=== PATIENT | female | born 1940 | race Caucasian/White ===

== ENCOUNTER 2024-10-07 16:29 | Outpatient (NON) | payer MEDICARE, SELFPAY ==
[2024-10-07 17:10] LABS: Add Urine Microscopic? YES; Appearance Urine Sl Cloudy (Clear); Bilirubin Urine Negative (Negative); Blood Urine Trace-intact (Negative); Color Urine Light Yellow (Yellow); Glucose Urine UA 3+ (Negative); Ketones Urine Negative (Negative); Leukocyte Esterase Ur 2+ (Negative); Nitrate Urine Positive (Negative); Protein Urine Negative (Negative); Urobilinogen Urine 0.2 mg/dL (0.2-1.0)
[2024-10-07 17:18] LABS: Creatinine Urine 31.01 mg/dL (40-278); MALB Creatinine Ratio 97.3 mg/g (0-30); Microalbumin Urine Random 30.2 mg/L
[2024-10-07 17:19] LABS: Bacteria Urine 2+ /hpf; RBC Urine 0-2 /hpf (0-2); Renal Epithelial Cells Urine Few /hpf; Squamous Epithelial Cell Urine Few /hpf (Few); WBC Urine >75 /hpf (0-3)
== END 2024-10-07 16:30 | disposition home or self-care (01) ==
LOC: CHSLAB 16:37
PROVIDERS: Visit Provider Family Medicine
DX: E11.22 Type 2 diabetes mellitus with diabetic chronic kidney disease (principal); N18.30 Chronic kidney disease, stage 3 unspecified
CPT/HCPCS: 81001; 82043

== ENCOUNTER 2024-10-09 09:07 | Outpatient (CLI) | payer MEDICARE, SELFPAY ==
[2024-10-09 10:45] LABS: Ferritin 207 ng/mL (8-252); Iron 35 ug/dL (50-170); Percent Iron Saturation 17 % (12-57); Vitamin B12 620 pg/mL (193-986)
[2024-10-11 11:24] LABS: Ionized Calcium 5.1 mg/dL (4.7-5.5)
== END 2024-10-09 09:08 | disposition home or self-care (01) ==
LOC: CHSLAB 09:15
PROVIDERS: PCP Family Medicine; Visit Provider Family Medicine
DX: D64.9 Anemia, unspecified (principal); E83.51 Hypocalcemia
CPT/HCPCS: 36415; 82330; 82607; 82728; 83540; 83550

== ENCOUNTER 2024-10-18 09:27 | Outpatient (CLI) | payer MEDICARE, SELFPAY ==
[2024-10-18 09:45] LABS: Hemoglobin 9.3 g/dL (11.7-13.8); Mean Corpuscular Hemoglobin 28.5 pg (27.0-31.0); Mean Platelet Volume 9.7 fl (9.2-11.8); Platelet Count Result 308 K/mm3 (150-420); Red Blood Count 3.26 M/mm3 (4.20-5.40); Red Cell Distribution Width 18.1 % (11.6-14.4); White Blood Count 4.8 K/mm3 (4.8-10.8)
[2024-10-18 10:17] LABS: Anion Gap 10 mmol/L (4-12); Blood Urea Nitrogen 15 mg/dL (7-18); Calcium 8.4 mg/dL (8.5-10.1); Carbon Dioxide 27 mmol/L (21-32); Chloride 105 mmol/L (98-108); Estimated Glomerular Filt Rate 52; Glucose 163 mg/dL (70-99); Osmolality Calculated 298 mOsm/kg (285-295); Potassium 3.4 mmol/L (3.5-5.1); Sodium 142 mmol/L (136-145)
== END 2024-10-18 09:28 | disposition home or self-care (01) ==
LOC: CHSLAB 09:30
PROVIDERS: PCP Family Medicine; Visit Provider Family Medicine
DX: E11.22 Type 2 diabetes mellitus with diabetic chronic kidney disease (principal); N18.30 Chronic kidney disease, stage 3 unspecified
CPT/HCPCS: 36415; 80048; 85027

== ENCOUNTER 2024-10-23 16:56 | Outpatient (NON) | payer MEDICARE, SELFPAY ==
[2024-10-23 18:18] LABS: MRSA (PCR) DETECTED (NOT DETECTE)
== END 2024-10-23 16:57 | disposition home or self-care (01) ==
PROVIDERS: Visit Provider Family Medicine
DX: Z22.322 Carrier or suspected carrier of Methicillin resistant Staphylococcus aureus (principal)
CPT/HCPCS: 87641

== ENCOUNTER 2024-11-07 13:44 | Outpatient (CLI) | payer MEDICARE, SELFPAY ==
[2024-11-07 14:01] LABS: Hematocrit 32.1 % (35.0-42.0); Hemoglobin 9.6 g/dL (11.7-13.8); Mean Corpuscular HGB Conc 29.9 g/dL (32-36); Mean Platelet Volume 10.5 fl (9.2-11.8); Platelet Count Result 333 K/mm3 (150-420); Red Blood Count 3.69 M/mm3 (4.20-5.40); Red Cell Distribution Width 16.1 % (11.6-14.4); White Blood Count 11.2 K/mm3 (4.8-10.8)
[2024-11-07 14:47] LABS: Anion Gap 13 mmol/L (4-12); Blood Urea Nitrogen 14 mg/dL (7-18); Carbon Dioxide 25 mmol/L (21-32); Chloride 98 mmol/L (98-108); Estimated Glomerular Filt Rate 55; Glucose 157 mg/dL (70-99); Osmolality Calculated 285 mOsm/kg (285-295); Potassium 3.6 mmol/L (3.5-5.1); Sodium 136 mmol/L (136-145)
[2024-11-07 18:32] LABS: Uric Acid 5.3 mg/dL (2.6-6.0)
== END 2024-11-07 13:45 | disposition home or self-care (01) ==
PROVIDERS: PCP Family Medicine; Visit Provider Family Medicine
DX: R74.01 Elevation of levels of liver transaminase levels (principal); E11.3512 Type 2 diabetes mellitus with proliferative diabetic retinopathy with macular edema, left eye
CPT/HCPCS: 36415; 80048; 84550; 85027

== ENCOUNTER 2024-11-14 15:13 | Outpatient (CLI) | payer MEDICARE, SELFPAY ==
--- OUTSIDE RECORDS SUMMARY | 2024-11-14 15:17 | XMS_ITS | Continuity of Care Document ---
Author Organization [facility] Address [address] [place] [address] Dr [address] [place] [id number] Phone Care Team Providers Care Home Furnishings Sales Representative Name Role Phone Clementine Low OD Unavailable Unavailable Allergies, Adverse Reactions, Alerts Substance Reaction Status Criticality No Known Allergies Active No Inform ation Medications Medication Instructions Dosage Effective Dates (start - stop) Status Comments Ozempic 0.25 mg or 0.5 mg (2 mg/1.5 mL) subcutaneous pen injector inject (0.25MG) by subcutaneous route every week for 4 weeks then inject 0.5 mg subcutaneously once weekly using rotating injectionsites - Active citalopram 10 mg tablet take 1 tablet [...] with morning and evening meals - Active Lipitor 10 mg tablet take 1 tablet by or al route every day 10 MG - Active Norvasc 2.5 mg tablet take 1 tablet by oral route every day 2.5 MG - Active Tirosint 88 mcg capsule take [...] Diagnoses Date Provider Providers Copied on Encounter [facility], [address] [place] [address] [address], [place], [place], [id number], tel:[phone] SEC Ryan L[place] Professional 2 week s/p YAG PC (chief complaint) Post op visit 3 Devante CALI Clementine. [facility] [employer], [address], [place], [place], [address], [place]. tel:[phone] Referring Provider: Marni Barbosa MD, [address] [employer] [address], [place], [address]. tel:[phone] [facility], [facility] [employer] [address], [place], [place], [address], tel:[phone] SEC Ryan [place] Professional YAG PC (chief complaint) Presence of intraocular lensOther secondary cataract, left eye Mar-3 3 Gabino Lanier. [address] [facility], [facility] [place] [place], [address], [place]. tel:[phone] Referring Provider: Marni Barbosa MD, [address] [place], [address]. tel:[phone] Office/outpa tient Visit, Est [facility], [facility] [employer] [address], [place], [place], [address], [place] tel:[phone] SEC Ryan MYERS Professional Diabetic eye exam (chief complaint) Presence of intraocular lensType 2 diab with mild nonp rtnop without mclr edema, r eyeVitreous degeneration, right eyeOther secondary cataract, bilateralDry eye syndrome of bilateral lacrimal glandsOther secondary cataract, right eye Mar-0 3 Gabino Lanier. [address] [facility], [facility] [place], [address], [place]. tel:[phone] Referring Provider: Marni Barbosa MD, [address] [employer], [place], [address]. tel:[phone] [facility], [address] [place] [address] [address], [place], [place], [address], [place] tel:[phone] SEC [facility] Professional diabetic eye exam (chief complaint) Presence of intraocular lensType 2 diab with mild nonp rtnop without mclr edema, r eye Apr- 1 Lloyd Ynanick. [address] [facility], [address], [place], [place], [address], [place]. tel:[phone] Referring Provider: Marni Barbosa MD, [address] [employer] [address], [place], [address]. tel:[phone] [facility], [address] [place], [place] [address]st [facility] [address], [place], [place], [address], [place] tel:[phone] SEC [facility] Professional No Information b-0 0 Grant OD Luis. [address] [place] [address], [address] [place] [address], [place], [address], [place]. tel:[phone] Referring Provider: Marni Barbosa MD, [address] [employer] [address], [place], [address]. tel:[phone] [facility], [facility] [employer] [address], [place], [place], [address], [place] tel:[phone] SEC [facility] Professional Complete Exam (chief complaint) Viral conjunctiviti s of both eyesAllergic conjunctiviti s of both eyesPresence of intraocular lensType 2 diabetes mellitus without complication, without long-term current use of insulin b-0 0 Grant OD Luis. [address] [place] [address], [address] [place] [address], [place], [address], [place]. tel:[phone] Referring Provider: Marni Barbosa MD, [address] [employer] [address], [place], [address]. tel:[phone] [facility], [address] [place] [address] [address], [place], [place], [address], [place] tel:[phone] SEC [place] Professional Burning (chief complaint) Viral conjunctiviti s of both eyesAllergic conjunctiviti s of both eyes 0 Grant Batistaic. [address] [facility], 6th Floor, [place], [address], [place]. tel:[phone] Referring Provider: Marni Barbosa MD, [address], [place], [address]. tel:[phone] [facility] Eye [facility], [address] [place] [address], [place], [place], [address], [place] tel:[phone] SEC [place] Professiona l No Information 0 Gabino Lanier. [address] [facility], [address], [place], [place], [address], [place]. tel:[phone] Family History Family Member Type Diagnosis Age At Onset No Information Payers Payer name Insurance type Covered libertarian ID Authoriza tion(s) No Information Social History [...] is working for Dr. Barbosa due to Chelesy being out due to a surgery. Patient [...]
[2024-11-14 15:31] LABS: Basophils Absolute Auto 0.04 K/mm3 (0.00-0.10); Basophils Percent Auto 0.6 % (0.0-1.0); Eosinophils Absolute Auto 0.29 K/mm3 (0.02-0.50); Eosinophils Percent Auto 4.7 % (1.0-6.0); Hematocrit 32.1 % (35.0-42.0); Hemoglobin 9.4 g/dL (11.7-13.8); Immature Granulocyte Absolute 0.03 K/mm3 (0.00-0.00); Immature Granulocyte Percent A 0.5 % (0.0-0.0); Lymphocytes Absolute Auto 2.23 K/mm3 (1.10-4.50); Mean Corpuscular HGB Conc 29.3 g/dL (32-36); Mean Corpuscular Hemoglobin 25.5 pg (27.0-31.0); Mean Corpuscular Volume 87.2 fL (78.0-102.0); Mean Platelet Volume 9.5 fl (9.2-11.8); Monocytes Percent Auto 14.5 % (2.0-11.0); Neutrophils Percent Auto 43.7 % (50.0-70.0); Platelet Count Result 383 K/mm3 (150-420); Red Blood Count 3.68 M/mm3 (4.20-5.40); Red Cell Distribution Width 16.1 % (11.6-14.4); White Blood Count 6.2 K/mm3 (4.8-10.8)
[2024-11-14 16:08] LABS: Anion Gap 10 mmol/L (4-12); Blood Urea Nitrogen 11 mg/dL (7-18); Calcium 8.4 mg/dL (8.5-10.1); Carbon Dioxide 26 mmol/L (21-32); Chloride 100 mmol/L (98-108); Estimated Glomerular Filt Rate 44; Glucose 106 mg/dL (70-99); Osmolality Calculated 281 mOsm/kg (285-295); Sodium 136 mmol/L (136-145)
== END 2024-11-14 15:14 | disposition home or self-care (01) ==
LOC: CHSLAB 15:15
PROVIDERS: PCP Family Medicine; Visit Provider Family Medicine
DX: I50.30 Unspecified diastolic (congestive) heart failure (principal); I27.20 Pulmonary hypertension, unspecified; N18.30 Chronic kidney disease, stage 3 unspecified
CPT/HCPCS: 36415; 80048; 85025

== ENCOUNTER 2024-11-27 16:56 | Outpatient (NON) | payer MEDICARE, SELFPAY ==
--- OUTSIDE RECORDS SUMMARY | 2024-11-27 17:00 | XMS_ITS | Continuity of Care Document ---
Author Organization [facility] Address [address] [place] [address] Dr [address] [place] [address] Phone Care Team Providers Care Director Speech Language Name Role Phone Clementine Low OD Unavailable [...] once weekly using rotating injectionsites - Active Glucotrol 5 mg tablet take [...] Diagnoses Date Provider Providers Copied on Encounter [facility], [address] [place] [address] [address], [place], [place], [address], tel:[phone] SEC Ryan L[place] Professional 2 week s/p YAG PC (chief complaint) Post op visit 3 Devante CALI Clementine. [facility] [place], [address], [place], [place], [address], [place]. tel:[phone] Referring Provider: Marni Barbosa MD, [address] [employer], [place], [address]. tel:[phone] [facility], [facility] [employer] [address], [place], [place], [address], tel:[phone] SEC Ryan [place] Professional YAG PC (chief complaint) Presence of intraocular lensOther secondary cataract, left eye Mar-3 3 Gabino Lanier. [address] [facility], [facility] [place], [place], [address], [place]. tel:[phone] Referring Provider: Marni Barbosa MD, [address] [place], [address]. tel:[phone] Office/outpa tient Visit, Est [facility], [facility] [employer] [address], [place], [place], [address], [place] tel:[phone] SEC Ryan MYERS Professional Diabetic eye exam (chief complaint) Presence of intraocular lensType 2 diab with mild nonp rtnop without mclr edema, r eyeVitreous degeneration, right eyeOther secondary cataract, bilateralDry eye syndrome of bilateral lacrimal glandsOther secondary cataract, right eye Mar-0 3 Gabino Lanier. [address] [facility], [facility] [place], [address], [place]. tel:[phone] Referring Provider: Marni Barbosa MD, [address] [employer], [place], [address]. tel:[phone] [facility], [address] [place] [address] [address], [place], [place], [address], [place] tel:[phone] SEC [facility] Professional diabetic eye exam (chief complaint) Presence of intraocular lensType 2 diab with mild nonp rtnop without mclr edema, r eye Apr- 1 Lloyd Yannick. [address] [facility], [address], [place], [place], [address], [place]. tel:[phone] Referring Provider: Marni Barbosa MD, [address] [employer], [place], [address]. tel:[phone] [facility], [address] [place], [place] [address] [address], [place], [place], [address], [place] tel:[phone] SEC [facility] Professional No Information b-0 0 Grant OD Luis. [address] [place] [address], [address] [place] [address], [place], [address], [place]. tel:[phone] Referring Provider: Marni Barbosa MD, [address] [employer], [place], [address]. tel:[phone] [facility], [facility] [address], [place], [place], [address], [place] tel:[phone] SEC [facility] Professional Complete Exam (chief complaint) Viral conjunctiviti s of both eyesAllergic conjunctiviti s of both eyesPresence of intraocular lensType 2 diabetes mellitus without complication, without long-term current use of insulin b-0 0 Grant OD Luis. [address] [place] [address], [address] [place] [address], [place], [address], [place]. tel:[phone] Referring Provider: Marni Barbosa MD, [address] [employer], [place], [address]. tel:[phone] [facility], [address] [place] [address] [address], [place], [place], [address], [place] tel:[phone] SEC [place] Professional Burning (chief complaint) Viral conjunctiviti s of both eyesAllergic conjunctiviti s of both eyes 0 Grant Batistaic. [address] [facility], 6th Floor, [place], [address], [place]. tel:[phone] Referring Provider: Marni Barbosa MD, [address], [place], [address]. tel:[phone] [facility] Eye [facility], [address] [place] [address], [place], [place], [address], [place] tel:[phone] SEC [place] Professiona l No Information 0 Gabino Lanier. [address] [facility], [address], [place], [place], [address], [place]. tel:[phone] Family History Family Member Type Diagnosis Age [...]
[2024-11-27 18:30] LABS: MRSA (PCR) NOT DETECTED (NOT DETECTE)
== END 2024-11-27 16:57 | disposition home or self-care (01) ==
LOC: CHSLAB 16:58
PROVIDERS: Visit Provider Family Medicine
DX: I70.0 Atherosclerosis of aorta (principal); I27.20 Pulmonary hypertension, unspecified; J96.01 Acute respiratory failure with hypoxia
CPT/HCPCS: 87641

== ENCOUNTER 2024-12-02 16:43 | Outpatient (NON) | payer MEDICARE, SELFPAY ==
--- OUTSIDE RECORDS SUMMARY | 2024-12-02 16:48 | XMS_ITS | Continuity of Care Document ---
Author Organization [facility] Address [address] [place] [address] [address] [place] [address] Phone Care Team Providers Care Nutrition Services Assistant Name Role Phone Clemetnine Low OD Unavailable Unavailable Allergies, Adverse Reactions, [...] once weekly using rotating injectionsites - Active Glucophage 500 mg tablet take 1 tablet by oral route 2 times every day with morning and evening meals - Active Zestoretic 10 mg-12.5 mg tablet take 1 tablet by oral route every day 1.00 tablet - Active Glucotrol 5 mg tablet take 1 tablet by oral route 2 times every day before meals - Active Lipitor 10 mg tablet [...] Diagnoses Date Provider Providers Copied on Encounter [facility], [address] [place] [address] [employer] [address], [place], [place], [id number], tel:[phone] SEC Ryan L[place]IS Professional 2 week s/p YAG PC (chief complaint) Post op visit 3 Devante CALI Clementine. [facility] [employer], [address], [place], [place], [id number], [place]. tel:[phone] Referring Provider: Marni Barbosa MD, [address] [employer], [place], [address]. tel:[phone] [facility], [facility] [employer] [address], [place], [place], [id number], tel:[phone] SEC [place] Professional YAG PC (chief complaint) Presence of intraocular lensOther secondary cataract, left eye Mar-3 3 Gabino Lanier. [address] [facility] [place], [address], [place]. tel:[phone] Referring Provider: Marni Barbosa MD, [address] [place], [address]. tel:[phone] Office/outpa tient Visit, Est [facility], [facility] [employer] [address], [place], [place], [id number], [place] tel:[phone] SEC Ryan MYERS Professional Diabetic eye exam (chief complaint) Presence of intraocular lensType 2 diab with mild nonp rtnop without mclr edema, r eyeVitreous degeneration, right eyeOther secondary cataract, bilateralDry eye syndrome of bilateral lacrimal glandsOther secondary cataract, right eye Mar-0 3 Gabino Lanier. [address] [facility], [facility] [place], [place], [id number], [place]. tel:[phone] Referring Provider: Marni Barbosa MD, [address] [employer], [place], [address]. tel:[phone] [facility], [id number] [place] [address] [address], [place], [place], [id number], [place] tel:[phone] SEC [facility] Professional diabetic eye exam (chief complaint) Presence of intraocular lensType 2 diab with mild nonp rtnop without mclr edema, r eye Apr- 1 Lloyd Yannick. [address] [facility], [address], [place], [place], [id number], [place]. tel:[phone] Referring Provider: Marni Barbosa MD, [address] [employer], [place], [address]. tel:[phone] [facility], [address] [place], [place] [address] [address], [place], [place], [id number], [place] tel:[phone] SEC [facility] Professional No Information b-0 0 Grant OD Luis. [address] [place] [address], [address] [place] [address], [place], [address], [place]. tel:[phone] Referring Provider: Marni Barbosa MD, [address] [employer], [place], [address]. tel:[phone] [facility], [facility] [employer] [address], [place], [place], [id number], [place] tel:[phone] SEC [facility] Professional Complete Exam (chief complaint) Viral conjunctiviti s of both eyesAllergic conjunctiviti s of both eyesPresence of intraocular lensType 2 diabetes mellitus without complication, without long-term current use of insulin b-0 0 Grant OD Luis. [address] [place] [address], [address] [place] [address], [place], [address], [place]. tel:[phone] Referring Provider: Marni Barbosa MD, [address] [employer], [place], [address]. tel:[phone] [facility], [id number] [place] [address] [address], [place], [place], [id number], [place] tel:[phone] SEC [place] Professional Burning (chief complaint) Viral conjunctiviti s of both eyesAllergic conjunctiviti s of both eyes 0 Grant Batistaic. [address] [facility], [address], [place], [address], [place]. tel:[phone] Referring Provider: Marni Barbosa MD, [address], [place], [address]. tel:[phone] [facility], [address] [place] [address], [place], [place], [id number], [place] tel:[phone] SEC Ryan [place] Professiona l No Information 0 Gabino Lanier. [address] [facility], [address], [place], [place], [id number], [place]. tel:[phone] Family History Family Member Type Diagnosis Age At Onset No Information Payers Payer name Insurance type Covered republican ID Authoriza tion(s) No Information Social History [...]
[2024-12-02 19:19] LABS: MRSA (PCR) NOT DETECTED (NOT DETECTE)
== END 2024-12-02 16:44 | disposition home or self-care (01) ==
LOC: CHSLAB 16:46
PROVIDERS: Visit Provider Family Medicine
DX: J96.01 Acute respiratory failure with hypoxia (principal); J81.0 Acute pulmonary edema; I27.20 Pulmonary hypertension, unspecified
CPT/HCPCS: 87641

== ENCOUNTER 2025-01-07 09:05 | Outpatient (CLI) | payer MEDICARE, SELFPAY ==
--- NOTE | ~2025-01-07 | XR_ITS ---
Lumbosacral Spine: AP and lateral views Clinical History: Pain Findings: The normal lordotic curve is maintained. No fracture or subluxation evident. There is moder ate degenerative disc narrowing at L1-L2. There is mild to moderate facet arthropathy, worse from L3 through S1. The sacroiliac joints are normally outlined. Impression: Mild degenerative spondylosis overall, as detailed above. Reviewed, dictated and finalized at location M. Impression: Mild degenerative spondylosis overall, as detailed above.
--- OUTSIDE RECORDS SUMMARY | 2025-01-07 09:52 | XMS_ITS | Clinical Summary ---
Author Organization [facility] [address] Address [address] [place] [address] Phone Care Team Providers Care Crane Hooker Name Role Phone Marni Barbosa MD Primary Care Provider [phone] Jag Burch MD Unavailable [phone] Homero Ordoñez NP Unavailable [phone] Allergies No known active allergies Medications turmeric root extract 500 mg capsuleIndications :Arthritis of knee Take 500 mg by mouth 3 (three) times a day 90 capsule 6 08/22/20 21 Active Additional Information Patient not taking.Reported on 12/25/2024 blood-glucose meter miscIndications:Ty pe 2 diabetes mellitus without complication, without long-term current use of insulin ([facility]) Use to test blood glucose once daily. 1 each 12/10/19 24 Active lancets (OneTouch Delica Plus Lancet) 30 gauge miscIndications:Ty pe 2 diabetes mellitus without complication, without long-term current use of insulin (HCC) Use to check blood glucose levels once daily E11.9 dispense preferred brand by insurance 100 each 3 12/10/[address] (CYMBALTA) 20 mg capsuleIndications :Postural kyphosis of thoracic region,Arthritis of knee,Adjustment insomnia Take 1 capsule (20 mg total) by mouth nightly 90 capsule 1 07/24/20 24 Active levothyroxine (SYNTHROID) 88 mcg tabletIndications: Hypothyroidism, adult Take 1 tablet (88 mcg total) by mouth engraver ornamental design before breakfast 90 tablet 2 07/24/20 24 Active blood glucose diagnostic (glucose blood) stripIndications:T ype 2 diabetes mellitus with stage 3b chronic kidney disease, without long-term current use of insulin ([facility]) Use to test blood glucose once daily. Dispense one touch Verio test strips 100 each 3 07/24/20 24 025 Active atorvastatin (LIPITOR) 40 mg tabletIndications: Type 2 diabetes mellitus with stage 3b chronic kidney disease, without long-term current use of insulin ([facility]),Multiple-typ e hyperlipidemia Take 1 tablet (40 mg total) by mouth daily 90 tablet 2 07/24/20 24 Active ergocalciferol (VITAMIN D) 50,000 unit capsuleIndications :Vitamin D Deficiency Take 1 capsule (50,000 Units total) by mouth once a week Active difluprednate (DUREZOL) 0.05 % drops INSTILL 1 DROP INTO EACH EYE 4 TIMES DAILY 08/02/20 24 Active midodrine (PROAMATINE) 10 mg tabletIndications: Symptomatic Orthostatic Hypotension Take 1 tablet (10 mg total) by mouth 3 (three) times a day before meals 90 tablet 09/26/[address] (PROTONIX) 40 mg EC tabletIndications: Treatment of Non-Bleeding Gastric Disorder Take 1 tablet (40 mg total) by mouth daily 30 tablet 09/27/20 24 Active senna-docusate (PERICOLACE) 8.6-50 mgIndications:cons tipation Take 1 tablet by mouth 2 (two) times a day as needed for constipation 09/26/20 24 Active carvediloL (COREG) 12.5 mg tabletIndications: Hypertension complicating diabetes (HCC) Take 0.5 tablets (6.25 mg total) by mouth 2 (two) times a day with meals 180 tablet 2 10/03/20 24 026 Active lisinopriL (PRINIVIL,ZESTRIL) 2.5 mg tablet Take 1 tablet (2.5 mg total) by mouth daily 90 tablet 3 11/13/19 25 026 Active furosemide (LASIX) 40 mg tablet Take 1 tablet (40 mg total) by mouth daily 90 tablet 3 11/13/19 25 026 Active spironolactone (ALDACTONE) 25 mg tablet Take 1 tablet (25 mg total) by mouth daily 90 tablet 3 11/13/19 25 026 Active dapagliflozin propanediol (FARXIGA) 10 mg tablet 1 tablet (10 mg total) Active traMADoL (ULTRAM) 50 mg tablet Take 1 tablet (50 mg total) by mouth every 6 (six) hours as needed for pain Active empagliflozin (JARDIANCE) 10 mg tabletIndications: Heart Failure Take 1 tablet (10 mg total) by mouth daily 30 tablet 10/03/20 24 025 Discontin ued(Alter devin therapy) Active Problems Problem Noted Date Diagnosed Date Acute on chronic heart failu re with preserved ejection fraction 11/15/2024 Overview (11/15/2024): October 10, 2024 hospitalization for hypotension found abnormal echo pulmonary hypertension and HFpEF: CONCLUSIONS: Normal left ventricular systolic function with no focal wall motion abnormalities. Normal left ventricular size. Mild concentric left ventricular hypertrophy. Impaired diastolic relaxation Grade I. Ejection Fraction is estimated to be 65 %. Mild aortic valve regurgitation. Moderate pulmonary hypertension based on right ventricular systolic pressure. Estimated peak RVSP is 50 mmHg. Mild tricuspid regurgitation. Electronically Signed By: Dorian Restrepo MD 09/25/2024 4:27:21 PM NUT CULLER Moderate pulmonary hypertension 11/15/2024 Overview (11/15/2024): Discovered during hospitalization September 2025. Requested advice from Cardiology regarding further workup. Please refer to information under HFpEF Diarrhea 09/23/2024 Diabetic macular edema of left eye 09/23/2024 Assessment & Plan (12/25/2024 7:03 AM NUT CULLER): Stable today. Will follow with OCT after stopping difluprednate drops Assessment & Plan (09/23/2024 9:58 PM NUT CULLER): Resolved today with oral prednisone taper. Will follow with OCT as she has stopped prednisone. UTI (urinary tract infection) 09/22/2024 Assessment & Plan (09/22/2024 3:51 PM NUT CULLER): Acute, found upon recent ER visit s/p fall on 09/18/24. Was given macrobid at first but culture came back resistant and was started on keflex on 09/20/24. Patient appears ill, afebrile, BP stable while sitting but orthostatic dropped almost 30 points. No acute abdominal findings or CVA tenderness. Consulted with Dr. Barbosa in office today, she recommends direct admit for UTI/dehydration. -accepted at [facility]. Weakness 09/22/2024 Assessment & Plan (09/22/2024 4:33 PM NUT CULLER): Worse in the last 1-2 weeks but uncontrollable in the last 2 days. Likely related to questionable urosepsis, see plan for UTI above. Dehydration 09/22/2024 Assessment & Plan (09/22/2024 4:39 PM NUT CULLER): Acute, found upon recent CMP done in ER s/p fall 4 days ago. Na 133, chloride 95, creatinine stable. Orthostatic BP dropped almost 30 points upon standing in office today. Oral mucous membranes are pale and dry, skin is pale, turgor is slow. Consulted with Dr. Barbosa in office today, she suggested direct admit, accepted by Dr. Freedman at [facility]. Orthostatic hypotension 09/22/2024 Assessment & Plan (09/22/2024 4:40 PM NUT CULLER): Acute, + in office today. See plan for dehydration below. Accepted for direct admit to [facility]. Intermediate uveitis of both eyes 08/07/2024 Overview (08/19/2024): Diagnosis: Intermediate uveitis both eyes Complications: None Last active: 08/07/24 ou Systemic associations: None Labs: Positive: None Negative/normal: T pallidum antibody and CXR Care Team: Other notes: Referred by Tawanda Fournier Assessment & Plan (12/25/2024 7:02 AM NUT CULLER): She has no active inflammation today. She has had multiple adverse effects from prednisone including falls and hyperglycemia. Will plan for Ozurdex for further therapy if needed.. OK to stay off of steroid drops. Assessment & Plan (09/23/2024 9:53 PM NUT CULLER): She has no active inflammation today after stopping prednisone. She has had multiple adverse effects from prednisone including falls and hyperglycemia. Will plan for Ozurdex for further therapy if needed.Continue difluprednate to daily OU. Assessment & Plan (08/19/2024 10:56 PM CDT): She has no active inflammation today. Continue prednisone taper: 50 mg for 1 week, then 40 mg for 1 week, then 30 mg for 1 week, then 25 mg for 1 week, then 20 mg for 1 week, then 15 mg for 1 week, then 12.5 mg for 1 week, then 10 mg for 1 week, then continue 7.5 mg daily. Decrease difluprednate to daily OU. Assessment & Plan (08/07/2024 9:46 PM CDT): She has active inflammation OU. Need to obtain treponemal testing to complete workup. If this is negative Start prednisone 60 mg daily for 2 weeks, then 50 mg for 1 week, then 40 mg for 1 week, then 30 mg for 1 week, then 25 mg for 1 week, then 20 mg for 1 week, then 15 mg for 1 week, then 12.5 mg for 1 week, then 10 mg for 1 week, then continue 7.5 mg daily. Decrease difluprednate to BID OU as she is quiet anteriorly. Type 2 diabetes mellitus with chronic kidney dis ease 07/24/2024 Assessment & Plan (12/25/2024 7:01 AM NUT CULLER): She has persistent CME that is stable and non-central OS. Observe at this point, stressed BG control. Assessment & Plan (09/23/2024 9:54 PM NUT CULLER): She is off of oral prednisone and per patient report has stopped glypizide due to hypoglycemia. She does have evidence of mild diabetic retinopathy. Continue to follow closely with PCP. Assessment & Plan (08/19/2024 10:57 PM CDT): Blood glucose stable with addition of glipizide. Continue to follow closely with PCP, though I am reassured by her recent BG readings. Collapsed arches 05/03/2023 Overview (05/03/2023): Arch support shoes with metatarsal pad from [employer] shoes Hematoma and contusion 03/09/2023 Assessment & Plan (03/09/2023 2:05 PM CDT): To R forehead, see plan for fall above. Fall from slip, trip, or stumble, subsequent enc ounter 03/09/2023 Assessment & Plan (03/09/2023 2:08 PM CDT): S/p fall 8 days ago, see HPI for details. Imaging done in ER was unremarkable. No acute symptoms or findings on exam, Neuro intact. Vitals stable. Continue Tylenol as needed. Discussed strict fall precautions. Keep follow in 2 months, sooner if needed. Lateral knee pain, left 03/09/2023 Assessment & Plan (03/09/2023 2:05 PM CDT): S/p fall 8 days ago, XR in ER was unremarkable. No acute findings on exam. Continue Tylenol as needed. Heat/ice as tolerated. Postural kyphosis of thoracic region 12/20/2021 Arthritis of knee 08/22/2021 Hypothyroidism, adult 11/04/2019 Overview (11/04/2019): Omeprazole has been interfering With absorption and TSH is been fluctuating Multiple-type hyperlipidemia 11/04/2019 Hypertension complicating diabetes 06/11/2019 Assessment & Plan (12/09/2019 11:28 AM NUT CULLER): Blood pressure much better controlled. She brought home log and cuff with her to today's visit and blood pressure 120-140 systolic and 70-80 diastolic. We will continue present medication regimen and refills will be sent to pharmacy. Assessment & Plan (11/11/2019 11:33 AM NUT CULLER): Blood pressure remains elevated, but better controlled than last week when systolic was >190 and DBP >100. Her home readings are in the 150-180 systolic range normally and 70-80 range diastolic. She has been taking lisinopril/hctz at increased dose, which we will continue. She will also be started on norvasc for a goal SBP<140 and DBP<90. Patient will continue to monitor BP daily and bring her log and blood pressure cuff with her to her next visit in 4 weeks. Assessment & Plan (11/04/2019 5:05 PM NUT CULLER): With uncontrolled blood pressure upon arrival to the office. She was given a dose of clonidine 0.1mg and BP improved. She has no acute visual changes, acute headache, weakness, facial droop or slurred speech noted. Increase in blood pressure is most likely secondary to her recent stress with her son's illness. She will increase her lisinopril/hctz dose to two tablets daily. She will call if her BP remains elevated. She was instructed that if her SBP is >180 or DBP >100 and does not improve with rest and medication she will need to call or go to the ER if after hours. She will follow up in one week with BP log and cuff. History of adenomatous polyp of colon 04/30/2019 Diabetes mellitus, type 2 Assessment & Plan (08/07/2024 9:47 PM CDT): She has evidence of non-proliferative diabetic retinopathy OU today. She is aware that the prednisone will likely increase her blood sugar and she will need to follow closely with her PCP, who has been alerted of this. Discussed that some patients require insulin while on prednisone. Resolved Problems Problem Noted Date Diagnosed Date Resolved Date UTI symptoms 07/07/2020 08/22/2021 Assessment & Plan (08/17/2021 4:23 PM CDT): Patient presents with reports of dysuria, urinary pressure and left flank pain x 3 days. She on exam has some suprapubic tenderness, no CVA tenderness. There is concern with her symptoms and history for underlying UTI. We will do UA for further evaluation. She will be started on antibiotic therapy. She will keep f/u next week or return sooner if needed. Assessment & Plan (07/07/2020 2:54 PM CDT): Pt started UTI symptoms 2 days ago and has had hematuria, dysuria and frequency along with some LBP and low abdominal pain. Afebrile. UA with C/S today and start Macrobid 100mg BID x 5 days. WE will call with results. F/U KMS 08/06/20 Mood disorder 12/09/2019 12/04/2023 Assessment & Plan (12/09/2019 12:18 PM NUT CULLER): Patient reports issues of anxiety, tearfulness and depression with coping through her son's cancer and hospice care. Have discussed with patient and we will begin a low dose celexa. She will follow up in 6 weeks to determine effectiveness. She is to call with any questions or concerns. Grief support group encouraged Blurred vision 11/11/2019 08/22/2021 Assessment & Plan (11/11/2019 11:30 AM NUT CULLER): Patient is reporting blurred vision worse in the left eye. She states it feels like there is a film over her eyes at times. She was instructed after her visit last week to follow up with the eye doctor, but she did not make an appointment. An appointment was made for her tomorrow 11/12/19 at 2:30 she was encouraged to keep that appointment. Uncontrolled type 2 diabetes mellitus with hyperglycemia 11/04/2019 12/04/2023 Acute conjunctivitis of left eye 11/04/2019 08/22/2021 Assessment & Plan (11/11/2019 11:29 AM NUT CULLER): Improved s/p antibiotic eye drops. There is concern for possible allergic component as she reports occasional clear discharge and redness. She was encouraged to continue daily allergy pill and to see toe puller for further evaluation. Assessment & Plan (11/04/2019 5:02 PM NUT CULLER): Patient has erythema and mucoid discharge noted in left lower conjunctiva, with concern for possible bacterial conjunctivitis. Antibiotic ophthalmic solution sent. Patient instructed to use 2 drops in left eye QID x 5 days. If symptoms worsen or persist she was instructed to call. Encounters Date Type Department Care Team Description 12/25/2024 2:15 PM NUT CULLER Office Visit [facility] at [address] [place] [address] Homero Ordoñez NP History of adenomatous polyp of colon (Primary Dx); Type 2 diabetes mellitus with other ophthalmic complication, without long-term current use of insulin (HCC); Orthostatic hypotension; Congestive heart failure, unspecified HF chronicity, unspecified heart failure type (HCC); Type 2 diabetes mellitus with chronic kidney disease, without long-term current use of insulin, unspecified CKD stage (HCC) 12/22/2024 10:30 AM NUT CULLER Office Visit [facility] [address] [place] [address] Jurgen Davis MD Intermediate uveitis of both eyes (Primary Dx); 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); Type 2 diabetes mellitus with chronic kidney disease, without long-term current use of insulin, unspecified CKD stage (HCC) 11/20/2024 Telephone [facility] [place] [address] Jurgen Davis MD Medical Records Request 11/13/2024 1:30 PM NUT CULLER Office Visit [facility] at [address] [place] [phone] Homero Ordoñez NP History of adenomatous polyp of colon (Primary Dx); Type 2 diabetes mellitus with other ophthalmic complication, without long-term current use of insulin (HCC); Orthostatic hypotension; Type 2 diabetes mellitus with chronic kidney disease, without long-term current use of insulin, unspecified CKD stage (HCC); Dehydration; Congestive heart failure, unspecified HF chronicity, unspecified heart failure type (HCC) 11/13/2024 Orders Only [facility] at [address] [place] [phone] Homero Ordoñez NP Congestive heart failure, unspecified HF chronicity, unspecified heart failure type (HCC) (Primary Dx) from Last 3 Months Immunizations Immunization Administration Dates Next Due COVID-19 MRNA (MODERNA) .5 M L (50 MCG) VACCINE (12 YEARS AND UP) 08/02/2023 COVID-19 mRNA (PFIZER) 0.3 m L (30 mcg) vaccine (12 years and up) 08/07/2024 Influenza, Quadrivalent, Hig h Dose, Preservative Free, Intrr 07/19/2023,08/06/2022,07/12/2021,07/01 Influenza, Trivalent, High D ose, Split, Preservative Free, Intramuscular 08/07/2024,07/01/2020,07/19/2019 Influenza, Unspecified 07/19/2023,08/06/2022 Moderna Sars-cov-2 Bivalent Vaccine 50 Mcg/0.5 mL (12+ YRS)-Blue/[place]cock 08/06/2022 Pfizer SARS-CoV-2 Monovalent Vaccination (12+ Yrs) PURPLE 08/01/2021,12/28/2020,11/29/2020 Pneumococcal Conjugate PCV 13 07/19/2019 Pneumococcal Polysaccharide PPV23 08/06/2020 RSV Vaccine, Pref, Recombina nt, Subunit, Adjuvanted, PF, IM (Arexvy) 01/26/2024 Sars-cov-2 Covid-19 Mrna, Bi valent, Original/omicron Ba.1 01/26/2024 Tdap 06/22/2021 ZOSTER Recombinant 02/01/2023,11/10/2022 Surgical History Surgery Date Site/Laterality Comments CHOLECYSTECTOMY 08/20/2018 HYSTERECTOMY 10/22/1979 - 10/21/1980 VARICOSE VEIN SURGERY 10/22/1974 - 10/21/1975 CATARACT EXTRACTION 10/22/2017 - 10/21/2018 Bilateral COLONOSCOPY 10/22/2016 - 10/21/2017 Single polyp in [place] Medical History Medical History Date Comments Diabetes mellitus, type 2 (HCC) Hypertension Hypothyroid Cataract bilateral Varicose vein of leg Measles Chicken pox H/O bladder infections H/O ulcer disease Endometriosis Family History Medical History Relation Name Comments Heart attack Father Hypertension Other Lung cancer Sister Relation Name Status Comments Father Other Sister Social History Tobacco Use Types Packs/Day Years Used Date Smoking Tobacco: Never Smokeless Tobacco: Never Tobacco Cessation:Counseling Given: Not Answered Alcohol Use Standard Drinks/Week Comments Not Currently 0 (1 standard drink = 0.6 oz pur e alcohol) [facility] Utilities Answer Date Recorded In the past 12 months has e [employer], gas, oil, or water [employer] threatened to shut off services in your home? No 09/23/2024 Social Connection and Isolation Panel [NHANES] A nswer Date Recorded In a typical week, how many times do you talk on the phone with family, friends, or neighbors? Three times a week 09/23/2024 How often do you get togethe r with friends or relatives? Once a week 09/23/2024 How often do you attend chur ch or adventism services? Never 09/23/2024 Do you belong to any clubs o r organizations such as evangelical groups, unions, fraternal or athletic groups, or school groups? No 09/23/2024 How often do you attend meet ings of the clubs or organizations you belong to? Never 09/23/2024 Are you , , di vorced, , never , or living with a partner? 09/23/2024 AUDIT-C Answer Date Recorded Q1: How often do you have a drink containing alcohol? Never 09/22/2024 Q2: How many drinks containi ng alcohol do you have on a typical day when you are drinking? Patient does not drink Q3: How often do you have si x or more drinks on one occasion? Never 09/22/2024 Overall Financial Resource Strain (CARDIA) Answe r Date Recorded How hard is it for you to pa y for the very basics like food, housing, medical care, and heating? Not very hard 09/23/2024 PHQ-2 Answer Date Recorded PHQ-2 Total Score (If total score is 3 or more points, staff should administer the PHQ-9) 1 07/24/2024 [facility] - Occupational Stress Questionnaire Answer Date Recorded Do you feel stress - tense, restless, nervous, or anxious, or unable to sleep at night because your mind is troubled all the time - these days? To some extent 09/19/2024 Hunger Vital Sign Answer Date Recorded Within the past 12 months, y ou worried that your food would run out before you got the money to buy more. Never true 09/23/20 24 Within the past 12 months, t he food you bought just didn't last and you didn't have money to get more. Never true 09/23/2024 PRAPARE - Transportation Answer Date Re corded In the past 12 months, has l ack of transportation kept you from medical appointments or from getting medications? No 12/2023 In the past 12 months, has l ack of transportation kept you from meetings, work, or from getting things needed for daily living? No 09/23/2024 Housing Stability Vital Sign Answer Sachin e Recorded In the last 12 months, was t here a time when you were not able to pay the mortgage or rent on time? No 09/23/2024 In the past 12 months, how m any times have you moved where you were living? 0 09/23/2024 At any time in the past 12 m [facility], were you homeless or living in a longterm (including now)? No 09/23/2024 Personal Safety Answer Date Recorded Have you ever been in or are you currently in a harmful physical or emotional relationship or is someone making you feel afraid or unsafe? Denies 09/22/2024 Comments No Sex and Gender Information Value Date Recorded Sex Assigned at Not on file Legal Sex Female 11:43 AM NUT CULLER Gender Identity Not on file Sexual Orientation Not on file Occupation Industry Job Start Date Job End Date retired Not on file Not on file Not on file Obstetrics History Para Term AB IAB SAB Ectopic Multiple Livin g Live Births 4 3 3 Date Outcome GA Total Labor Labor/2nd/3rd Weight Sex Type Anes PTL Krista A1 A5 Name Clin Term Term Term Last Filed Vital Signs Vital Sign Reading Time Taken Comments Blood Pressure 139/74 12/25/2024 2:18 PM NUT CULLER Pulse 88 12/25/2024 2:18 PM NUT CULLER Temperature 36.7 C (98.1 F) 10/03/2024 2:53 PM NUT CULLER Respiratory Rate 18 12/25/2024 2:18 PM NUT CULLER Oxygen Saturation 93% 10/03/2024 2:53 PM NUT CULLER Inhaled Oxygen Concentration - - Weight 64.9 kg (143 lb) 12/25/2024 2:18 PM NUT CULLER Height 160 cm (5' 3 ) 12/25/2024 2:18 PM NUT CULLER Body Mass Index 25.33 12/25/2024 2:18 PM NUT CULLER Plan of Treatment Health Maintenance Due Date Last Done Comments Lipid Panel 04/20/2021 04/20/2020 Hemoglobin A1C 01/14/2025 07/17/2024, 0 05/2024, 04/26/2023, Additional history exists Covid-19 Vaccine (2023-2 5 season) 2025 08/07/2024, 01/26/2024, 01/26/2024, Additional history exists Albumin Creatinine Ratio, Urine 07/17/2025 07/17/2024, 10/29/2023, 04/26/2023, Additional history exists Depression Screening 07/24/2025 07/24/2024, 05/03/2023, 05/02/2022, Additional history exists Foot Exam 07/24/2025 07/24/2024, 12/04/2023 Well Visit 65+ 07/24/2025 07/24/2024, 04/21, 05/02/2022, Additional history exists Osteoporosis Screening-Bone Density Scan 08/31/2025 08/31/2023 Fall Risk Assessment 10/03/2025 10/03/2024, 09/19/2024, 07/24/2024, Additional history exists eGFR 10/03/2025 10/03/2024, 09/21, 10/01/2024, Additional history exists Dilated Eye Exam 12/22/2025 12/22/2024, , 08/04/2024, Additional history exists DTaP/Tdap/Td Vaccine (2 - Td or Tdap) 06/22/2031 06/22/2021 Pneumococcal vaccine 65+ Completed 08/06/2020, 06/23 Zoster Vaccine Completed 02/01/2023, 11/10/2022 Hepatitis B Screening Completed 07/24/2024 Influenza Vaccine Completed 08/07/2024, , 07/19/2023, Additional history exists Procedures Procedure Name Priority Date/Time Associated Diagnosis Comments OCT, RETINA - OU - BOTH EYES Routine 12/22/2024 10:30 AM NUT CULLER Intermediate uveitis of both eyes EGFR Routine 10/03/2024 9:15 AM NUT CULLER HEMOGLOBIN A1C Routine 07/17/2024 8:05 AM CDT Type 2 diabetes mellitus without complication, without long-term current use of insulin (HCC) ALBUMIN CREATININE RATIO, URINE Routine 07/17/2024 8:05 AM CDT Type 2 diabetes mellitus without complication, without long-term current use of insulin (HCC) DEXA AXIAL SKELETON BONE DENSITY 1 OR MORE SITES Schedule Routine, Read Routine (OP Routine) 08/31/2023 12:55 PM NUT CULLER Menopause LIPID PANEL Routine 04/20/2020 12:37 PM CDT Benign hypertension Multiple-type hyperlipidemia from Last 3 Months or Most Recently Relevant to Health Maintenance Results * OCT, Retina - OU - Both Eyes (12/22/2024 10:30 AM NUT CULLER) Anatomical Region Laterality Modality Head Optical Coherenc e Tomography Narrative 12/25/2024 6:56 AM NUT CULLER OD: Few hard exudates temporal, stable from prior OS: Stable non-central CME nasal Jurgen Davis MD OPHTH TOMOGRAPHY Final Res ult * eGFR (10/03/2024 9:15 AM NUT CULLER) eGFR 63 >=60 mL/min/1. 73 m2 Comment: Interpretive Data Reference Interval Normal >/= 90 mL/min/1.73m2 Mildly decreased* 60 - 89 mL/min/1.73m2 Mildly to moderately decreased 45 - 59 mL/min/1.73m2 Moderately to severely decreased 30 - 44 mL/min/1.73m2 Severely decreased 15 - 29 mL/min/1.73m2 Kidney Failure < 15 mL/min/1.73m2 *Relative to young adult level Estimated glomerular filtration rate is determined by the 2020 CKD-EPI equation recommended by the National Kidney Foundation (A Unifying Approach to GFR Estimation: Recommendations of the NKF-ASK Task Force on Reassessing the Inclusion of Race in Diagnosing Kidney Disease, JASN 2020). The CKD-EPI equation should not be used for patients with unstable renal function and has not been validated in children and those over 70. Current interpretive data was last reviewed 2021. Blood 10/03/2024 9:15 AM NUT CULLER 10/03/2024 9:28 AM NUT CULLER Geo Khanna MD LAB BLOOD ORDERABLES Final Resu lt TAYO [facility] 1 [facility] Department [place] [address] * Albumin Creatinine Ratio, Urine (07/17/2024 8:05 AM CDT) Albumin Ur 13.7 mg/L Comment: Interpretive Data No reference range established. Current interpretive data was last revised 2019. Testing performed by: [address] [address] Creatinine Ur 121.0 mg/dL TAYO Comment: Interpretive Data No reference range established. Current interpretive data was last revised 2019. Testing performed by: [address] [address] Albumin Creatinine Ratio, Ur 11 1 - 29 mg/g TAYO Comment:Testing performed by : [address] [address] Urine 07/17/2024 8:05 AM CDT 07/17/2024 12:44 PM CDT Marni Barbosa MD LAB URINE ORDERABLES Final Result Performing Organization Address [facility] Co de Phone Number TAYO [address] Department [place] [address] * (ABNORMAL) Hemoglobin A1c (07/17/2024 8:05 AM CDT) Hgb A1C 6.8(H) 4.0 - 5.6 % Comment:Testing performed by : [address] [address] Estimated Average Glucose 148 mg/dL TAYO Comment: The ADA recommends reporting an estimated Average Glucose (eAG) with all Hemoglobin A1c results using the equation derived from a study of 507 normal and diabetic adults. Minority populations were underrepresented and children were not included. (Diabetes Care 31:0828-5272, 2008). The eAG is not equivalent to a fasting glucose. Testing performed by: [facility], [address] [place] [address], [place]., [address] Blood 07/17/2024 8:05 AM CDT 07/17/2024 12:44 PM CDT us Marni Barbosa MD LAB BLOOD ORDERABLES Final Result Performing Organization Address City/State/[facility] Co de Phone Number TAYO [address] [facility] Department [place] [address] * Dexa Axial Skeleton Bone Density 1 or 2 Site (08/31/2023 12:55 PM NUT CULLER) Anatomical Region Laterality Modality Body N/A Other 08/31/2023 1:23 PM NUT CULLER Narrative 08/31/2023 1:25 PM NUT CULLER EXAM DESCRIPTION: DEXA AXIAL SKELETON BONE DENSITY 1 OR MORE SITES REASON FOR STUDY: 82 y/o year old F with given history of: menopause Osteoporosis screening 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 REFERENCE: Bone mineral density: Normal (T-score above or = -1.0) Low bone mass (T-score between -1.0 and -2.5) replaces the previously used term osteopenia Osteoporosis (T-score = or below -2.5) Medical evaluation for secondary causes of low bone mineral density may be appropriate. FRAX is a World Health Organization validated fracture risk assessment tool that calculates a person's 10 year probability of a major osteoporosis related fracture and hip fracture. According to the National Osteoporosis Foundation guidelines, postmenopausal women and men age 50 or older with low bone mass and a 10 year probability of a major osteoporosis related fracture = or greater than 20% or a 10 year probability of a hip fracture = or greater than 3% should be considered for treatment. For further information, including treatment recommendations, please refer to the 2019 ISCD Official Positions (http://www.iscd.org) and the NOF's Clinician's Guide to Prevention and Treatment of Osteoporosis (http://www.nof.org/professionals/clinical-guidelines) THIS IS AN ELECTRONICALLY VERIFIED FINAL REPORT 08/31/2023 1:25 PM - Electronically signed by Collin Vargas M.D. 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 REFERENCE: Bone mineral density: Normal (T-score above or = -1.0) Low bone mass (T-score between -1.0 and -2.5) replaces thepreviously used term osteopenia Osteoporosis (T-score = or below -2.5) Medical evaluation for secondary causes of low bone mineral density may be appropriate. FRAX is a World Health Organization validated fracture risk assessmenttool that calculates a person's 10 year probability of a major osteoporosisrelated fracture and hip fracture. According to the National OsteoporosisFoundation guidelines, postmenopausal women and men age 50 or older with low bonemass and a 10 year probability of a major osteoporosis related fracture = or greater than 20% or a 10 year probability of a hip fracture = or greaterthan 3% should be considered for treatment. For further information, including treatment recommendations, please referto the 2019 ISCD Official Positions (http://www.iscd.org) and the NOF's Clinician's Guide to Prevention and Treatment of Osteoporosis (http://www.nof.org/professionals/clinical-guidelines) THIS IS AN ELECTRONICALLY VERIFIED FINAL REPORT 08/31/2023 1:25 PM - Electronically signed by Collin Vargas M.D. MF: HECTOR Report ID: [id number] Reading Location: [place] [address] Marni Barbosa MD IMG DXA PROCEDURES Final R esult * (ABNORMAL) Lipid panel (04/20/2020 12:37 PM CDT) [facility] Cholesterol 154 30 - 199 mg/dL TAYO [place] Comment: Interpretive Data Ages < or = 19 years Acceptable: <170 mg/dL Borderline high: 170-199 mg/dL High: >or= 200 mg/dL Ages > or = 20 years Desirable: <200 mg/dL Borderline high: 200-239 mg/dL High: >or= 240 mg/dL Literature References: 1. Expert Panel on Integrated Guidelines for Cardiovascular Health and Risk Reduction in Children and Adolescents. Pediatrics 2011;128:S213 2. NCEP Expert Panel. Circulation 2004;110:227 Current Interpretive Data was last revised on 2018. Triglycerides 360(H) <=149 mg/dL TAYO [place] Comment: Interpretive Data Ages < or = 9 years Acceptable: <75 mg/dL Borderline high: 75-99 mg/dL High: >or= 100 mg/dL Ages 10 to 20 years Acceptable: <90 mg/dL Borderline high: 90-129 mg/dL High: >or= 130 mg/dL Ages > or = 20 years Desirable: <150 mg/dL Borderline high: 150-199 mg/dL High: 200-499 mg/dL Very high: >or= 499 mg/dL Literature References: 1. Expert Panel on Integrated Guidelines for Cardiovascular Health and Risk Reduction in Children and Adolescents. Pediatrics 2011;128:S213 2. NCEP Expert Panel. Circulation 2004;110:227 Current Interpretive Data was last revised on 2018. HDL 37(L) >=40 mg/dL TAYO [place] Comment: Interpretive Data Ages < or = 19 years Acceptable: >45 mg/dL Borderline low: 40-45 mg/dL Low: <40 mg/dL Ages > or = 20 years Desirable: >or= 60 mg/dL Low: <40 mg/dL Literature References: 1. Expert Panel on Integrated Guidelines for Cardiovascular Health and Risk Reduction in Children and Adolescents. Pediatrics 2011;128:S213 2. NCEP Expert Panel. Circulation 2004;110:227 Current Interpretive Data was last revised on 2018. LDL, calculated 45 <=129 mg/dL TAYO [place] Comment: Interpretive Data Ages < or = 19 years Acceptable: <110 mg/dL Borderline high: 110-129 mg/dL High: >or= 130 mg/dL Ages > or = 20 years Optimal: <100 mg/dL Near optimal: 100-129 mg/dL Borderline high: 130-159 mg/dL High: >160 mg/dL Literature References: 1. Expert Panel on Integrated Guidelines for Cardiovascular Health and Risk Reduction in Children and Adolescents. Pediatrics 2011;128:S213 2. NCEP Expert Panel. Circulation 2004;110:227 Current Interpretive Data was last revised on 2018. Non-HDL Cholesterol 117 mg/dL TAYO [place] Comment: Interpretive Data Ages < or = 19 years Acceptable: <120 mg/dL Borderline high: 120-144 mg/dL High: >145 mg/dL Ages > or = 20 years When triglycerides are >200 mg/dL, Non-HDL cholesterol is a secondary target of therapy with treatment goals that are 30 mg/dL greater than the LDL cholesterol target. Literature References: 1. Expert Panel on Integrated Guidelines for Cardiovascular Health and Risk Reduction in Children and Adolescents. Pediatrics 2011;128:S213 2. NCEP Expert Panel. Circulation 2004;110:227 Current Interpretive Data was last revised on 2018. 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
--- OUTSIDE RECORDS SUMMARY | 2025-01-07 09:52 | XMS_ITS | Continuity of Care Document ---
Author Organization [facility] Address [address] [place] [address] [address] [place] [address] Phone Care Team Providers Care Cylinder Filler Name Role Phone Clementine Low OD Unavailable [...] Diagnoses Date Provider Providers Copied on Encounter [facility], [address] [place] [address] [address], [place], [place], [id number], tel:[phone] [place] Professional 2 week s/p YAG PC (chief complaint) Post op visit 3 Devante CALI Clementine. [facility] [address], [address], [place], [place], [address], [place]. tel:[phone] Referring Provider: Marni Barbosa MD, [address], [place], [address]. tel:[phone] [facility], [facility] [address], [place], [place], [id number], tel:[phone] [facility] [place] Professional YAG PC (chief complaint) Presence of intraocular lensOther secondary cataract, left eye Mar-3 3 Gabino Lanier. [address] [facility] [place], [address], [place]. tel:[phone] Referring Provider: Marni Barbosa MD, [address] [place], [address]. tel:[phone] Office/outpa tient Visit, Est [facility], [facility] [address], [place], [place], [address], [place] tel:[phone] SEC Ryan MYERS Professional Diabetic eye exam (chief complaint) Presence of intraocular lensType 2 diab with mild nonp rtnop without mclr edema, r eyeVitreous degeneration, right eyeOther secondary cataract, bilateralDry eye syndrome of bilateral lacrimal glandsOther secondary cataract, right eye Mar-0 3 Gabino Lanier. [address] [facility], [facility] [place], [place], [address], [place]. tel:[phone] Referring Provider: Marni Barbosa MD, [address], [place], [address]. tel:[phone] [facility], [address] [place] [address] [address], [place], [place], [id number], [place] tel:[phone] SEC [facility] Professional diabetic eye exam (chief complaint) Presence of intraocular lensType 2 diab with mild nonp rtnop without mclr edema, r eye Apr- 1 Lloyd Yannick. [address] [facility], [address], [place], [place], [address], [place]. tel:[phone] Referring Provider: Marni Barbosa MD, [address], [place], [address]. tel:[phone] [facility], [address] [place], [place] [address]st [facility] [address], [place], [place], [id number], [place] tel:[phone] SEC [facility] Professional No Information b-0 0 Grant OD Luis. [address] [place] [address], [address] [place] [address], [place], [address], [place]. tel:[phone] Referring Provider: Marni Barbosa MD, [address], [place], [address]. tel:[phone] [facility], [facility] [address], [place], [place], [id number], [place] tel:[phone] SEC [facility] Professional Complete Exam (chief complaint) Viral conjunctiviti s of both eyesAllergic conjunctiviti s of both eyesPresence of intraocular lensType 2 diabetes mellitus without complication, without long-term current use of insulin b-0 0 Grant OD Luis. [address] [place] [address], [address] [place] [address], [place], [address], [place]. tel:[phone] Referring Provider: Marni Barbosa MD, [address], [place], [address]. tel:[phone] [facility], [address] [place] [address] [address], [place], [place], [address], [place] tel:[phone] [place] Professional Burning (chief complaint) Viral conjunctiviti s of both eyesAllergic conjunctiviti s of both eyes 0 Grant Batistaic. [address] [facility], [address] Floor, [place], [address], [place]. tel:[phone] Referring Provider: Marni Barbosa MD, [address], [place], [address]. tel:[phone] [facility] Eye [facility], [address], [place], [place], [address], [place] tel:[phone] [place] Professiona l No Information 0 Gabino Lanier. [address] [facility], [address], [place], [place], [address], [place]. tel:[phone] Family History Family Member Type Diagnosis Age At Onset No Information Payers Payer name Insurance type Covered democrat ID Authoriza tion(s) No Information Social History [...]
--- OUTSIDE RECORDS SUMMARY | 2025-01-07 09:52 | XMS_ITS | Referral Summary ---
Author Organization [facility] [address] Address [address] [place] [address] Phone Care Team Providers Care Clinical Pharmacy Specialist Name Role Phone Marni Barbosa MD Primary Care Provider [phone] Jag Burch MD Unavailable [phone] Homero Ordoñez NP Unavailable [phone] Encounters Date Type Department Care Team Description 12/25/2024 2:15 PM CENTRAL SUPPLY MANAGER Office Visit [facility] at [address] [place] [address] Homero Ordoñez NP History of adenomatous polyp of colon (Primary Dx); Type 2 diabetes mellitus with other ophthalmic complication, without long-term current use of insulin (HCC); Orthostatic hypotension; Congestive heart failure, unspecified HF chronicity, unspecified heart failure type (HCC); Type 2 diabetes mellitus with chronic kidney disease, without long-term current use of insulin, unspecified CKD stage (HCC) 12/22/2024 10:30 AM CENTRAL SUPPLY MANAGER Office Visit [facility] [address] [address] Jurgen Davis MD Intermediate uveitis of both eyes (Primary Dx); 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); Type 2 diabetes mellitus with chronic kidney disease, without long-term current use of insulin, unspecified CKD stage (HCC) 11/20/2024 Telephone [facility] Ophthalmology Formerly [facility], [id number] [place] [address] Jurgen Davis MD Medical Records Request 11/13/2024 Orders Only [facility] at [address] [place] [id number] Homero Ordoñez NP Congestive heart failure, unspecified HF chronicity, unspecified heart failure type (HCC) (Primary Dx) 11/13/2024 1:30 PM CENTRAL SUPPLY MANAGER Office Visit [facility] at [address] [address] Homero Ordoñez NP History of adenomatous polyp of colon (Primary Dx); Type 2 diabetes mellitus with other ophthalmic complication, without long-term current use of insulin (HCC); Orthostatic hypotension; Type 2 diabetes mellitus with chronic kidney disease, without long-term current use of insulin, unspecified CKD stage (HCC); Dehydration; Congestive heart failure, unspecified HF chronicity, unspecified heart failure type (HCC) from Last 3 Months Allergies No known active allergies Medications turmeric root extract 500 mg capsuleIndications :Arthritis of knee Take 500 mg by mouth 3 (three) times a day 90 capsule 6 08/22/20 21 Active Additional Information Patient not taking.Reported on 12/25/2024 blood-glucose meter miscIndications:Ty pe 2 diabetes mellitus without complication, without long-term current use of insulin ([facility]) Use to test blood glucose once daily. 1 each 12/10/19 24 Active lancets (OneTouch Delica Plus Lancet) 30 gauge miscIndications:Ty pe 2 diabetes mellitus without complication, without long-term current use of insulin ([facility]) Use to check blood glucose levels once [...] 1 tablet (88 mcg total) by mouth line production cook before breakfast 90 tablet 2 07/24/20 24 Active blood glucose diagnostic (glucose blood) stripIndications:T ype 2 diabetes mellitus with stage 3b chronic kidney disease, without long-term current use of insulin ([facility]) Use to test blood glucose once daily. Dispense one touch Verio test strips 100 each 3 07/24/20 24 025 Active atorvastatin (LIPITOR) 40 mg tabletIndications: Type 2 diabetes mellitus with stage 3b chronic kidney disease, without long-term current use of insulin ([facility]),Multiple-typ e hyperlipidemia Take 1 tablet (40 mg [...] total) by mouth daily 90 tablet 3 01/23 026 Active dapagliflozin propanediol (FARXIGA) 10 mg tablet 1 tablet (10 mg total) Active traMADoL (ULTRAM) 50 mg tablet Take 1 tablet (50 mg total) by mouth every 6 (six) hours as needed for pain Active empagliflozin (JARDIANCE) 10 mg tabletIndications: Heart Failure Take 1 tablet (10 mg total) by mouth daily 30 tablet 10/03/20 025 Discontin ued(Alter devin therapy) Active Problems [...] By: Dorian Restrepo MD 09/25/2024 4:27:21 PM CENTRAL SUPPLY MANAGER Moderate pulmonary hypertension 11/15/2024 Overview (11/15/2024): Discovered during hospitalization September 2025. Requested advice from Cardiology regarding further workup. Please refer to information under HFpEF Diarrhea 09/23/2024 Diabetic macular edema of left eye 09/23/2024 Assessment & Plan (12/25/2024 7:03 AM CENTRAL SUPPLY MANAGER): Stable today. Will follow with OCT after stopping difluprednate drops Assessment & Plan (09/23/2024 9:58 PM CENTRAL SUPPLY MANAGER): Resolved today with oral prednisone taper. Will follow with OCT as she has stopped prednisone. UTI (urinary tract infection) 09/22/2024 Assessment & Plan (09/22/2024 3:51 PM CENTRAL SUPPLY MANAGER): Acute, found upon recent ER visit s/p fall on 09/18/24. Was given macrobid at first but culture came back resistant and was started on keflex on 09/20/24. Patient appears ill, afebrile, BP stable while sitting but orthostatic dropped almost 30 points. No acute abdominal findings or CVA tenderness. Consulted with Dr. Barbosa in office today, she recommends direct admit for UTI/dehydration. -accepted at [facility]. Weakness 09/22/2024 Assessment & Plan (09/22/2024 4:33 PM CENTRAL SUPPLY MANAGER): Worse in the last 1-2 weeks but uncontrollable in the last 2 days. Likely related to questionable urosepsis, see plan for UTI above. Dehydration 09/22/2024 Assessment & Plan (09/22/2024 4:39 PM CENTRAL SUPPLY MANAGER): Acute, found upon recent CMP done in ER s/p fall 4 days ago. Na 133, chloride 95, creatinine stable. Orthostatic BP dropped almost 30 points upon standing in office today. Oral mucous membranes are pale and dry, skin is pale, turgor is slow. Consulted with Dr. Barbosa in office today, she suggested direct admit, accepted by Dr. Freedman at [facility]. Orthostatic hypotension 09/22/2024 Assessment & Plan (09/22/2024 4:40 PM CENTRAL SUPPLY MANAGER): Acute, + in office today. See plan for dehydration below. Accepted for direct admit to [facility]. 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 She has had multiple adverse effects from prednisone including falls and hyperglycemia. Will plan for Ozurdex for further therapy if needed.. OK to stay off of steroid drops. Assessment & Plan (09/23/2024 9:53 PM CENTRAL SUPPLY MANAGER): She has no active inflammation today after [...] 07/24/2024 Assessment & Plan (12/25/2024 7:01 AM CENTRAL SUPPLY MANAGER): She has persistent CME that is stable and non-central OS. Observe at this point, stressed BG control. Assessment & Plan (09/23/2024 9:54 PM CENTRAL SUPPLY MANAGER): She is off of oral prednisone and [...] Arch support shoes with metatarsal pad from [employer] Hematoma and contusion 03/09/2023 [...] 06/11/2019 Assessment & Plan (12/09/2019 11:28 AM CENTRAL SUPPLY MANAGER): Blood pressure much better controlled. She brought home log and cuff with her to today's visit and blood pressure 120-140 systolic and 70-80 diastolic. We will continue present medication regimen and refills will be sent to pharmacy. Assessment & Plan (11/11/2019 11:33 AM CENTRAL SUPPLY MANAGER): Blood pressure remains elevated, but better controlled [...] weeks. Assessment & Plan (11/04/2019 5:05 PM CENTRAL SUPPLY MANAGER): With uncontrolled blood pressure upon arrival to [...] 12/04/2023 Assessment & Plan (12/09/2019 12:18 PM CENTRAL SUPPLY MANAGER): Patient reports issues of anxiety, tearfulness and depression with coping through her son's cancer and hospice care. Have discussed with patient and we will begin a low dose celexa. She will follow up in 6 weeks to determine effectiveness. She is to call with any questions or concerns. Grief support group encouraged Blurred vision 11/11/2019 08/22/2021 Assessment & Plan (11/11/2019 11:30 AM CENTRAL SUPPLY MANAGER): Patient is reporting blurred vision worse in [...] 08/22/2021 Assessment & Plan (11/11/2019 11:29 AM CENTRAL SUPPLY MANAGER): Improved s/p antibiotic eye drops. There is concern for possible allergic component as she reports occasional clear discharge and redness. She was encouraged to continue daily allergy pill and to see content production specialist for further evaluation. Assessment & Plan (11/04/2019 5:02 PM CENTRAL SUPPLY MANAGER): Patient has erythema and mucoid discharge noted in left lower conjunctiva, with concern for possible bacterial conjunctivitis. Antibiotic ophthalmic solution sent. Patient instructed to use 2 drops in left eye QID x 5 days. If symptoms worsen or persist she was instructed to call. Immunizations Immunization Administration Dates Next Due COVID-19 MRNA ([facility]) .5 M L (50 MCG) VACCINE (12 YEARS AND UP) 08/02/2023 COVID-19 mRNA ([facility]) 0.3 m L (30 mcg) vaccine (12 [...] Ba.1 01/26/2024 Tdap 06/22/2021 ZOSTER Recombinant 02/01/2023,11/10/2022 Social History Tobacco Use Types Packs/Day Years Used Date Smoking Tobacco: Never Smokeless Tobacco: Never Tobacco Cessation:Counseling Given: Not Answered Alcohol Use Standard Drinks/Week Comments Not Currently 0 (1 standard drink = 0.6 oz pur e alcohol) [facility] Utilities Answer Date Recorded In the past 12 months has Trly [employer], Liquid X, oil, or water [employer] threatened to shut off services in your [...] often do you attend chur ch or mandaeism services? Never 09/23/2024 Do you belong to any clubs o r organizations such as hoahaoism groups, unions, fraternal or athletic groups, or [...] staff should administer the PHQ-9) 1 07/24/2024 [facility] Occupat ional [facility] - Occupational Stress Questionnaire Answer Date Recorded [...] any time in the past 12 m [facility], were you homeless or living in a usp (including now)? No 09/23/2024 Personal Safety Answer Date Recorded Have you ever been in or are you currently in a harmful physical or emotional relationship or is someone making you feel afraid or unsafe? Denies 09/22/2024 Comments No Sex and Gender Information Value Date Recorded Sex Assigned at Not on file Legal Sex Female 11:43 AM CENTRAL SUPPLY MANAGER Gender Identity Not on file Sexual Orientation Not on file Occupation Industry Job Start Date Job End Date retired Not on file Not on file Not on file Last Filed Vital Signs Vital Sign Reading Time Taken Comments Blood Pressure 139/74 12/25/2024 2:18 PM CENTRAL SUPPLY MANAGER Pulse 88 12/25/2024 2:18 PM CENTRAL SUPPLY MANAGER Temperature 36.7 C (98.1 F) 10/03/2024 2:53 PM CENTRAL SUPPLY MANAGER Respiratory Rate 18 12/25/2024 2:18 PM CENTRAL SUPPLY MANAGER Oxygen Saturation 93% 10/03/2024 2:53 PM CENTRAL SUPPLY MANAGER Inhaled Oxygen Concentration - - Weight 64.9 kg (143 lb) 12/25/2024 2:18 PM CENTRAL SUPPLY MANAGER Height 160 cm (5' 3 ) 12/25/2024 2:18 PM CENTRAL SUPPLY MANAGER Body Mass Index 25.33 12/25/2024 2:18 PM CENTRAL SUPPLY MANAGER Plan of Treatment Not on file Procedures Procedure Name Priority Date/Time Associated Diagnosis Comments OCT, RETINA - OU - BOTH EYES Routine 12/22/2024 10:30 AM CENTRAL SUPPLY MANAGER Intermediate uveitis of both eyes EGFR Routine 10/03/2024 9:15 AM CENTRAL SUPPLY MANAGER HEMOGLOBIN A1C Routine 07/17/2024 8:05 AM CDT Type 2 diabetes mellitus without complication, without long-term current use of insulin (HCC) ALBUMIN CREATININE RATIO, URINE Routine 07/17/2024 8:05 AM CDT Type 2 diabetes mellitus without complication, without long-term current use of insulin (HCC) DEXA AXIAL SKELETON BONE DENSITY 1 OR MORE SITES Schedule Routine, Read Routine (OP Routine) 08/31/2023 12:55 PM CENTRAL SUPPLY MANAGER Menopause LIPID PANEL Routine 04/20/2020 12:37 PM CDT Benign hypertension Multiple-type hyperlipidemia from Last 3 Months or Most Recently Relevant to Health Maintenance Results * OCT, Retina - OU - Both Eyes (12/22/2024 10:30 AM CENTRAL SUPPLY MANAGER) Anatomical Region Laterality Modality Head Optical [facility]heren[facility] e Tomography Narrative 12/25/2024 6:56 AM CENTRAL SUPPLY MANAGER OD: Few hard exudates temporal, stable from prior OS: Stable non-central CME nasal us Jurgen Davis MD OPHTH TOMOGRAPHY Final Res ult * eGFR (10/03/2024 9:15 AM CENTRAL SUPPLY MANAGER) eGFR 63 >=60 mL/min/1. 73 m2 Comment: [...] last reviewed 2021. Blood 10/03/2024 9:15 AM CENTRAL SUPPLY MANAGER 10/03/2024 9:28 AM CENTRAL SUPPLY MANAGER us Geo Khanna MD LAB BLOOD ORDERABLES Final Resu lt [facility] Department [place] [address] * Albumin Creatinine Ratio, Urine (07/17/2024 8:05 AM CDT) Albumin Ur 13.7 mg/L Comment: Interpretive Data No reference range established. Current interpretive data was last revised 2019. Testing performed by: [address] [address] Creatinine Ur 121.0 mg/dL [facility] Comment: Interpretive Data No reference range established. Current interpretive data was last revised 2019. Testing performed by: [address] [address] Albumin Creatinine Ratio, Ur 11 1 - 29 mg/g [facility] Comment:Testing performed by : [address] [address] Urine 07/17/2024 8:05 AM CDT 07/17/2024 12:44 PM CDT us Marni Barbosa MD LAB URINE ORDERABLES Final Result Performing Organization Address [facility] de Phone Number [address] Department [place] [address] * (ABNORMAL) Hemoglobin A1c (07/17/2024 8:05 AM CDT) [facility] Hgb A1C 6.8(H) 4.0 - 5.6 % Comment:Testing performed by : [address] [address] Estimated Average Glucose 148 mg/dL [facility] Comment: The ADA recommends reporting an estimated Average Glucose (eAG) with all Hemoglobin A1c results using the equation derived from a study of 507 normal and diabetic adults. Minority populations were underrepresented and children were not included. (Diabetes Care 31:4810-0652, 2008). The eAG is not equivalent to a fasting glucose. Testing performed by: [address] [address] Blood 07/17/2024 8:05 AM CDT 07/17/2024 12:44 PM CDT us Marni Barbosa MD LAB BLOOD ORDERABLES Final Result Performing Organization Address 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 MF: HECTOR Report ID: [id number] Reading Location: [id number] Procedure Note Collin Vargas MD - 08/31/2023 EXAM DESCRIPTION: DEXA AXIAL SKELETON BONE DENSITY 1 OR MORE SITES REASON FOR STUDY: 82 y/o year old F with given history of: menopause Osteoporosis screening Post menopausal Library Science Instructor/Model: Nimb[employer] Discovery SL ([id number]/N [id number]) CLINICAL INFORMATION: Current height: 65.5 inches Maximum [...] Collin Vargas M.D. MF: HECTOR Report ID: [id number] Reading Location: [place] [address] Marni Barbosa MD IM DXA PROCEDURES Final R esult * (ABNORMAL) Lipid panel (04/20/2020 12:37 PM CDT) Cholesterol 154 30 - 199 mg/dL [facility] Comment: Interpretive Data Ages < or = [...] on 2018. Triglycerides 360(H) <=149 mg/dL [facility] Comment: Interpretive Data Ages < or = [...] on 2018. HDL 37(L) >=40 mg/dL [facility] Comment: Interpretive Data Ages < or = [...] Pediatrics 2011;128:S213 2. NCEP Expert Panel. Circulation 2003;110:227 Current Interpretive Data was last revised on 2018. 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
== END 2025-01-07 09:06 | disposition home or self-care (01) ==
LOC: CHSLAB 09:07
PROVIDERS: PCP Family Medicine; Visit Provider Family Medicine
DX: M54.50 Low back pain, unspecified (principal)
CPT/HCPCS: 72100

== ENCOUNTER 2025-02-04 08:57 | Outpatient (CLI) | payer MEDICARE, SELFPAY ==
[2025-02-04 09:14] LABS: Hematocrit 34.2 % (35.0-42.0); Hemoglobin 10.5 g/dL (11.7-13.8); Mean Corpuscular HGB Conc 30.7 g/dL (32-36); Mean Corpuscular Hemoglobin 25.6 pg (27.0-31.0); Mean Corpuscular Volume 83.4 fL (78.0-102.0); Mean Platelet Volume 10.1 fl (9.2-11.8); Platelet Count Result 276 K/mm3 (150-420); White Blood Count 5.4 K/mm3 (4.8-10.8)
--- OUTSIDE RECORDS SUMMARY | 2025-02-04 09:33 | XMS_ITS | Clinical Summary ---
Author Organization [facility] [place] [address] Address [address] [place] [address] Phone Care Team Providers Care Puncher Name Role Phone Marni Barbosa MD Primary Care Provider [phone] Jag Burch MD Unavailable [phone] Homero Ordoñez NP Unavailable [phone] Allergies No known active allergies Medications turmeric root extract 500 mg capsuleIndications :Arthritis of knee Take 500 mg by mouth 3 (three) times a day 90 capsule 6 08/22/20 21 Active Additional Information Patient not taking.Reported on 12/25/2024 blood-glucose meter miscIndications:Ty pe 2 diabetes mellitus without complication, without long-term current use of insulin ([facility]) Use to test blood glucose once daily. [...] 1 tablet (88 mcg total) by mouth retention specialist before breakfast 90 tablet 2 07/24/20 24 Active blood glucose diagnostic (glucose blood) stripIndications:T ype 2 diabetes mellitus with stage 3b chronic kidney disease, without long-term current use of insulin ([facility]) Use to test blood glucose once daily. Dispense one touch Verio test strips 100 each 3 07/24/20 24 025 Active atorvastatin (LIPITOR) 40 mg tabletIndications: Type 2 diabetes mellitus with stage 3b chronic kidney disease, without long-term current use of insulin ([facility]),Multiple-typ e hyperlipidemia Take 1 tablet (40 mg [...] (six) hours as needed for pain Active Active Problems Problem Noted Date Diagnosed Date [...] By: Dorian Restrepo MD 09/25/2024 4:27:21 PM STEAM TABLE ASSOCIATE Moderate pulmonary hypertension 11/15/2024 Overview (11/15/2024): Discovered during hospitalization September 2025. Requested advice from Cardiology regarding further workup. Please refer to information under HFpEF Diarrhea 09/23/2024 Diabetic macular edema of left eye 09/23/2024 Assessment & Plan (12/25/2024 7:03 AM STEAM TABLE ASSOCIATE): Stable today. Will follow with OCT after stopping difluprednate drops Assessment & Plan (09/23/2024 9:58 PM STEAM TABLE ASSOCIATE): Resolved today with oral prednisone taper. Will follow with OCT as she has stopped prednisone. UTI (urinary tract infection) 09/22/2024 Assessment & Plan (09/22/2024 3:51 PM STEAM TABLE ASSOCIATE): Acute, found upon recent ER visit s/p fall on 09/18/24. Was given macrobid at first but culture came back resistant and was started on keflex on 09/20/24. Patient appears ill, afebrile, BP stable while sitting but orthostatic dropped almost 30 points. No acute abdominal findings or CVA tenderness. Consulted with Dr. Barbosa in office today, she recommends direct admit for UTI/dehydration. -accepted at [facility]. Weakness 09/22/2024 Assessment & Plan (09/22/2024 4:33 PM STEAM TABLE ASSOCIATE): Worse in the last 1-2 weeks but uncontrollable in the last 2 days. Likely related to questionable urosepsis, see plan for UTI above. Dehydration 09/22/2024 Assessment & Plan (09/22/2024 4:39 PM STEAM TABLE ASSOCIATE): Acute, found upon recent CMP done in ER s/p fall 4 days ago. Na 133, chloride 95, creatinine stable. Orthostatic BP dropped almost 30 points upon standing in office today. Oral mucous membranes are pale and dry, skin is pale, turgor is slow. Consulted with Dr. Barbosa in office today, she suggested direct admit, accepted by Dr. Freedman at [facility]. Orthostatic hypotension 09/22/2024 Assessment & Plan (09/22/2024 4:40 PM STEAM TABLE ASSOCIATE): Acute, + in office today. See plan for dehydration below. Accepted for direct admit to [facility]. 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 She has had multiple adverse effects from prednisone including falls and hyperglycemia. Will plan for Ozurdex for further therapy if needed.. OK to stay off of steroid drops. Assessment & Plan (09/23/2024 9:53 PM STEAM TABLE ASSOCIATE): She has no active inflammation today after [...] 07/24/2024 Assessment & Plan (12/25/2024 7:01 AM STEAM TABLE ASSOCIATE): She has persistent CME that is stable and non-central OS. Observe at this point, stressed BG control. Assessment & Plan (09/23/2024 9:54 PM STEAM TABLE ASSOCIATE): She is off of oral prednisone and [...] Arch support shoes with metatarsal pad from [employer] Hematoma and contusion 03/09/2023 [...] 06/11/2019 Assessment & Plan (12/09/2019 11:28 AM STEAM TABLE ASSOCIATE): Blood pressure much better controlled. She brought home log and cuff with her to today's visit and blood pressure 120-140 systolic and 70-80 diastolic. We will continue present medication regimen and refills will be sent to pharmacy. Assessment & Plan (11/11/2019 11:33 AM STEAM TABLE ASSOCIATE): Blood pressure remains elevated, but better controlled [...] weeks. Assessment & Plan (11/04/2019 5:05 PM STEAM TABLE ASSOCIATE): With uncontrolled blood pressure upon arrival to [...] 12/04/2023 Assessment & Plan (12/09/2019 12:18 PM STEAM TABLE ASSOCIATE): Patient reports issues of anxiety, tearfulness and depression with coping through her son's cancer and hospice care. Have discussed with patient and we will begin a low dose celexa. She will follow up in 6 weeks to determine effectiveness. She is to call with any questions or concerns. Grief support group encouraged Blurred vision 11/11/2019 08/22/2021 Assessment & Plan (11/11/2019 11:30 AM STEAM TABLE ASSOCIATE): Patient is reporting blurred vision worse in [...] 08/22/2021 Assessment & Plan (11/11/2019 11:29 AM STEAM TABLE ASSOCIATE): Improved s/p antibiotic eye drops. There is concern for possible allergic component as she reports occasional clear discharge and redness. She was encouraged to continue daily allergy pill and to see drywall stripper helper for further evaluation. Assessment & Plan (11/04/2019 5:02 PM STEAM TABLE ASSOCIATE): Patient has erythema and mucoid discharge noted in left lower conjunctiva, with concern for possible bacterial conjunctivitis. Antibiotic ophthalmic solution sent. Patient instructed to use 2 drops in left eye QID x 5 days. If symptoms worsen or persist she was instructed to call. Encounters Date Type Department Care Team Description 12/25/2024 2:15 PM STEAM TABLE ASSOCIATE Office Visit [facility] at [address] [address] Homero Ordoñez NP History of adenomatous polyp of colon (Primary Dx); Type 2 diabetes mellitus with other ophthalmic complication, without long-term current use of insulin (HCC); Orthostatic hypotension; Congestive heart failure, unspecified HF chronicity, unspecified heart failure type (HCC); Type 2 diabetes mellitus with chronic kidney disease, without long-term current use of insulin, unspecified CKD stage (HCC) 12/22/2024 10:30 AM STEAM TABLE ASSOCIATE Office Visit [facility] [address] [phone] Jurgen Davis MD Intermediate uveitis of both eyes (Primary Dx); 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); Type 2 diabetes mellitus with chronic kidney disease, without long-term current use of insulin, unspecified CKD stage (HCC) 11/20/2024 Telephone [facility] [address] [place] [address] Jurgen Davis MD Medical Records Request 11/13/2024 1:30 PM STEAM TABLE ASSOCIATE Office Visit [place] [facility] at [address] [phone] Homero Ordoñez NP History of adenomatous polyp of colon (Primary Dx); Type 2 diabetes mellitus with other ophthalmic complication, without long-term current use of insulin (HCC); Orthostatic hypotension; Type 2 diabetes mellitus with chronic kidney disease, without long-term current use of insulin, unspecified CKD stage (HCC); Dehydration; Congestive heart failure, unspecified HF chronicity, unspecified heart failure type (HCC) 11/13/2024 Orders Only [facility] at [address] [address] Homero Ordoñez NP Congestive heart failure, unspecified [...] COLONOSCOPY 10/22/2016 - 10/21/2017 Single polyp in [place] Medical History Medical History Date Comments Diabetes [...] drink = 0.6 oz pur e alcohol) [facility] Utilities Answer Date Recorded In the past 12 months has [email or web address], gas, oil, or water [employer] threatened to shut off services in your [...] often do you attend chur ch or faith services? Never 09/23/2024 Do you belong to any clubs o r organizations such as religious groups, unions, fraternal or athletic groups, or [...] staff should administer the PHQ-9) 1 07/24/2024 [facility] - Occupational Stress Questionnaire Answer Date [...] any time in the past 12 m [facility], were you homeless or living in a prison (including now)? No 09/23/2024 Personal Safety Answer Date Recorded Have you ever been in or are you currently in a harmful physical or emotional relationship or is someone making you feel afraid or unsafe? Denies 09/22/2024 Comments No Sex and Gender Information Value Date Recorded Sex Assigned at Not on file Legal Sex Female 11:43 AM STEAM TABLE ASSOCIATE Gender Identity Not on file Sexual Orientation [...] Comments Blood Pressure 139/74 12/25/2024 2:18 PM STEAM TABLE ASSOCIATE Pulse 88 12/25/2024 2:18 PM STEAM TABLE ASSOCIATE Temperature 36.7 C (98.1 F) 10/03/2024 2:53 PM STEAM TABLE ASSOCIATE Respiratory Rate 18 12/25/2024 2:18 PM STEAM TABLE ASSOCIATE Oxygen Saturation 93% 10/03/2024 2:53 PM STEAM TABLE ASSOCIATE Inhaled Oxygen Concentration - - Weight 64.9 kg (143 lb) 12/25/2024 2:18 PM STEAM TABLE ASSOCIATE Height 160 cm (5' 3 ) 12/25/2024 2:18 PM STEAM TABLE ASSOCIATE Body Mass Index 25.33 12/25/2024 2:18 PM STEAM TABLE ASSOCIATE Plan of Treatment Health Maintenance Due Date Last Done Comments Lipid Panel 04/20/2021 04/20/2020 Hemoglobin A1C 01/14/2025 07/17/2024, 01/0 05/2024, 04/26/2023, Additional history exists Covid-19 Vaccine (9 2023- 5 season) 2025 08/07/2024, 01/26/2024, 01/26/2024, Additional [...] - BOTH EYES Routine 12/22/2024 10:30 AM STEAM TABLE ASSOCIATE Intermediate uveitis of both eyes EGFR Routine 10/03/2024 9:15 AM STEAM TABLE ASSOCIATE HEMOGLOBIN A1C Routine 07/17/2024 8:05 AM CDT Type 2 diabetes mellitus without complication, without long-term current use of insulin (HCC) ALBUMIN CREATININE RATIO, URINE Routine 07/17/2024 8:05 AM CDT Type 2 diabetes mellitus without complication, without long-term current use of insulin (HCC) DEXA AXIAL SKELETON BONE DENSITY 1 OR MORE SITES Schedule Routine, Read Routine (OP Routine) 08/31/2023 12:55 PM STEAM TABLE ASSOCIATE Menopause LIPID PANEL Routine 04/20/2020 12:37 PM CDT Benign hypertension Multiple-type hyperlipidemia from Last 3 Months or Most Recently Relevant to Health Maintenance Results * OCT, Retina - OU - Both Eyes (12/22/2024 10:30 AM STEAM TABLE ASSOCIATE) Anatomical Region Laterality Modality Head Optical Coherenc e Tomography Narrative 12/25/2024 6:56 AM STEAM TABLE ASSOCIATE OD: Few hard exudates temporal, stable from prior OS: Stable non-central CME nasal us Jurgen Davis MD OPHTH TOMOGRAPHY Final Res ult * eGFR (10/03/2024 9:15 AM STEAM TABLE ASSOCIATE) eGFR 63 >=60 mL/min/1. 73 m2 Comment: [...] of Race in Diagnosing Kidney Disease, JASN 202). The CKD-EPI equation should not be used for patients with unstable renal function and has not been validated in children and those over 70. Current interpretive data was last reviewed 2021. Blood 10/03/2024 9:15 AM STEAM TABLE ASSOCIATE 10/03/2024 9:28 AM STEAM TABLE ASSOCIATE us Geo Khanna MD LAB BLOOD ORDERABLES Final Resu lt TAYO [facility] Department [place] [address] * Albumin Creatinine Ratio, Urine (07/17/2024 8:05 AM CDT) Albumin Ur 13.7 mg/L Comment: Interpretive Data No reference range established. Current interpretive data was last revised 2019. Testing performed by: [address] [address] Creatinine Ur 121.0 mg/dL TAYO Comment: Interpretive Data No reference range established. Current interpretive data was last revised 2019. Testing performed by: [address] [address] Albumin Creatinine Ratio, Ur 11 1 - 29 mg/g TAYO Comment:Testing performed by : [address] [address] Urine 07/17/2024 8:05 AM CDT 07/17/2024 12:44 PM CDT Marni Barbosa MD LAB URINE ORDERABLES Final Result Performing Organization Address [facility] Co de Phone Number TAYO [address] Department [place] [address] * (ABNORMAL) Hemoglobin A1c (07/17/2024 8:05 AM CDT) Hgb A1C 6.8(H) 4.0 - 5.6 % Comment:Testing performed by : [address] [address] Estimated Average Glucose 148 mg/dL ATYO Comment: The ADA recommends reporting an estimated Average Glucose (eAG) with all Hemoglobin A1c results using the equation derived from a study of 507 normal and diabetic adults. Minority populations were underrepresented and children were not included. (Diabetes Care 31:3634-7111, 2008). The eAG is not equivalent to a fasting glucose. Testing performed by: [address] [address] Blood 07/17/2024 8:05 AM CDT 07/17/2024 12:44 PM CDT us Marni Barbosa MD LAB [place] [address] [place] Department [place] [address] * Dexa Axial Skeleton Bone Density 1 or 2 Site (08/31/2023 12:55 PM STEAM TABLE ASSOCIATE) Anatomical Region Laterality Modality Body N/A Other 08/31/2023 1:23 PM STEAM TABLE ASSOCIATE Narrative 08/31/2023 1:25 PM STEAM TABLE ASSOCIATE EXAM DESCRIPTION: DEXA AXIAL SKELETON BONE DENSITY 1 OR MORE SITES REASON FOR STUDY: 82 y/o year old F with given history of: menopause Osteoporosis screening Post menopausal Drip Box Tender/Model: [employer] Discovery SL (S/N [id number]) CLINICAL INFORMATION: Current height: 65.5 inches Maximum [...] Collin Vargas M.D. MF: HECTOR Report ID: [id number] Reading Location: [address] Note Collin Vargas MD - 08/31/2023 EXAM DESCRIPTION: DEXA AXIAL SKELETON BONE DENSITY 1 OR MORE SITES REASON FOR STUDY: 82 y/o year old F with given history of: menopause Osteoporosis screening Post menopausal Drip Box Tender/Model: [employer] SL (S/N [id number]) CLINICAL INFORMATION: Current height: 65.5 inches Maximum [...] Collin Vargas M.D. MF: HECTOR Report ID: [id number] Reading Location: [place] [address] Marni Barbosa MD IMG DXA PROCEDURES Final [...] NP LAB BLOOD [place] [address] [place] Department of Laboratories [place], [place] [id number] from Last 3 Months or Most Recently Relevant to Health Maintenance Insurance MEDICARE ANDalyze MEDICARE ANDalyze MEDICARE ANDalyze Advance Directives For more information, please contact: [phone] Documents on File Type Date Recorded Patient Circulator Expl anation ADVANCE DIRECTIVE 04/30/2019 DNR ADVANCE DIRECTIVE 04/30/2019 POWER OF A [employer] * Full Code (Latest Code Status on File) Date Activated Date Inactivated Comments 09/22/2024 3:49 PM 10/03/2024 8:12 PM Care Teams Puncher Relationship Specialty Start Date End Date Marni Barbosa MD PCP - General Internal Medicine 03/18/19 Jag Burch MD [address] [place] [address] Ophthalmology 07/24/24 Homero Ordoñez NP [address] [place] [address] Nurse Practitioner Internal Medicine 11/13/24
--- OUTSIDE RECORDS SUMMARY | 2025-02-04 09:33 | XMS_ITS | Continuity of Care Document ---
Author Organization [facility] Address [address] [place] [address] [address] [place] [address] Phone Care Team Providers Care Payroll Accounting Specialist Name Role Phone Clementine Low OD Unavailable [...] Diagnoses Date Provider Providers Copied on Encounter [facility], [address] [place] [address] [email or web address], [place], [place], [id number], tel:[phone] [place] Professional 2 week s/p YAG PC (chief complaint) Post op visit 3 Devante CALI Clementine. [facility] [address], [address], [place], [place], [id number], [place]. tel:[phone] Referring Provider: Marni Barbosa MD, [address], [place], [address]. tel:[phone] [facility], [facility] [address], [place], [place], [id number], tel:[phone] [place] Professional YAG PC (chief complaint) Presence of intraocular lensOther secondary cataract, left eye Mar-3 3 Gabino Lanier. [address] [facility], [facility] [place] [address], [place]. tel:[phone] Referring Provider: Marni Barbosa MD, [address] [place], [address]. tel:[phone] Office/outpa tient Visit, Est [facility], [facility] [address], [place], [place], [id number], [place] tel:[phone] SEC Ryan MYERS Professional Diabetic eye exam (chief complaint) Presence of intraocular lensType 2 diab with mild nonp rtnop without mclr edema, r eyeVitreous degeneration, right eyeOther secondary cataract, bilateralDry eye syndrome of bilateral lacrimal glandsOther secondary cataract, right eye Mar-0 3 Gabino Lanier. [address] [facility], [facility] [place], [address], [place]. tel:[phone] Referring Provider: Marni Barbosa MD, [address], [place], [address]. tel:[phone] [facility], [address] [place] [address] [address], [place], [place], [id number], [place] tel:[phone] [facility] Professional diabetic eye exam (chief complaint) Presence of intraocular lensType 2 diab with mild nonp rtnop without mclr edema, r eye Apr- 1 Lloyd Yannick. [address] [facility], [address], [place], [place], [address], [place]. tel:[phone] Referring Provider: Marni Barbosa MD, [address], [place], [address]. tel:[phone] [facility], [address] [place], [place] [address] [address], [place], [place], [id number], [place] tel:[phone] [facility] Professional No Information b-0 0 Grant OD Luis. [address] [place] [address], [address] [place] [address], [place], [address], [place]. tel:[phone] Referring Provider: Marni Barbosa MD, [address], [place], [address]. tel:[phone] [facility], [facility] D[address]Appro[address], [place], [place], [address], [place] tel:[phone] [facility] Professional Complete Exam (chief complaint) Viral conjunctiviti s of both eyesAllergic conjunctiviti s of both eyesPresence of intraocular lensType 2 diabetes mellitus without complication, without long-term current use of insulin b-0 0 Grant OD Luis. [address] [place] [address], [address] [place] [address], [place], [address], [place]. tel:[phone] Referring Provider: Marni Barbosa MD, [address], [place], [address]. tel:[phone] [facility], [address] [place] [address] [address], [place], [place], [address], [place] tel:[phone] [place] Professional Burning (chief complaint) Viral conjunctiviti s of both eyesAllergic conjunctiviti s of both eyes 0 Grant Batistaic. [address] [facility], [address]th Floor, [place], [address], [place]. tel:[phone] Referring Provider: Marni Barbosa MD, [address], [place], [address]. tel:[phone] [facility], [address], [place], [place], [address], [place] tel:[phone] [place] Professiona l No Information 0 Gabino Lanier. [address] [facility], [address], [place], [place], [address], [place]. tel:[phone] Family History Family Member Type Diagnosis Age [...]
--- OUTSIDE RECORDS SUMMARY | 2025-02-04 09:33 | XMS_ITS | Referral Summary ---
Author Organization [facility] [address] [place] [address] Phone Care Team Providers Care Cmo & President Name Role Phone Marni Barbosa MD Primary Care Provider [phone] Jag Burch MD Unavailable [phone] Homero Ordoñez NP Unavailable [phone] Encounters Date Type Department Care Team Description 12/25/2024 2:15 PM MEDIA THEORIST AND AUTHOR OF Office Visit [facility] at [address] [place] [address] Homero Ordoñez NP History of adenomatous polyp of colon (Primary Dx); Type 2 diabetes mellitus with other ophthalmic complication, without long-term current use of insulin (HCC); Orthostatic hypotension; Congestive heart failure, unspecified HF chronicity, unspecified heart failure type (HCC); Type 2 diabetes mellitus with chronic kidney disease, without long-term current use of insulin, unspecified CKD stage (HCC) 12/22/2024 10:30 AM MEDIA THEORIST AND AUTHOR OF Office Visit [facility] [address] [address] Jurgen Davis MD Intermediate uveitis of both eyes (Primary Dx); 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); Type 2 diabetes mellitus with chronic kidney disease, without long-term current use of insulin, unspecified CKD stage (HCC) 11/20/2024 Telephone [facility] [place] [address] Jurgen Davis MD Medical Records Request 11/13/2024 Orders Only [place] [place] [employer] [facility] at [address] [place] [address] Homero Ordoñez NP Congestive heart failure, unspecified HF chronicity, unspecified heart failure type (HCC) (Primary Dx) 11/13/2024 1:30 PM MEDIA THEORIST AND AUTHOR OF Office Visit [place] [facility] at [address] [address] Homero Ordoñez NP History of [...] without long-term current use of insulin ([facility]) Use to test blood glucose once daily. 1 each 12/10/19 24 Active lancets (OneTouch Delica Plus Lancet) 30 gauge miscIndications:Ty pe 2 diabetes mellitus without complication, without long-term current use of insulin ([facility]) Use to check blood glucose levels once [...] 1 tablet (88 mcg total) by mouth scrap separator before breakfast 90 tablet 2 07/24/20 24 Active blood glucose diagnostic (glucose blood) stripIndications:T ype 2 diabetes mellitus with stage 3b chronic kidney disease, without long-term current use of insulin ([facility]) Use to test blood glucose once daily. Dispense one touch Verio test strips 100 each 3 07/24/20 24 025 Active atorvastatin (LIPITOR) 40 mg tabletIndications: Type 2 diabetes mellitus with stage 3b chronic kidney disease, without long-term current use of insulin ([facility]),Multiple-typ e hyperlipidemia Take 1 tablet (40 [...] By: Dorian Restrepo MD 09/25/2024 4:27:21 PM MEDIA THEORIST AND AUTHOR OF Moderate pulmonary hypertension 11/15/2024 Overview (11/15/2024): Discovered during hospitalization September 2025. Requested advice from Cardiology regarding further workup. Please refer to information under HFpEF Diarrhea 09/23/2024 Diabetic macular edema of left eye 09/23/2024 Assessment & Plan (12/25/2024 7:03 AM MEDIA THEORIST AND AUTHOR OF): Stable today. Will follow with OCT after stopping difluprednate drops Assessment & Plan (09/23/2024 9:58 PM MEDIA THEORIST AND AUTHOR OF): Resolved today with oral prednisone taper. Will follow with OCT as she has stopped prednisone. UTI (urinary tract infection) 09/22/2024 Assessment & Plan (09/22/2024 3:51 PM MEDIA THEORIST AND AUTHOR OF): Acute, found upon recent ER visit s/p fall on 09/18/24. Was given macrobid at first but culture came back resistant and was started on keflex on 09/20/24. Patient appears ill, afebrile, BP stable while sitting but orthostatic dropped almost 30 points. No acute abdominal findings or CVA tenderness. Consulted with Dr. Barbosa in office today, she recommends direct admit for UTI/dehydration. -accepted at [facility]. Weakness 09/22/2024 Assessment & Plan (09/22/2024 4:33 PM MEDIA THEORIST AND AUTHOR OF): Worse in the last 1-2 weeks but uncontrollable in the last 2 days. Likely related to questionable urosepsis, see plan for UTI above. Dehydration 09/22/2024 Assessment & Plan (09/22/2024 4:39 PM MEDIA THEORIST AND AUTHOR OF): Acute, found upon recent CMP done in ER s/p fall 4 days ago. Na 133, chloride 95, creatinine stable. Orthostatic BP dropped almost 30 points upon standing in office today. Oral mucous membranes are pale and dry, skin is pale, turgor is slow. Consulted with Dr. Barbosa in office today, she suggested direct admit, accepted by Dr. Freedman at [facility]. Orthostatic hypotension 09/22/2024 Assessment & Plan (09/22/2024 4:40 PM MEDIA THEORIST AND AUTHOR OF): Acute, + in office today. See plan for dehydration below. Accepted for direct admit to [facility]. Intermediate uveitis of both eyes 08/07/2024 Overview (08/19/2024): Diagnosis: Intermediate uveitis both eyes Complications: None Last active: 08/07/24 ou Systemic associations: None Labs: Positive: None Negative/normal: T pallidum antibody and CXR Care Team: Other notes: Referred by Tawanda Fournier Assessment & Plan (12/25/2024 7:02 AM MEDIA THEORIST AND AUTHOR OF): She has no active inflammation today. She has had multiple adverse effects from prednisone including falls and hyperglycemia. Will plan for Ozurdex for further therapy if needed.. OK to stay off of steroid drops. Assessment & Plan (09/23/2024 9:53 PM MEDIA THEORIST AND AUTHOR OF): She has no active inflammation today after [...] 07/24/2024 Assessment & Plan (12/25/2024 7:01 AM MEDIA THEORIST AND AUTHOR OF): She has persistent CME that is stable and non-central OS. Observe at this point, stressed BG control. Assessment & Plan (09/23/2024 9:54 PM MEDIA THEORIST AND AUTHOR OF): She is off of oral prednisone and [...] Arch support shoes with metatarsal pad from [employer] Hematoma and contusion 03/09/2023 [...] 06/11/2019 Assessment & Plan (12/09/2019 11:28 AM MEDIA THEORIST AND AUTHOR OF): Blood pressure much better controlled. She brought home log and cuff with her to today's visit and blood pressure 120-140 systolic and 70-80 diastolic. We will continue present medication regimen and refills will be sent to pharmacy. Assessment & Plan (11/11/2019 11:33 AM MEDIA THEORIST AND AUTHOR OF): Blood pressure remains elevated, but better controlled [...] weeks. Assessment & Plan (11/04/2019 5:05 PM MEDIA THEORIST AND AUTHOR OF): With uncontrolled blood pressure upon arrival to [...] 12/04/2023 Assessment & Plan (12/09/2019 12:18 PM MEDIA THEORIST AND AUTHOR OF): Patient reports issues of anxiety, tearfulness and depression with coping through her son's cancer and hospice care. Have discussed with patient and we will begin a low dose celexa. She will follow up in 6 weeks to determine effectiveness. She is to call with any questions or concerns. Grief support group encouraged Blurred vision 11/11/2019 08/22/2021 Assessment & Plan (11/11/2019 11:30 AM MEDIA THEORIST AND AUTHOR OF): Patient is reporting blurred vision worse in [...] 08/22/2021 Assessment & Plan (11/11/2019 11:29 AM MEDIA THEORIST AND AUTHOR OF): Improved s/p antibiotic eye drops. There is concern for possible allergic component as she reports occasional clear discharge and redness. She was encouraged to continue daily allergy pill and to see fare register repairer for further evaluation. Assessment & Plan (11/04/2019 5:02 PM MEDIA THEORIST AND AUTHOR OF): Patient has erythema and mucoid discharge noted [...] drink = 0.6 oz pur e alcohol) [facility] [employer] Answer Date Recorded In the past 12 months has [employer], gas, oil, or water [employer] threatened to shut off services in your [...] often do you attend chur ch or sabianist services? Never 09/23/2024 Do you belong to any clubs o r organizations such as amish groups, unions, fraternal or athletic groups, or [...] staff should administer the PHQ-9) 1 07/24/2024 [facility]at [facility] - Occupational Stress Questionnaire Answer Date Recorded [...] any time in the past 12 m [facility], were you homeless or living in a snf (including now)? No 09/23/2024 Personal Safety Answer Date Recorded Have you ever been in or are you currently in a harmful physical or emotional relationship or is someone making you feel afraid or unsafe? Denies 09/22/2024 Comments No Sex and Gender Information Value Date Recorded Sex Assigned at Not on file Legal Sex Female 11:43 AM MEDIA THEORIST AND AUTHOR OF Gender Identity Not on file Sexual Orientation Not on file Occupation Industry Job Start Date Job End Date retired Not on file Not on file Not on file Last Filed Vital Signs Vital Sign Reading Time Taken Comments Blood Pressure 139/74 12/25/2024 2:18 PM MEDIA THEORIST AND AUTHOR OF Pulse 88 12/25/2024 2:18 PM MEDIA THEORIST AND AUTHOR OF Temperature 36.7 C (98.1 F) 10/03/2024 2:53 PM MEDIA THEORIST AND AUTHOR OF Respiratory Rate 18 12/25/2024 2:18 PM MEDIA THEORIST AND AUTHOR OF Oxygen Saturation 93% 10/03/2024 2:53 PM MEDIA THEORIST AND AUTHOR OF Inhaled Oxygen Concentration - - Weight 64.9 kg (143 lb) 12/25/2024 2:18 PM MEDIA THEORIST AND AUTHOR OF Height 160 cm (5' 3 ) 12/25/2024 2:18 PM MEDIA THEORIST AND AUTHOR OF Body Mass Index 25.33 12/25/2024 2:18 PM MEDIA THEORIST AND AUTHOR OF Plan of Treatment Not on file Procedures Procedure Name Priority Date/Time Associated Diagnosis Comments OCT, RETINA - OU - BOTH EYES Routine 12/22/2024 10:30 AM MEDIA THEORIST AND AUTHOR OF Intermediate uveitis of both eyes EGFR Routine 10/03/2024 9:15 AM MEDIA THEORIST AND AUTHOR OF HEMOGLOBIN A1C Routine 07/17/2024 8:05 AM CDT Type 2 diabetes mellitus without complication, without long-term current use of insulin (HCC) ALBUMIN CREATININE RATIO, URINE Routine 07/17/2024 8:05 AM CDT Type 2 diabetes mellitus without complication, without long-term current use of insulin (HCC) DEXA AXIAL SKELETON BONE DENSITY 1 OR MORE SITES Schedule Routine, Read Routine (OP Routine) 08/31/2023 12:55 PM MEDIA THEORIST AND AUTHOR OF Menopause LIPID PANEL Routine 04/20/2020 12:37 PM CDT Benign hypertension Multiple-type hyperlipidemia from Last 3 Months or Most Recently Relevant to Health Maintenance Results * OCT, Retina - OU - Both Eyes (12/22/2024 10:30 AM MEDIA THEORIST AND AUTHOR OF) Anatomical Region Laterality Modality Head Optical Coheren[facility] e Tomography Narrative 12/25/2024 6:56 AM MEDIA THEORIST AND AUTHOR OF OD: Few hard exudates temporal, stable from prior OS: Stable non-central CME nasal us Jurgen Davis MD OPHTH TOMOGRAPHY Final Res ult * eGFR (10/03/2024 9:15 AM MEDIA THEORIST AND AUTHOR OF) eGFR 63 >=60 mL/min/1. 73 m2 Comment: [...] last reviewed 2021. Blood 10/03/2024 9:15 AM MEDIA THEORIST AND AUTHOR OF 10/03/2024 9:28 AM MEDIA THEORIST AND AUTHOR OF us Geo Khanna MD LAB BLOOD ORDERABLES Final Resu lt [facility]) 0 [facility] [place] [address] * Albumin Creatinine Ratio, Urine (07/17/2024 8:05 AM CDT) Albumin Ur 13.7 mg/L Comment: Interpretive Data No reference range established. Current interpretive data was last revised 2019. Testing performed by: [facility], [address] [place]., [address] Creatinine Ur 121.0 mg/dL [facility] Comment: Interpretive Data No reference range established. Current interpretive data was last revised 2019. Testing performed by: [address] [address] Albumin Creatinine Ratio, Ur 11 1 - 29 mg/g TAYO Comment:Testing performed by : [address] [address] Urine 07/17/2024 8:05 AM CDT 07/17/2024 12:44 PM CDT us Marni Barbosa MD LAB URINE ORDERABLES Final Result Performing Organization Address City/[facility]/ZIP Co de Phone Number TAYO [address] [employer] [place] [address] * (ABNORMAL) Hemoglobin A1c (07/17/2024 8:05 AM CDT) Hgb A1C 6.8(H) 4.0 - 5.6 % Comment:Testing performed by : [address] [address] Estimated Average Glucose 148 mg/dL TAYO Comment: The ADA recommends reporting an estimated Average Glucose (eAG) with all Hemoglobin A1c results using the equation derived from a study of 507 normal and diabetic adults. Minority populations were underrepresented and children were not included. (Diabetes Care 31:4732-4807, 2008). The eAG is not equivalent to a fasting glucose. Testing performed by: [address] [address] Blood 07/17/2024 8:05 AM CDT 07/17/2024 12:44 PM CDT us Marni Barbosa MD LAB BLOOD ORDERABLES Final Result Performing Organization Address City/[facility]/ZIP Co de Phone Number [facility] [address] [place] [address] * Dexa Axial Skeleton Bone Density 1 or 2 Site (08/31/2023 12:55 PM MEDIA THEORIST AND AUTHOR OF) Anatomical Region Laterality Modality Body N/A Other 08/31/2023 1:23 PM MEDIA THEORIST AND AUTHOR OF Narrative 08/31/2023 1:25 PM MEDIA THEORIST AND AUTHOR OF EXAM DESCRIPTION: DEXA AXIAL SKELETON BONE DENSITY 1 OR MORE SITES REASON FOR STUDY: 82 y/o year old F with given history of: menopause Osteoporosis screening 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 MF: MF Report ID: [id number] Reading Location: [place] [address] Marni Barbosa MD IMG DXA PROCEDURES Final [...] LAB BLOOD ORDERABL ES Final Result TAYO [address] [address] Department [place] [address] from Last 3 Months or Most Recently Relevant to Health Maintenance Insurance MEDICARE [employer] [facility]IC[facility] [place] MEDICARE [employer] Advance Directives For more information, please contact: [phone] Documents on File Type Date Recorded Patient [employer]ation ADVANCE DIRECTIVE 04/30/2019 DNR ADVANCE DIRECTIVE 04/30/2019 POWER OF A [employer] * Full Code (Latest Code Status on File) Date Activated Date Inactivated Comments 09/22/2024 3:49 PM 10/03/2024 8:12 PM Care Teams Cmo & President Relationship Specialty Start Date End Date Marni Barbosa MD PCP - General Internal Medicine 03/18/19 Jag Burch MD [address] [place] [address] Ophthalmology 07/24/24 Homero Ordoñez NP [address] [place] [address] Nurse Practitioner Internal Medicine 11/13/24
[2025-02-04 09:40] LABS: Hemoglobin A1C 8.6 % (<5.7)
[2025-02-04 09:56] LABS: Anion Gap 9 mmol/L (4-12); Blood Urea Nitrogen 66 mg/dL (7-18); Calcium 9.6 mg/dL (8.5-10.1); Carbon Dioxide 28 mmol/L (21-32); Chloride 101 mmol/L (98-108); Estimated Glomerular Filt Rate 23; Glucose 267 mg/dL (70-99); Osmolality Calculated 314 mOsm/kg (285-295); Potassium 5.2 mmol/L (3.5-5.1); Sodium 138 mmol/L (136-145); Thyroid Stimulating Hormone 0.03 uIU/mL (0.36-3.74)
== END 2025-02-04 08:58 | disposition home or self-care (01) ==
PROVIDERS: PCP Family Medicine; Visit Provider Family Medicine
DX: E03.9 Hypothyroidism, unspecified (principal); E11.9 Type 2 diabetes mellitus without complications; I50.9 Heart failure, unspecified
CPT/HCPCS: 36415; 80048; 83036; 84443; 85027

== ENCOUNTER 2025-02-07 09:15 | Outpatient (CLI) | payer MEDICARE, SELFPAY ==
--- OUTSIDE RECORDS SUMMARY | 2025-02-07 09:20 | XMS_ITS | Referral Summary ---
Author Organization [facility] [address] Address [address] [place] [address] Phone Care Team Providers Care Waitstaff Captain Name Role Phone Marni Barbosa MD Primary Care Provider [phone] Jag Burch MD Unavailable [phone] Homero Ordoñez NP Unavailable [phone] Encounters Date Type Department Care Team Description 12/25/2024 2:15 PM CUSTOMER SUPPORT PROFESSIONAL Office Visit [facility] at [address] [place] [address] Homero Ordoñez NP History of adenomatous polyp of colon (Primary Dx); Type 2 diabetes mellitus with other ophthalmic complication, without long-term current use of insulin (HCC); Orthostatic hypotension; Congestive heart failure, unspecified HF chronicity, unspecified heart failure type (HCC); Type 2 diabetes mellitus with chronic kidney disease, without long-term current use of insulin, unspecified CKD stage (HCC) 12/22/2024 10:30 AM CUSTOMER SUPPORT PROFESSIONAL Office Visit [facility] [address] [address] Jurgen Davis MD Intermediate uveitis of both eyes (Primary Dx); 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); Type 2 diabetes mellitus with chronic kidney disease, without long-term current use of insulin, unspecified CKD stage (HCC) 11/20/2024 Telephone [facility] [place] [address] Jurgen Davis MD Medical Records Request 11/13/2024 Orders Only [facility] at [address] [place] [address] Homero Ordoñez NP Congestive heart failure, unspecified HF chronicity, unspecified heart failure type (HCC) (Primary Dx) 11/13/2024 1:30 PM CUSTOMER SUPPORT PROFESSIONAL Office Visit [facility] at [address] [address] Homero Ordoñez NP History of [...] complication, without long-term current use of insulin ([facility]) Use to test blood glucose once daily. 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 Dispense one touch Verio test strips 100 each 3 07/24/20 24 025 Active atorvastatin (LIPITOR) 40 mg tabletIndications: Type 2 diabetes mellitus with stage 3b chronic kidney disease, without long-term current use of insulin ([facility]),Multiple-typ e hyperlipidemia Take 1 tablet [...] By: Dorian Restrepo MD 09/25/2024 4:27:21 PM CUSTOMER SUPPORT PROFESSIONAL Moderate pulmonary hypertension 11/15/2024 Overview (11/15/2024): Discovered during hospitalization September 2025. Requested advice from Cardiology regarding further workup. Please refer to information under HFpEF Diarrhea 09/23/2024 Diabetic macular edema of left eye 09/23/2024 Assessment & Plan (12/25/2024 7:03 AM CUSTOMER SUPPORT PROFESSIONAL): Stable today. Will follow with OCT after stopping difluprednate drops Assessment & Plan (09/23/2024 9:58 PM CUSTOMER SUPPORT PROFESSIONAL): Resolved today with oral prednisone taper. Will follow with OCT as she has stopped prednisone. UTI (urinary tract infection) 09/22/2024 Assessment & Plan (09/22/2024 3:51 PM CUSTOMER SUPPORT PROFESSIONAL): Acute, found upon recent ER visit s/p fall on 09/18/24. Was given macrobid at first but culture came back resistant and was started on keflex on 09/20/24. Patient appears ill, afebrile, BP stable while sitting but orthostatic dropped almost 30 points. No acute abdominal findings or CVA tenderness. Consulted with Dr. Barbosa in office today, she recommends direct admit for UTI/dehydration. -accepted at [facility]. Weakness 09/22/2024 Assessment & Plan (09/22/2024 4:33 PM CUSTOMER SUPPORT PROFESSIONAL): Worse in the last 1-2 weeks but uncontrollable in the last 2 days. Likely related to questionable urosepsis, see plan for UTI above. Dehydration 09/22/2024 Assessment & Plan (09/22/2024 4:39 PM CUSTOMER SUPPORT PROFESSIONAL): Acute, found upon recent CMP done in ER s/p fall 4 days ago. Na 133, chloride 95, creatinine stable. Orthostatic BP dropped almost 30 points upon standing in office today. Oral mucous membranes are pale and dry, skin is pale, turgor is slow. Consulted with Dr. Barbosa in office today, she suggested direct admit, accepted by Dr. Freedman at [facility]. Orthostatic hypotension 09/22/2024 Assessment & Plan (09/22/2024 4:40 PM CUSTOMER SUPPORT PROFESSIONAL): Acute, + in office today. See plan for dehydration below. Accepted for direct admit to [facility]. Intermediate uveitis of both eyes 08/07/2024 Overview (08/19/2024): Diagnosis: Intermediate uveitis both eyes Complications: None Last active: 08/07/24 ou Systemic associations: None Labs: Positive: None Negative/normal: T pallidum antibody and CXR Care Team: Other notes: Referred by Tawanda Fournier Assessment & Plan (12/25/2024 7:02 AM CUSTOMER SUPPORT PROFESSIONAL): She has no active inflammation today. She has had multiple adverse effects from prednisone including falls and hyperglycemia. Will plan for Ozurdex for further therapy if needed.. OK to stay off of steroid drops. Assessment & Plan (09/23/2024 9:53 PM CUSTOMER SUPPORT PROFESSIONAL): She has no active inflammation today after [...] 07/24/2024 Assessment & Plan (12/25/2024 7:01 AM CUSTOMER SUPPORT PROFESSIONAL): She has persistent CME that is stable and non-central OS. Observe at this point, stressed BG control. Assessment & Plan (09/23/2024 9:54 PM CUSTOMER SUPPORT PROFESSIONAL): She is off of oral prednisone and [...] Arch support shoes with metatarsal pad from [employer] Hematoma and contusion 03/09/2023 [...] 06/11/2019 Assessment & Plan (12/09/2019 11:28 AM CUSTOMER SUPPORT PROFESSIONAL): Blood pressure much better controlled. She brought home log and cuff with her to today's visit and blood pressure 120-140 systolic and 70-80 diastolic. We will continue present medication regimen and refills will be sent to pharmacy. Assessment & Plan (11/11/2019 11:33 AM CUSTOMER SUPPORT PROFESSIONAL): Blood pressure remains elevated, but better controlled [...] weeks. Assessment & Plan (11/04/2019 5:05 PM CUSTOMER SUPPORT PROFESSIONAL): With uncontrolled blood pressure upon arrival to [...] 12/04/2023 Assessment & Plan (12/09/2019 12:18 PM CUSTOMER SUPPORT PROFESSIONAL): Patient reports issues of anxiety, tearfulness and depression with coping through her son's cancer and hospice care. Have discussed with patient and we will begin a low dose celexa. She will follow up in 6 weeks to determine effectiveness. She is to call with any questions or concerns. Grief support group encouraged Blurred vision 11/11/2019 08/22/2021 Assessment & Plan (11/11/2019 11:30 AM CUSTOMER SUPPORT PROFESSIONAL): Patient is reporting blurred vision worse in [...] 08/22/2021 Assessment & Plan (11/11/2019 11:29 AM CUSTOMER SUPPORT PROFESSIONAL): Improved s/p antibiotic eye drops. There is concern for possible allergic component as she reports occasional clear discharge and redness. She was encouraged to continue daily allergy pill and to see upscale security officer for further evaluation. Assessment & Plan (11/04/2019 5:02 PM CUSTOMER SUPPORT PROFESSIONAL): Patient has erythema and mucoid discharge noted [...] drink = 0.6 oz pur e alcohol) [facility] [employer] Answer Date Recorded In the past 12 months has [employer], gas, oil, or water [employer] threatened to shut off services in your [...] often do you attend chur ch or episcopal services? Never 09/23/2024 Do you belong to any clubs o r organizations such as congregational groups, unions, fraternal or athletic groups, or [...] staff should administer the PHQ-9) 1 07/24/2024 [facility]at [facility] - Occupational Stress Questionnaire Answer Date Recorded [...] any time in the past 12 m [facility], were you homeless or living in a care home (including now)? No 09/23/2024 Personal Safety Answer Date Recorded Have you ever been in or are you currently in a harmful physical or emotional relationship or is someone making you feel afraid or unsafe? Denies 09/22/2024 Comments No Sex and Gender Information Value Date Recorded Sex Assigned at Not on file Legal Sex Female 11:43 AM CUSTOMER SUPPORT PROFESSIONAL Gender Identity Not on file Sexual Orientation Not on file Occupation Industry Job Start Date Job End Date retired Not on file Not on file Not on file Last Filed Vital Signs Vital Sign Reading Time Taken Comments Blood Pressure 139/74 12/25/2024 2:18 PM CUSTOMER SUPPORT PROFESSIONAL Pulse 88 12/25/2024 2:18 PM CUSTOMER SUPPORT PROFESSIONAL Temperature 36.7 C (98.1 F) 10/03/2024 2:53 PM CUSTOMER SUPPORT PROFESSIONAL Respiratory Rate 18 12/25/2024 2:18 PM CUSTOMER SUPPORT PROFESSIONAL Oxygen Saturation 93% 10/03/2024 2:53 PM CUSTOMER SUPPORT PROFESSIONAL Inhaled Oxygen Concentration - - Weight 64.9 kg (143 lb) 12/25/2024 2:18 PM CUSTOMER SUPPORT PROFESSIONAL Height 160 cm (5' 3 ) 12/25/2024 2:18 PM CUSTOMER SUPPORT PROFESSIONAL Body Mass Index 25.33 12/25/2024 2:18 PM CUSTOMER SUPPORT PROFESSIONAL Plan of Treatment Not on file Procedures Procedure Name Priority Date/Time Associated Diagnosis Comments OCT, RETINA - OU - BOTH EYES Routine 12/22/2024 10:30 AM CUSTOMER SUPPORT PROFESSIONAL Intermediate uveitis of both eyes EGFR Routine 10/03/2024 9:15 AM CUSTOMER SUPPORT PROFESSIONAL HEMOGLOBIN A1C Routine 07/17/2024 8:05 AM CDT Type 2 diabetes mellitus without complication, without long-term current use of insulin (HCC) ALBUMIN CREATININE RATIO, URINE Routine 07/17/2024 8:05 AM CDT Type 2 diabetes mellitus without complication, without long-term current use of insulin (HCC) DEXA AXIAL SKELETON BONE DENSITY 1 OR MORE SITES Schedule Routine, Read Routine (OP Routine) 08/31/2023 12:55 PM CUSTOMER SUPPORT PROFESSIONAL Menopause LIPID PANEL Routine 04/20/2020 12:37 PM CDT Benign hypertension Multiple-type hyperlipidemia from Last 3 Months or Most Recently Relevant to Health Maintenance Results * OCT, Retina - OU - Both Eyes (12/22/2024 10:30 AM CUSTOMER SUPPORT PROFESSIONAL) Anatomical Region Laterality Modality Head Optical Coherenc e Tomography Narrative 12/25/2024 6:56 AM CUSTOMER SUPPORT PROFESSIONAL OD: Few hard exudates temporal, stable from prior OS: Stable non-central CME nasal us Jurgen Davis MD OPHTH TOMOGRAPHY Final Res ult * eGFR (10/03/2024 9:15 AM CUSTOMER SUPPORT PROFESSIONAL) eGFR 63 >=60 mL/min/1. 73 m2 Comment: [...] last reviewed 2021. Blood 10/03/2024 9:15 AM CUSTOMER SUPPORT PROFESSIONAL 10/03/2024 9:28 AM CUSTOMER SUPPORT PROFESSIONAL us Geo Khanna MD LAB BLOOD ORDERABLES Final Resu lt CEREDO WPK ([place]) 6 [facility] Department [place] [address] * Albumin Creatinine Ratio, Urine (07/17/2024 8:05 AM CDT) Albumin Ur 13.7 mg/L Comment: Interpretive Data No reference range established. Current interpretive data was last revised 2019. Testing performed by: [facility], [address] [place]., [address] Creatinine Ur 121.0 mg/dL [facility] Comment: Interpretive Data No reference range established. Current interpretive data was last revised 2019. Testing performed by: [address] [address] Albumin Creatinine Ratio, Ur 11 1 - 29 mg/g TAYO Comment:Testing performed by : [address] [address] Urine 07/17/2024 8:05 AM CDT 07/17/2024 12:44 PM CDT us Marni Barbosa MD LAB URINE ORDERABLES Final Result Performing Organization Address City/[facility]/ZIP Co de Phone Number TAYO [address] [place] [address] * (ABNORMAL) Hemoglobin A1c (07/17/2024 8:05 AM CDT) Hgb A1C 6.8(H) 4.0 - 5.6 % Comment:Testing performed by : [address] [address] Estimated Average Glucose 148 mg/dL TAYO Comment: The ADA recommends reporting an estimated Average Glucose (eAG) with all Hemoglobin A1c results using the equation derived from a study of 507 normal and diabetic adults. Minority populations were underrepresented and children were not included. (Diabetes Care 31:1109-5359, 2008). The eAG is not equivalent to a fasting glucose. Testing performed by: [address] [address] Blood 07/17/2024 8:05 AM CDT 07/17/2024 12:44 PM CDT us Marni Barbosa MD LAB BLOOD ORDERABLES Final Result Performing Organization Address City/[facility]/ZIP Co de Phone Number 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
--- OUTSIDE RECORDS SUMMARY | 2025-02-07 09:20 | XMS_ITS | Continuity of Care Document ---
Author Organization [facility] Address [address] [place] [address] [address] [place] [address] Phone Care Team Providers Care Animal Husbandry Teacher Name Role Phone Clementine Low OD Unavailable [...] Diagnoses Date Provider Providers Copied on Encounter [facility], [address] [place] [address] [address], [place], [place], [id number], tel:[phone] SEC [place] Professional 2 week s/p YAG PC (chief complaint) Post op visit 3 Devante CALI Clementine. [facility] [employer], [address], [place], [place], [id number], [place]. tel:[phone] Referring Provider: Marni Barbosa MD, [address], [place], [address]. tel:[phone] [facility], [facility] [employer] [address], [place], [place], [id number], tel:[phone] SEC [place] Professional YAG PC (chief complaint) Presence of intraocular lensOther secondary cataract, left eye Mar-3 3 Gabino Lanier. [address] [facility], [facility] [place], [place], [id number], [place]. tel:[phone] Referring Provider: Marni Barbosa MD, [address] [place], [address]. tel:[phone] Office/outpa tient Visit, Est [facility], [facility] [employer] [address], [place], [place], [id number], [place] tel:[phone] SEC Ryan MYERS Professional Diabetic eye exam (chief complaint) Presence of intraocular lensType 2 diab with mild nonp rtnop without mclr edema, r eyeVitreous degeneration, right eyeOther secondary cataract, bilateralDry eye syndrome of bilateral lacrimal glandsOther secondary cataract, right eye Mar-0 3 Gabino Lanier. [address] [facility], [facility] [place], [place], [id number], [place]. tel:[phone] Referring Provider: Marni Barbosa MD, [address], [place], [address]. tel:[phone] [facility], [address] [place] [address] [address], [place], [place], [id number], [place] tel:[phone] SEC [facility] Professional diabetic eye exam (chief complaint) Presence of intraocular lensType 2 diab with mild nonp rtnop without mclr edema, r eye Apr- 1 Lloyd Yannick. [address] [facility], [address], [place], [place], [id number], [place]. tel:[phone] Referring Provider: Marni Barbosa MD, [address], [place], [address]. tel:[phone] [facility], [address] [place], [place] [address] [address], [place], [place], [id number], [place] tel:[phone] SEC [facility] Professional No Information b-0 0 Grant OD Luis. [address] [place] [address], [address] [place] [address], [place], [address], [place]. tel:[phone] Referring Provider: Marni Barbosa MD, [address], [place], [address]. tel:[phone] [facility], [facility] [employer] [address], [place], [place], [id number], [place] tel:[phone] SEC [facility] Professional Complete Exam (chief complaint) Viral conjunctiviti s of both eyesAllergic conjunctiviti s of both eyesPresence of intraocular lensType 2 diabetes mellitus without complication, without long-term current use of insulin b-0 0 Grant OD Luis. [address] [place] [address], [address] [place] [address], [place], [address], [place]. tel:[phone] Referring Provider: Marni Barbosa MD, [address], [place], [address]. tel:[phone] [facility], [address] [place] [address] [address], [place], [place], [id number], [place] tel:[phone] [place] Professional Burning (chief complaint) Viral conjunctiviti s of both eyesAllergic conjunctiviti s of both eyes 0 Grant Batistaic. [address] [facility], [address]th Floor, [place], [address], [place]. tel:[phone] Referring Provider: Marni Barbosa MD, [address], [place], [address]. tel:[phone] [facility] Eye [facility], [address] [address], [place], [place], [id number], [place] tel:[phone] SEC [place] Professiona l No Information 0 Gabino Lanier. [address] [facility], [address], [place], [place], [id number], [place]. tel:[phone] Family History Family Member Type Diagnosis Age [...]
--- OUTSIDE RECORDS SUMMARY | 2025-02-07 09:20 | XMS_ITS | Clinical Summary ---
Author Organization [facility] [place] [address] Address [address] [place] [address] Phone Care Team Providers Care Career Development Coordinator Name Role Phone Marni Barbosa MD Primary Care Provider [phone] Jag Burch MD Unavailable [phone] Homero Ordoñez NP Unavailable [phone] Allergies No known active allergies Medications turmeric root extract 500 mg capsuleIndications :Arthritis of knee Take 500 mg by mouth 3 (three) times a day 90 capsule 6 08/22/20 21 Active Additional Information Patient not taking.Reported on 12/25/2024 blood-glucose meter miscIndications:Ty pe 2 diabetes mellitus without complication, without long-term current use of insulin ([facility]) Use to test blood glucose once daily. [...] 1 tablet (88 mcg total) by mouth etl bi developer before breakfast 90 tablet 2 07/24/20 24 Active blood glucose diagnostic (glucose blood) stripIndications:T ype 2 diabetes mellitus with stage 3b chronic kidney disease, without long-term current use of insulin ([facility]) Use to test blood glucose once daily. Dispense one touch Verio test strips 100 each 3 07/24/20 24 025 Active atorvastatin (LIPITOR) 40 mg tabletIndications: Type 2 diabetes mellitus with stage 3b chronic kidney disease, without long-term current use of insulin ([facility]),Multiple-typ e hyperlipidemia Take 1 tablet (40 mg [...] By: Dorian Restrepo MD 09/25/2024 4:27:21 PM QUANTITATIVE RESEARCHER Moderate pulmonary hypertension 11/15/2024 Overview (11/15/2024): Discovered during hospitalization September 2025. Requested advice from Cardiology regarding further workup. Please refer to information under HFpEF Diarrhea 09/23/2024 Diabetic macular edema of left eye 09/23/2024 Assessment & Plan (12/25/2024 7:03 AM QUANTITATIVE RESEARCHER): Stable today. Will follow with OCT after stopping difluprednate drops Assessment & Plan (09/23/2024 9:58 PM QUANTITATIVE RESEARCHER): Resolved today with oral prednisone taper. Will follow with OCT as she has stopped prednisone. UTI (urinary tract infection) 09/22/2024 Assessment & Plan (09/22/2024 3:51 PM QUANTITATIVE RESEARCHER): Acute, found upon recent ER visit s/p fall on 09/18/24. Was given macrobid at first but culture came back resistant and was started on keflex on 09/20/24. Patient appears ill, afebrile, BP stable while sitting but orthostatic dropped almost 30 points. No acute abdominal findings or CVA tenderness. Consulted with Dr. Barbosa in office today, she recommends direct admit for UTI/dehydration. -accepted at [facility]. Weakness 09/22/2024 Assessment & Plan (09/22/2024 4:33 PM QUANTITATIVE RESEARCHER): Worse in the last 1-2 weeks but uncontrollable in the last 2 days. Likely related to questionable urosepsis, see plan for UTI above. Dehydration 09/22/2024 Assessment & Plan (09/22/2024 4:39 PM QUANTITATIVE RESEARCHER): Acute, found upon recent CMP done in ER s/p fall 4 days ago. Na 133, chloride 95, creatinine stable. Orthostatic BP dropped almost 30 points upon standing in office today. Oral mucous membranes are pale and dry, skin is pale, turgor is slow. Consulted with Dr. Barbosa in office today, she suggested direct admit, accepted by Dr. Freedman at [facility]. Orthostatic hypotension 09/22/2024 Assessment & Plan (09/22/2024 4:40 PM QUANTITATIVE RESEARCHER): Acute, + in office today. See plan for dehydration below. Accepted for direct admit to [facility]. 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 She has had multiple adverse effects from prednisone including falls and hyperglycemia. Will plan for Ozurdex for further therapy if needed.. OK to stay off of steroid drops. Assessment & Plan (09/23/2024 9:53 PM QUANTITATIVE RESEARCHER): She has no active inflammation today after [...] 07/24/2024 Assessment & Plan (12/25/2024 7:01 AM QUANTITATIVE RESEARCHER): She has persistent CME that is stable and non-central OS. Observe at this point, stressed BG control. Assessment & Plan (09/23/2024 9:54 PM QUANTITATIVE RESEARCHER): She is off of oral prednisone and [...] Arch support shoes with metatarsal pad from [employer] Hematoma and contusion 03/09/2023 [...] 06/11/2019 Assessment & Plan (12/09/2019 11:28 AM QUANTITATIVE RESEARCHER): Blood pressure much better controlled. She brought home log and cuff with her to today's visit and blood pressure 120-140 systolic and 70-80 diastolic. We will continue present medication regimen and refills will be sent to pharmacy. Assessment & Plan (11/11/2019 11:33 AM QUANTITATIVE RESEARCHER): Blood pressure remains elevated, but better controlled [...] weeks. Assessment & Plan (11/04/2019 5:05 PM QUANTITATIVE RESEARCHER): With uncontrolled blood pressure upon arrival to [...] 12/04/2023 Assessment & Plan (12/09/2019 12:18 PM QUANTITATIVE RESEARCHER): Patient reports issues of anxiety, tearfulness and depression with coping through her son's cancer and hospice care. Have discussed with patient and we will begin a low dose celexa. She will follow up in 6 weeks to determine effectiveness. She is to call with any questions or concerns. Grief support group encouraged Blurred vision 11/11/2019 08/22/2021 Assessment & Plan (11/11/2019 11:30 AM QUANTITATIVE RESEARCHER): Patient is reporting blurred vision worse in [...] 08/22/2021 Assessment & Plan (11/11/2019 11:29 AM QUANTITATIVE RESEARCHER): Improved s/p antibiotic eye drops. There is concern for possible allergic component as she reports occasional clear discharge and redness. She was encouraged to continue daily allergy pill and to see private equity analyst for further evaluation. Assessment & Plan (11/04/2019 5:02 PM QUANTITATIVE RESEARCHER): Patient has erythema and mucoid discharge noted in left lower conjunctiva, with concern for possible bacterial conjunctivitis. Antibiotic ophthalmic solution sent. Patient instructed to use 2 drops in left eye QID x 5 days. If symptoms worsen or persist she was instructed to call. Encounters Date Type Department Care Team Description 12/25/2024 2:15 PM QUANTITATIVE RESEARCHER Office Visit [facility] at [address] [phone] Homero Ordoñez NP History of adenomatous polyp of colon (Primary Dx); Type 2 diabetes mellitus with other ophthalmic complication, without long-term current use of insulin (HCC); Orthostatic hypotension; Congestive heart failure, unspecified HF chronicity, unspecified heart failure type (HCC); Type 2 diabetes mellitus with chronic kidney disease, without long-term current use of insulin, unspecified CKD stage (HCC) 12/22/2024 10:30 AM QUANTITATIVE RESEARCHER Office Visit [facility] [address] [phone] Jurgen Davis MD Intermediate uveitis of both eyes (Primary Dx); 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); Type 2 diabetes mellitus with chronic kidney disease, without long-term current use of insulin, unspecified CKD stage (HCC) 11/20/2024 Telephone [facility] [address] [place] [address] Jurgen Davis MD Medical Records Request 11/13/2024 1:30 PM QUANTITATIVE RESEARCHER Office Visit [facility] at [address] [phone] Homero Ordoñez NP History of adenomatous polyp of colon (Primary Dx); Type 2 diabetes mellitus with other ophthalmic complication, without long-term current use of insulin (HCC); Orthostatic hypotension; Type 2 diabetes mellitus with chronic kidney disease, without long-term current use of insulin, unspecified CKD stage (HCC); Dehydration; Congestive heart failure, unspecified HF chronicity, unspecified heart failure type (HCC) 11/13/2024 Orders Only [facility] at [address] [phone] Homero Ordoñez NP Congestive heart failure, unspecified [...] COLONOSCOPY 10/22/2016 - 10/21/2017 Single polyp in [place] Medical History Medical History Date Comments Diabetes [...] 0.6 oz pur e alcohol) [facility] Utilities Answer Date Recorded In the past 12 months has [employer], gas, oil, or water [employer] threatened to shut off services in your [...] often do you attend chur ch or pentecostal services? Never 09/23/2024 Do you belong to any clubs o r organizations such as christian groups, unions, fraternal or athletic groups, or [...] staff should administer the PHQ-9) 1 07/24/2024 [facility] - Occupational Stress [...] any time in the past 12 m [facility], were you homeless or living in a skilled nursing (including now)? No 09/23/2024 Personal Safety Answer Date Recorded Have you ever been in or are you currently in a harmful physical or emotional relationship or is someone making you feel afraid or unsafe? Denies 09/22/2024 Comments No Sex and Gender Information Value Date Recorded Sex Assigned at Not on file Legal Sex Female 11:43 AM QUANTITATIVE RESEARCHER Gender Identity Not on file Sexual Orientation [...] Comments Blood Pressure 139/74 12/25/2024 2:18 PM QUANTITATIVE RESEARCHER Pulse 88 12/25/2024 2:18 PM QUANTITATIVE RESEARCHER Temperature 36.7 C (98.1 F) 10/03/2024 2:53 PM QUANTITATIVE RESEARCHER Respiratory Rate 18 12/25/2024 2:18 PM QUANTITATIVE RESEARCHER Oxygen Saturation 93% 10/03/2024 2:53 PM QUANTITATIVE RESEARCHER Inhaled Oxygen Concentration - - Weight 64.9 kg (143 lb) 12/25/2024 2:18 PM QUANTITATIVE RESEARCHER Height 160 cm (5' 3 ) 12/25/2024 2:18 PM QUANTITATIVE RESEARCHER Body Mass Index 25.33 12/25/2024 2:18 PM QUANTITATIVE RESEARCHER Plan of Treatment Health Maintenance Due Date [...] - BOTH EYES Routine 12/22/2024 10:30 AM QUANTITATIVE RESEARCHER Intermediate uveitis of both eyes EGFR Routine 10/03/2024 9:15 AM QUANTITATIVE RESEARCHER HEMOGLOBIN A1C Routine 07/17/2024 8:05 AM CDT Type 2 diabetes mellitus without complication, without long-term current use of insulin (HCC) ALBUMIN CREATININE RATIO, URINE Routine 07/17/2024 8:05 AM CDT Type 2 diabetes mellitus without complication, without long-term current use of insulin (HCC) DEXA AXIAL SKELETON BONE DENSITY 1 OR MORE SITES Schedule Routine, Read Routine (OP Routine) 08/31/2023 12:55 PM QUANTITATIVE RESEARCHER Menopause LIPID PANEL Routine 04/20/2020 12:37 PM CDT Benign hypertension Multiple-type hyperlipidemia from Last 3 Months or Most Recently Relevant to Health Maintenance Results * OCT, Retina - OU - Both Eyes (12/22/2024 10:30 AM QUANTITATIVE RESEARCHER) Anatomical Region Laterality Modality Head Optical Coherenc e Tomography Narrative 12/25/2024 6:56 AM QUANTITATIVE RESEARCHER OD: Few hard exudates temporal, stable from prior OS: Stable non-central CME nasal us Jurgen Davis MD OPHTH TOMOGRAPHY Final Res ult * eGFR (10/03/2024 9:15 AM QUANTITATIVE RESEARCHER) eGFR 63 >=60 mL/min/1. 73 m2 Comment: [...] last reviewed 2021. Blood 10/03/2024 9:15 AM QUANTITATIVE RESEARCHER 10/03/2024 9:28 AM QUANTITATIVE RESEARCHER us Geo Khanna MD LAB BLOOD ORDERABLES Final Resu lt TAYO [facility] 1 [facility] Department [place] [address] * Albumin Creatinine Ratio, Urine (07/17/2024 8:05 AM CDT) Albumin Ur 13.7 mg/L Comment: Interpretive Data No reference range established. Current interpretive data was last revised 2019. Testing performed by: [address] [address] Creatinine Ur 121.0 mg/dL TAYO Comment: Interpretive Data No reference range established. Current interpretive data was last revised 2019. Testing performed by: [address] [address] Albumin Creatinine Ratio, Ur 11 1 - 29 mg/g TAYO Comment:Testing performed by : [address] [address] Urine 07/17/2024 8:05 AM CDT 07/17/2024 12:44 PM CDT Marni Barbosa MD LAB URINE ORDERABLES Final Result Performing Organization Address [facility] Co de Phone Number TAYO [address] Department [place] [address] * (ABNORMAL) Hemoglobin A1c (07/17/2024 8:05 AM CDT) Hgb A1C 6.8(H) 4.0 - 5.6 % Comment:Testing performed by : [address] [address] Estimated Average Glucose 148 mg/dL TAYO Comment: The ADA recommends reporting an estimated Average Glucose (eAG) with all Hemoglobin A1c results using the equation derived from a study of 507 normal and diabetic adults. Minority populations were underrepresented and children were not included. (Diabetes Care 31:8968-2672, 2008). The eAG is not equivalent to a fasting glucose. Testing performed by: [address] [address] Blood 07/17/2024 8:05 AM CDT 07/17/2024 12:44 PM CDT us Marni Barbosa MD LAB [place] [address] [place] Department [place] [address] * Dexa Axial Skeleton Bone Density 1 or 2 Site (08/31/2023 12:55 PM QUANTITATIVE RESEARCHER) Anatomical Region Laterality Modality Body N/A Other 08/31/2023 1:23 PM QUANTITATIVE RESEARCHER Narrative 08/31/2023 1:25 PM QUANTITATIVE RESEARCHER EXAM DESCRIPTION: DEXA AXIAL SKELETON BONE DENSITY 1 OR MORE SITES REASON FOR STUDY: 82 y/o year old F with given history of: menopause Osteoporosis screening 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 MF: HECTOR Report ID: [id number] Reading Location: [address] Note Collin Vargas MD - 08/31/2023 EXAM DESCRIPTION: DEXA AXIAL SKELETON BONE DENSITY 1 OR MORE SITES REASON FOR STUDY: 82 y/o year old F with given history of: menopause Osteoporosis screening Post menopausal Sanitation Officer/Model: [employer] SL (S/N [id number]) CLINICAL INFORMATION: Current height: 65.5 inches Maximum [...] Collin Vargas M.D. 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
[2025-02-07 09:54] LABS: Anion Gap 9 mmol/L (4-12); Blood Urea Nitrogen 62 mg/dL (7-18); Calcium 9.8 mg/dL (8.5-10.1); Carbon Dioxide 25 mmol/L (21-32); Chloride 103 mmol/L (98-108); Estimated Glomerular Filt Rate 28; Glucose 262 mg/dL (70-99); Osmolality Calculated 310 mOsm/kg (285-295); Sodium 137 mmol/L (136-145)
== END 2025-02-07 09:16 | disposition home or self-care (01) ==
PROVIDERS: PCP Family Medicine; Visit Provider Family Medicine
DX: E11.22 Type 2 diabetes mellitus with diabetic chronic kidney disease (principal); N18.30 Chronic kidney disease, stage 3 unspecified
CPT/HCPCS: 36415; 80048

== ENCOUNTER 2025-02-24 09:10 | Outpatient (CLI) | payer MEDICARE, SELFPAY ==
--- OUTSIDE RECORDS SUMMARY | 2025-02-24 09:46 | XMS_ITS | Continuity of Care Document ---
Author Organization [facility] Address [address] [place] [address] [address] [place] [address] Phone Care Team Providers Care Court Messenger Name Role Phone Clementine Low OD Unavailable [...] Diagnoses Date Provider Providers Copied on Encounter [facility], [address] [place] [address] [employer] [address], [place], [place], [id number], tel:[phone] SEC [place] Professional 2 week s/p YAG PC (chief complaint) Post op visit 3 Devante CALI Clementine. [facility] [employer], [address], [place], [place], [id number], [place]. tel:[phone] Referring Provider: Marni Barbosa MD, [address] [employer], [place], [address]. tel:[phone] [facility], [facility] [employer], [place], [place], [id number], tel:[phone] SEC [place] Professional YAG PC (chief complaint) Presence of intraocular lensOther secondary cataract, left eye Mar-3 3 Gab[place] Lanier. [address] [facility] [place], [facility] [place], [address], [place]. tel:[phone] Referring Provider: Marni Barbosa MD, [address] [place], [address]. tel:[phone] Office/outpa tient Visit, Est [facility], [facility] [address], [place], [place], [id number], [place] tel:[phone] SEC Ryan MYERS Professional Diabetic eye exam (chief complaint) Presence of intraocular lensType 2 diab with mild nonp rtnop without mclr edema, r eyeVitreous degeneration, right eyeOther secondary cataract, bilateralDry eye syndrome of bilateral lacrimal glandsOther secondary cataract, right eye Mar-0 3 Gab[place] Lanier. [address] [facility], [facility] [place], [address], [place]. tel:[phone] Referring Provider: Marni Barbosa MD, [address] [employer], [place], [address]. tel:[phone] [facility], [address] [place] [address] [address], [place], [place], [address], [place] tel:[phone] SEC [facility] Professional diabetic eye exam (chief complaint) Presence of intraocular lensType 2 diab with mild nonp rtnop without mclr edema, r eye Apr- 1 Lloyd Yannick. [address] [facility], [address], [place], [place], [address], [place]. tel:[phone] Referring Provider: Marni Barbosa MD, [address] [employer], [place], [address]. tel:[phone] [facility], [address] [place], [place] [address] [address], [place], [place], [address], [place] tel:[phone] SEC [facility] Professional No Information b-0 0 Grant OD Luis. [address] [place] [address], [address] [place] [address], [place], [address], [place]. tel:[phone] Referring Provider: Marni Barbosa MD, [address] [employer], [place], [address]. tel:[phone] [facility], [facility] [employer] [address], [place], [place], [address], [place] tel:[phone] SEC [facility] Professional Complete Exam (chief complaint) Viral conjunctiviti s of both eyesAllergic conjunctiviti s of both eyesPresence of intraocular lensType 2 diabetes mellitus without complication, without long-term current use of insulin b-0 0 Grant OD Luis. [address] [place] [address], [address] [place] [address], [place], [address], [place]. tel:[phone] Referring Provider: Marni Barbosa MD, [address] [employer], [place], [address]. tel:[phone] [facility], [address] [place] [address] [address], [place], [place], [address], [place] tel:[phone] SEC [place] Professional Burning (chief complaint) Viral conjunctiviti s of both eyesAllergic conjunctiviti s of both eyes [address] [facility], 6th Floor, [place], [address], [place]. tel:[phone] Referring Provider: Marni Barbosa MD, [address], [place], [address]. tel:[phone] [facility] Eye [facility], [address] [address], [place], [place], [address], [place] tel:[phone] SEC [place] Professiona l No Information 0 [place] Lanier. [address] [facility], [address], [place], [place], [address], [place]. tel:[phone] Family History Family Member Type Diagnosis Age [...]
--- OUTSIDE RECORDS SUMMARY | 2025-02-24 09:46 | XMS_ITS | Referral Summary ---
Author Organization [facility] [place] [address] [facility] [address] Address [address] [place] [address] Phone Care Team Providers Care Career Education Teacher Name Role Phone Marni Barbosa MD Primary Care Provider [phone] Jag Burch MD Unavailable [phone] Homero Ordoñez NP Unavailable Encounters Date Type Department Care Team Description 12/25/2024 2:15 PM HOT MILL RO[employer]ER Office Visit [facility] at [address] [place] [address] Homero Ordoñez NP History of adenomatous polyp of colon (Primary Dx); Type 2 diabetes mellitus with other ophthalmic complication, without long-term current use of insulin (HCC); Orthostatic hypotension; Congestive heart failure, unspecified HF chronicity, unspecified heart failure type (HCC); Type 2 diabetes mellitus with chronic kidney disease, without long-term current use of insulin, unspecified CKD stage (HCC) 12/22/2024 10:30 AM HOT MILL ROLLER Office Visit [facility] [address] [place] [address] Jurgen Davis MD Intermediate uveitis of both eyes (Primary Dx); 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 1 each 12/10/19 24 Active lancets (OneTouch Delica Plus Lancet) 30 gauge miscIndications:Ty pe 2 diabetes mellitus without complication, without long-term current use of insulin ([facility]) Use to check blood glucose levels once [...] 1 tablet (88 mcg total) by mouth pumper gager before breakfast 90 tablet 2 07/24/20 24 Active blood glucose diagnostic (glucose blood) stripIndications:T ype 2 diabetes mellitus with stage 3b chronic kidney disease, without long-term current use of insulin ([facility]) Use to test blood glucose once daily. Dispense one touch Verio test strips 100 each 3 07/24/20 24 025 Active atorvastatin (LIPITOR) 40 mg tabletIndications: Type 2 diabetes mellitus with stage 3b chronic kidney disease, without long-term current use of insulin ([facility]),Multiple-typ e hyperlipidemia Take 1 tablet (40 mg [...] By: Dorian Restrepo MD 09/25/2024 4:27:21 PM HOT MILL ROLLER Moderate pulmonary hypertension 11/15/2024 Overview (11/15/2024): Discovered during hospitalization September 2025. Requested advice from Cardiology regarding further workup. Please refer to information under HFpEF Diarrhea 09/23/2024 Diabetic macular edema of left eye 09/23/2024 Assessment & Plan (12/25/2024 7:03 AM HOT MILL ROLLER): Stable today. Will follow with OCT after stopping difluprednate drops Assessment & Plan (09/23/2024 9:58 PM HOT MILL ROLLER): Resolved today with oral prednisone taper. Will follow with OCT as she has stopped prednisone. UTI (urinary tract infection) 09/22/2024 Assessment & Plan (09/22/2024 3:51 PM HOT MILL ROLLER): Acute, found upon recent ER visit s/p fall on 09/18/24. Was given macrobid at first but culture came back resistant and was started on keflex on 09/20/24. Patient appears ill, afebrile, BP stable while sitting but orthostatic dropped almost 30 points. No acute abdominal findings or CVA tenderness. Consulted with Dr. Barbosa in office today, she recommends direct admit for UTI/dehydration. -accepted at [facility]. Weakness 09/22/2024 Assessment & Plan (09/22/2024 4:33 PM HOT MILL ROLLER): Worse in the last 1-2 weeks but uncontrollable in the last 2 days. Likely related to questionable urosepsis, see plan for UTI above. Dehydration 09/22/2024 Assessment & Plan (09/22/2024 4:39 PM HOT MILL ROLLER): Acute, found upon recent CMP done in ER s/p fall 4 days ago. Na 133, chloride 95, creatinine stable. Orthostatic BP dropped almost 30 points upon standing in office today. Oral mucous membranes are pale and dry, skin is pale, turgor is slow. Consulted with Dr. Barbosa in office today, she suggested direct admit, accepted by Dr. Freedman at [facility]. Orthostatic hypotension 09/22/2024 Assessment & Plan (09/22/2024 4:40 PM HOT MILL ROLLER): Acute, + in office today. See plan for dehydration below. Accepted for direct admit to [facility]. Intermediate uveitis of both eyes 08/07/2024 Overview (08/19/2024): Diagnosis: Intermediate uveitis both eyes Complications: None Last active: 08/07/24 ou Systemic associations: None Labs: Positive: None Negative/normal: T pallidum antibody and CXR Care Team: Other notes: Referred by Tawanda Fournier Assessment & Plan (12/25/2024 7:02 AM HOT MILL ROLLER): She has no active inflammation today. She has had multiple adverse effects from prednisone including falls and hyperglycemia. Will plan for Ozurdex for further therapy if needed.. OK to stay off of steroid drops. Assessment & Plan (09/23/2024 9:53 PM HOT MILL ROLLER): She has no active inflammation today after [...] 07/24/2024 Assessment & Plan (12/25/2024 7:01 AM HOT MILL ROLLER): She has persistent CME that is stable and non-central OS. Observe at this point, stressed BG control. Assessment & Plan (09/23/2024 9:54 PM HOT MILL ROLLER): She is off of oral prednisone and [...] Arch support shoes with metatarsal pad from [employer] Hematoma and contusion 03/09/2023 [...] 06/11/2019 Assessment & Plan (12/09/2019 11:28 AM HOT MILL ROLLER): Blood pressure much better controlled. She brought home log and cuff with her to today's visit and blood pressure 120-140 systolic and 70-80 diastolic. We will continue present medication regimen and refills will be sent to pharmacy. Assessment & Plan (11/11/2019 11:33 AM HOT MILL ROLLER): Blood pressure remains elevated, but better controlled [...] weeks. Assessment & Plan (11/04/2019 5:05 PM HOT MILL ROLLER): With uncontrolled blood pressure upon arrival to [...] 12/04/2023 Assessment & Plan (12/09/2019 12:18 PM HOT MILL ROLLER): Patient reports issues of anxiety, tearfulness and depression with coping through her son's cancer and hospice care. Have discussed with patient and we will begin a low dose celexa. She will follow up in 6 weeks to determine effectiveness. She is to call with any questions or concerns. Grief support group encouraged Blurred vision 11/11/2019 08/22/2021 Assessment & Plan (11/11/2019 11:30 AM HOT MILL ROLLER): Patient is reporting blurred vision worse in [...] 08/22/2021 Assessment & Plan (11/11/2019 11:29 AM HOT MILL ROLLER): Improved s/p antibiotic eye drops. There is concern for possible allergic component as she reports occasional clear discharge and redness. She was encouraged to continue daily allergy pill and to see block cutter for further evaluation. Assessment & Plan (11/04/2019 5:02 PM HOT MILL ROLLER): Patient has erythema and mucoid discharge noted [...] drink = 0.6 oz pur e alcohol) [facility] Utilities Answer Date Recorded In the past 12 months has th e electric, gas, oil, or water company threatened to shut off services in your [...] often do you attend chur ch or mosque services? Never 09/23/2024 Do you belong to any clubs o r organizations such as adventism groups, unions, fraternal or athletic groups, or [...] staff should administer the PHQ-9) 1 07/24/2024 [facility] [place] of Occupat ional Health - Occupational Stress [...] any time in the past 12 m [facility], were you homeless or living in a group home (including now)? No 09/23/2024 Personal Safety Answer Date Recorded Have you ever been in or are you currently in a harmful physical or emotional relationship or is someone making you feel afraid or unsafe? Denies 09/22/2024 Comments No Sex and Gender Information Value Date Recorded Sex Assigned at Not on file Legal Sex Female 11:43 AM HOT MILL ROLLER Gender Identity Not on file Sexual Orientation Not on file Occupation Industry Job Start Date Job End Date retired Not on file Not on file Not on file Last Filed Vital Signs Vital Sign Reading Time Taken Comments Blood Pressure 139/74 12/25/2024 2:18 PM HOT MILL ROLLER Pulse 88 12/25/2024 2:18 PM HOT MILL ROLLER Temperature 36.7 C (98.1 F) 10/03/2024 2:53 PM HOT MILL ROLLER Respiratory Rate 18 12/25/2024 2:18 PM HOT MILL ROLLER Oxygen Saturation 93% 10/03/2024 2:53 PM HOT MILL ROLLER Inhaled Oxygen Concentration - - Weight 64.9 kg (143 lb) 12/25/2024 2:18 PM HOT MILL ROLLER Height 160 cm (5' 3 ) 12/25/2024 2:18 PM HOT MILL ROLLER Body Mass Index 25.33 12/25/2024 2:18 PM HOT MILL ROLLER Plan of Treatment Not on file Procedures Procedure Name Priority Date/Time Associated Diagnosis Comments OCT, RETINA - OU - BOTH EYES Routine 12/22/2024 10:30 AM HOT MILL ROLLER Intermediate uveitis of both eyes EGFR Routine 10/03/2024 9:15 AM HOT MILL ROLLER HEMOGLOBIN A1C Routine 07/17/2024 8:05 AM CDT Type 2 diabetes mellitus without complication, without long-term current use of insulin (HCC) ALBUMIN CREATININE RATIO, URINE Routine 07/17/2024 8:05 AM CDT Type 2 diabetes mellitus without complication, without long-term current use of insulin (HCC) DEXA AXIAL SKELETON BONE DENSITY 1 OR MORE SITES Schedule Routine, Read Routine (OP Routine) 08/31/2023 12:55 PM HOT MILL ROLLER Menopause LIPID PANEL Routine 04/20/2020 12:37 PM CDT Benign hypertension Multiple-type hyperlipidemia from Last 3 Months or Most Recently Relevant to Health Maintenance Results * OCT, Retina - OU - Both Eyes (12/22/2024 10:30 AM HOT MILL ROLLER) Anatomical Region Laterality Modality Head Optical Coherenc e Tomography Narrative 12/25/2024 6:56 AM HOT MILL ROLLER OD: Few hard exudates temporal, stable from prior OS: Stable non-central CME nasal us Jurgen Davis MD OPHTH TOMOGRAPHY Final Res ult * eGFR (10/03/2024 9:15 AM HOT MILL ROLLER) eGFR 63 >=60 mL/min/1. 73 m2 Comment: [...] last reviewed 2021. Blood 10/03/2024 9:15 AM HOT MILL ROLLER 10/03/2024 9:28 AM HOT MILL ROLLER us Geo Khanna MD LAB BLOOD ORDERABLES Final Resu lt [facility] 1 [facility] Department [place] [address] * Albumin Creatinine Ratio, Urine (07/17/2024 8:05 AM CDT) Albumin Ur 13.7 mg/L Comment: Interpretive Data No reference range established. Current interpretive data was last revised 2019. Testing performed by: [address] [address] Creatinine Ur 121.0 mg/dL TAYO Comment: Interpretive Data No reference range established. Current interpretive data was last revised 2019. Testing performed by: [facility], [address] [place] [address]., [id number] Albumin Creatinine Ratio, Ur 11 1 - 29 mg/g TAYO Comment:Testing performed by : [facility], [address] [place] [address]., [id number] Urine 07/17/2024 8:05 AM CDT 07/17/2024 12:44 PM CDT Marni Barbosa MD LAB URINE ORDERABLES Final Result Performing Organization Address City/[facility]/ZIP Co de Phone Number TAYO [address] [place] [address] * (ABNORMAL) Hemoglobin A1c (07/17/2024 8:05 AM CDT) Hgb A1C 6.8(H) 4.0 - 5.6 % Comment:Testing performed by : [facility], [address] [place] [address]., [id number] Estimated Average Glucose 148 mg/dL [facility] [place] Comment: The ADA recommends reporting an estimated Average Glucose (eAG) with all Hemoglobin A1c results using the equation derived from a study of 507 normal and diabetic adults. Minority populations were underrepresented and children were not included. (Diabetes Care 31:1498-3589, 2008). The eAG is not equivalent to a fasting glucose. Testing performed by: [facility], [address] [place] [address]., [id number] Blood 07/17/2024 8:05 AM CDT 07/17/2024 12:44 PM CDT us Marni Barbosa MD LAB BLOOD ORDERABLES Final Result [facility] [id number] [facility] [place] [address] * Dexa Axial Skeleton Bone Density 1 or 2 Site (08/31/2023 12:55 PM HOT MILL ROLLER) Anatomical Region Laterality Modality Body N/A Other 08/31/2023 1:23 PM HOT MILL ROLLER Narrative 08/31/2023 1:25 PM HOT MILL ROLLER EXAM DESCRIPTION: DEXA AXIAL SKELETON BONE DENSITY 1 OR MORE SITES REASON FOR STUDY: 82 y/o year old F with given history of: menopause Osteoporosis screening Post menopausal Health Care Recruiter/Model: Lucky Sort (S/N [id number]) CLINICAL INFORMATION: Current height: 65.5 inches Maximum [...] Collin Vargas M.D. MF: HECTOR Report ID: [id number] Reading Location: [address] Note Collin Vargas MD - 08/31/2023 EXAM DESCRIPTION: DEXA AXIAL SKELETON BONE DENSITY 1 OR MORE SITES REASON FOR STUDY: 82 y/o year old F with given history of: menopause Osteoporosis screening Post menopausal Health Care Recruiter/Model: Lucky Sort (S/N [id number]) CLINICAL INFORMATION: Current height: 65.5 inches Maximum [...] Collin Vargas M.D. MF: HECTOR Report ID: [id number] Reading Location: [place] [address] Marni Barbosa MD IMSorin DXA PROCEDURES Final R esult * (ABNORMAL) Lipid panel (04/20/2020 12:37 PM CDT) [facility] Cholesterol 154 30 - 199 mg/dL [...] 12:37 PM CDT 04/20/2020 12:39 PM CDT us Luci Barcenas NP LAB BLOOD ORDERABL ES Final Result [facility] [place] [id number] [address] [place] [address] from Last 3 Months or Most Recently Relevant to Health Maintenance Insurance MEDICARE [facility] Address: [facility] [address] [place] [address] [employer] MEDICARE [employer] MEDICARE [employer] Advance Directives For more information, please contact: [phone] Documents on File Type Date 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
--- OUTSIDE RECORDS SUMMARY | 2025-02-24 09:46 | XMS_ITS | Clinical Summary ---
Author Organization [facility] [address] Address [address] [place] [address] Phone Care Team Providers Care Nurse Practitioner Physicians Assistant Name Role Phone Marni Barbosa MD Primary Care Provider [phone] Jag Burch MD Unavailable [phone] Homero Ordoñez NP Unavailable [phone] Allergies No known active allergies Medications turmeric root extract 500 mg capsuleIndications :Arthritis of knee Take 500 mg by mouth 3 (three) times a day 90 capsule 6 08/22/20 21 Active Additional Information Patient not taking.Reported on 12/25/2024 blood-glucose meter miscIndications:Ty pe 2 diabetes mellitus without complication, without long-term current use of insulin ([facility]) Use to test blood glucose once daily. 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 Dispense one touch Verio test strips 100 each 3 07/24/20 24 025 Active atorvastatin (LIPITOR) 40 mg tabletIndications: Type 2 diabetes mellitus with stage 3b chronic kidney disease, without long-term current use of insulin ([facility]),Multiple-typ e hyperlipidemia Take 1 tablet (40 mg [...] By: Dorian Restrepo MD 09/25/2024 4:27:21 PM [employer] Moderate pulmonary hypertension 11/15/2024 Overview (11/15/2024): Discovered during hospitalization September 2025. Requested advice from Cardiology regarding further workup. Please refer to information under HFpEF Diarrhea 09/23/2024 Diabetic macular edema of left eye 09/23/2024 Assessment & Plan (12/25/2024 7:03 AM [employer]): Stable today. Will follow with OCT after stopping difluprednate drops Assessment & Plan (09/23/2024 9:58 PM [employer]): Resolved today with oral prednisone taper. Will follow with OCT as she has stopped prednisone. UTI (urinary tract infection) 09/22/2024 Assessment & Plan (09/22/2024 3:51 PM [employer]): Acute, found upon recent ER visit s/p fall on 09/18/24. Was given macrobid at first but culture came back resistant and was started on keflex on 09/20/24. Patient appears ill, afebrile, BP stable while sitting but orthostatic dropped almost 30 points. No acute abdominal findings or CVA tenderness. Consulted with Dr. Barbosa in office today, she recommends direct admit for UTI/dehydration. -accepted at [facility]. Weakness 09/22/2024 Assessment & Plan (09/22/2024 4:33 PM [employer]): Worse in the last 1-2 weeks but uncontrollable in the last 2 days. Likely related to questionable urosepsis, see plan for UTI above. Dehydration 09/22/2024 Assessment & Plan (09/22/2024 4:39 PM [employer]): Acute, found upon recent CMP done in ER s/p fall 4 days ago. Na 133, chloride 95, creatinine stable. Orthostatic BP dropped almost 30 points upon standing in office today. Oral mucous membranes are pale and dry, skin is pale, turgor is slow. Consulted with Dr. Barbosa in office today, she suggested direct admit, accepted by Dr. Freedman at [facility]. Orthostatic hypotension 09/22/2024 Assessment & Plan (09/22/2024 4:40 PM [employer]): Acute, + in office today. See plan for dehydration below. Accepted for direct admit to [facility]. 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 She has had multiple adverse effects from prednisone including falls and hyperglycemia. Will plan for Ozurdex for further therapy if needed.. OK to stay off of steroid drops. Assessment & Plan (09/23/2024 9:53 PM [employer]): She has no active inflammation today after [...] 07/24/2024 Assessment & Plan (12/25/2024 7:01 AM [employer]): She has persistent CME that is stable and non-central OS. Observe at this point, stressed BG control. Assessment & Plan (09/23/2024 9:54 PM [employer]): She is off of oral prednisone and [...] Arch support shoes with metatarsal pad from [employer] Hematoma and contusion 03/09/2023 [...] 06/11/2019 Assessment & Plan (12/09/2019 11:28 AM [employer]): Blood pressure much better controlled. She brought home log and cuff with her to today's visit and blood pressure 120-140 systolic and 70-80 diastolic. We will continue present medication regimen and refills will be sent to pharmacy. Assessment & Plan (11/11/2019 11:33 AM [employer]): Blood pressure remains elevated, but better controlled [...] weeks. Assessment & Plan (11/04/2019 5:05 PM [employer]): With uncontrolled blood pressure upon arrival to [...] 12/04/2023 Assessment & Plan (12/09/2019 12:18 PM [employer]): Patient reports issues of anxiety, tearfulness and depression with coping through her son's cancer and hospice care. Have discussed with patient and we will begin a low dose celexa. She will follow up in 6 weeks to determine effectiveness. She is to call with any questions or concerns. Grief support group encouraged Blurred vision 11/11/2019 08/22/2021 Assessment & Plan (11/11/2019 11:30 AM [employer]): Patient is reporting blurred vision worse in [...] 08/22/2021 Assessment & Plan (11/11/2019 11:29 AM [employer]): Improved s/p antibiotic eye drops. There is concern for possible allergic component as she reports occasional clear discharge and redness. 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 Assessment & Plan (11/04/2019 5:02 PM [employer]): Patient has erythema and mucoid discharge noted in left lower conjunctiva, with concern for possible bacterial conjunctivitis. Antibiotic ophthalmic solution sent. Patient instructed to use 2 drops in left eye QID x 5 days. If symptoms worsen or persist she was instructed to call. Encounters Date Type Department Care Team Description 12/25/2024 2:15 PM [employer] Office Visit [facility] at [address] [address] Homero Ordoñez NP History of adenomatous polyp of colon (Primary Dx); Type 2 diabetes mellitus with other ophthalmic complication, without long-term current use of insulin (HCC); Orthostatic hypotension; Congestive heart failure, unspecified HF chronicity, unspecified heart failure type (HCC); Type 2 diabetes mellitus with chronic kidney disease, without long-term current use of insulin, unspecified CKD stage (HCC) 12/22/2024 10:30 AM [employer] Office Visit [facility] Ophthalmology [address] [place] [address] Jurgen Davis MD Intermediate uveitis of both eyes (Primary Dx); 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); Type 2 diabetes mellitus with chronic kidney disease, without long-term current use of insulin, unspecified CKD stage (HCC) from Last 3 Months Immunizations Immunization Administration [...] COLONOSCOPY 10/22/2016 - 10/21/2017 Single polyp in [place] Medical History Medical History Date Comments Diabetes [...] drink = 0.6 oz pur e alcohol) [facility] [employer] Answer Date Recorded In the past 12 [...] often do you attend chur ch or jain services? Never 09/23/2024 Do you belong to any clubs o r organizations such as islam groups, unions, fraternal or athletic groups, or [...] staff should administer the PHQ-9) 1 07/24/2024 [facility] - [facility] [...] any time in the past 12 m [facility], were you homeless or living in a detention (including now)? No 09/23/2024 Personal Safety Answer Date Recorded Have you ever been in or are you currently in a harmful physical or emotional relationship or is someone making you feel afraid or unsafe? Denies 09/22/2024 Comments No Sex and Gender Information Value Date Recorded Sex Assigned at Not on file Legal Sex Female 11:43 AM [employer] Gender Identity Not on file Sexual Orientation [...] Comments Blood Pressure 139/74 12/25/2024 2:18 PM [employer] Pulse 88 12/25/2024 2:18 PM [employer] Temperature 36.7 C (98.1 F) 10/03/2024 2:53 PM [employer] Respiratory Rate 18 12/25/2024 2:18 PM [employer] Oxygen Saturation 93% 10/03/2024 2:53 PM [employer] Inhaled Oxygen Concentration - - Weight 64.9 kg (143 lb) 12/25/2024 2:18 PM [employer] Height 160 cm (5' 3 ) 12/25/2024 2:18 PM [employer] Body Mass Index 25.33 12/25/2024 2:18 PM [employer] Plan of Treatment Health Maintenance Due Date Last Done Comments Lipid Panel 04/20/2021 04/20/2020 Hemoglobin A1C 01/14/2025 07/17/2024, 05/2024, 04/26/2023, Additional history exists Covid-19 Vaccine (2023-11 5 season) 2025 08/07/2024, 01/26/2024, 01/26/2024, Additional [...] - BOTH EYES Routine 12/22/2024 10:30 AM [employer] Intermediate uveitis of both eyes EGFR Routine 10/03/2024 9:15 AM [employer] HEMOGLOBIN A1C Routine 07/17/2024 8:05 AM CDT Type 2 diabetes mellitus without complication, without long-term current use of insulin (HCC) ALBUMIN CREATININE RATIO, URINE Routine 07/17/2024 8:05 AM CDT Type 2 diabetes mellitus without complication, without long-term current use of insulin (HCC) DEXA AXIAL SKELETON BONE DENSITY 1 OR MORE SITES Schedule Routine, Read Routine (OP Routine) 08/31/2023 12:55 PM [employer] Menopause LIPID PANEL Routine 04/20/2020 12:37 PM CDT Benign hypertension Multiple-type hyperlipidemia from Last 3 Months or Most Recently Relevant to Health Maintenance Results * OCT, Retina - OU - Both Eyes (12/22/2024 10:30 AM [employer]) Anatomical Region Laterality Modality Head Optical Coherenc e Tomography Narrative 12/25/2024 6:56 AM [employer] OD: Few hard exudates temporal, stable from prior OS: Stable non-central CME nasal us Jurgen Davis MD OPHTH TOMOGRAPHY Final Res ult * eGFR (10/03/2024 9:15 AM [employer]) eGFR 63 >=60 mL/min/1. 73 m2 Comment: [...] last reviewed 2021. Blood 10/03/2024 9:15 AM [employer] 10/03/2024 9:28 AM [employer] us Geo Khanna MD LAB BLOOD ORDERABLES Final Resu lt TAYO [facility] [place] [address] * Albumin Creatinine Ratio, Urine (07/17/2024 8:05 AM CDT) Albumin Ur 13.7 mg/L Comment: Interpretive Data No reference range established. Current interpretive data was last revised 2019. Testing performed by: [address] [address] Creatinine Ur 121.0 mg/dL TAYO Comment: Interpretive Data No reference range established. Current interpretive data was last revised 2019. Testing performed by: [address] [address] Albumin Creatinine Ratio, Ur 11 1 - 29 mg/g TAYO Comment:Testing performed by : [facility], [address] [place] [address]., [address] Urine 07/17/2024 8:05 AM CDT 07/17/2024 12:44 PM CDT us Marni Barbosa MD LAB URINE ORDERABLES Final Result Performing Organization Address [facility] Co de Phone Number TAYO [phone] [facility] [place] [address] * (ABNORMAL) Hemoglobin A1c (07/17/2024 8:05 AM CDT) Hgb A1C 6.8(H) 4.0 - 5.6 % Comment:Testing performed by : [address] [address] Estimated Average Glucose 148 mg/dL TAYO Comment: The ADA recommends reporting an estimated Average Glucose (eAG) with all Hemoglobin A1c results using the equation derived from a study of 507 normal and diabetic adults. Minority populations were underrepresented and children were not included. (Diabetes Care 31:9406-1947, 2008). The eAG is not equivalent to a fasting glucose. Testing performed by: [facility], [address] [place] [address]., [address] Blood 07/17/2024 8:05 AM CDT 07/17/2024 12:44 PM CDT us Marni Barbosa MD LAB BLOOD ORDERABLES Final Result Performing Organization Address [facility] de Phone Number TAYO [address] [place] [address] * Dexa Axial Skeleton Bone Density 1 or 2 Site (08/31/2023 12:55 PM [employer]) Anatomical Region Laterality Modality Body N/A Other 08/31/2023 1:23 PM [employer] Narrative 08/31/2023 1:25 PM [employer] EXAM DESCRIPTION: DEXA AXIAL SKELETON BONE DENSITY 1 OR MORE SITES REASON FOR STUDY: 82 y/o year old F with given history of: menopause Osteoporosis screening 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 MF: HECTOR Report ID: [id number] Reading Location: [place] [address] Marni Barbosa MD IM DXA PROCEDURES Final R esult * (ABNORMAL) Lipid panel (04/20/2020 12:37 PM CDT) [facility] Cholesterol 154 30 - 199 mg/dL [...] BLOOD ORDERABL ES Final Result TAYO [place] [address] [address] [place] [address] from Last 3 Months or Most Recently Relevant to Health Maintenance Insurance MEDICARE [employer] MEDICARE [employer] MEDICARE [employer] [id number] Advance Directives For more information, please contact: [phone] Documents on File Type Date Recorded 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
[2025-02-24 10:19] LABS: Anion Gap 7 mmol/L (4-12); Blood Urea Nitrogen 19 mg/dL (7-18); Carbon Dioxide 29 mmol/L (21-32); Chloride 105 mmol/L (98-108); Estimated Glomerular Filt Rate 42; Glucose 167 mg/dL (70-99); NT Pro B Type Natriuretic Pept 2925 pg/mL (0-450); Osmolality Calculated 298 mOsm/kg (285-295); Potassium 4.4 mmol/L (3.5-5.1); Sodium 141 mmol/L (136-145)
== END 2025-02-24 09:11 | disposition home or self-care (01) ==
PROVIDERS: PCP Family Medicine; Visit Provider Family Medicine
DX: M47.812 Spondylosis without myelopathy or radiculopathy, cervical region (principal); I50.9 Heart failure, unspecified
CPT/HCPCS: 36415; 80048; 83880

== ENCOUNTER 2025-04-16 13:42 | Outpatient (CLI) | payer MEDICARE, SELFPAY ==
[2025-04-16 14:29] LABS: Anion Gap 8 mmol/L (4-12); Blood Urea Nitrogen 33 mg/dL (7-17); Calcium 9.5 mg/dL (8.4-10.2); Carbon Dioxide 24 mmol/L (22-30); Chloride 106 mmol/L (98-107); Estimated Glomerular Filt Rate 38; Glucose 161 mg/dL (65-110); Osmolality Calculated 296 mOsm/kg (285-295); Potassium 4.5 mmol/L (3.4-5.0); Sodium 138 mmol/L (137-145)
== END 2025-04-16 13:43 | disposition home or self-care (01) ==
LOC: CHSLAB 13:44
PROVIDERS: PCP Family Medicine; Visit Provider Family Medicine
DX: J96.01 Acute respiratory failure with hypoxia (principal); N18.30 Chronic kidney disease, stage 3 unspecified; E78.2 Mixed hyperlipidemia; I95.1 Orthostatic hypotension
CPT/HCPCS: 36415; 80048

== ENCOUNTER 2025-04-21 09:49 | Outpatient (CLI) | payer MEDICARE, SELFPAY ==
--- NOTE | ~2025-04-21 | XR_ITS ---
XR abdomen/kub 1V Ordering provider: Slim Holt MD History: . cramping with bowel movements, abd pain X 2 weeks . Comparison: None. FINDINGS: BOWEL: Nonobstructive bowel gas pattern. ORGANOMEGALY: None. SIGNIFICANT PATHOLOGIC CALCIFICATIONS: Calcifications projected over the right transverse process of L5 which may be stones. Clinical correlation and follow-up advised. Artifacts are possible. OTHER: No free air is seen under the diaphragm. Degenerative the spine. IMPRESSION: NO ACUTE ABDOMINAL FINDINGS. Possible stones in the right ureter. Noncontrast CT is better for evaluation. Reviewed, dictated and finalized at location A.
--- OUTSIDE RECORDS SUMMARY | 2025-04-21 09:58 | XMS_ITS | Continuity of Care Document ---
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 [facility] Medical Referral Source, [address], [place], [place], [id number], [place]. tel:[phone] Referring Provider: Marni Barbosa MD, [address] [facility], [place], [address]. tel:[phone] [facility], [facility] [address], [place], [place], [id number], tel:[phone] SEC Humphrey [place] Professional YAG PC (chief complaint) Presence of intraocular lensOther secondary cataract, left eye Mar-3 3 Gabino Lanier. [address] [facility], [facility] [place], [place], [id number], [place]. tel:[phone] Referring Provider: Marni Barbosa MD, [address] [place], [address]. tel:[phone] Office/outpa tient Visit, Est [facility], [facility] [address], [place], [place], [id number], [place] tel:[phone] SEC Ryan MYERS Professional Diabetic eye exam (chief complaint) Presence of intraocular lensType 2 diab with mild nonp rtnop without mclr edema, r eyeVitreous degeneration, right eyeOther secondary cataract, bilateralDry eye syndrome of bilateral lacrimal glandsOther secondary cataract, right eye Mar-0 3 Gabino Lanier. [address] [facility], [facility] [place], [id number], [place]. tel:[phone] Referring Provider: Marni Barbosa MD, [address] [facility], [place], [address]. tel:[phone] [facility], [address] [place] [address] [address], [place], [place], [id number], [place] tel:[phone] SEC [facility] Professional diabetic eye exam (chief complaint) Presence of intraocular lensType 2 diab with mild nonp rtnop without mclr edema, r eye Apr- 1 Lloyd Yannick. [address] [facility], [address], [place], [place], [id number], [place]. tel:[phone] Referring Provider: Marni Barbosa MD, [address] [facility], [place], [address]. tel:[phone] [facility], [address] [place], [place] [address]st [facility] [address], [place], [place], [id number], [place] tel:[phone] SEC [facility] Professional No Information b-0 0 Grant OD Luis. [address] [place] [address], [address] [place] [address], [place], [address], [place]. tel:[phone] Referring Provider: Marni Barbosa MD, [address] [facility], [place], [address]. tel:[phone] [facility], [facility] [address], [place], [place], [id number], [place] tel:[phone] SEC [facility] Professional Complete Exam (chief complaint) Viral conjunctiviti s of both eyesAllergic conjunctiviti s of both eyesPresence of intraocular lensType 2 diabetes mellitus without complication, without long-term current use of insulin b-0 0 Grant OD Luis. [address] [place] [address], [address] [place] [address], [place], [address], [place]. tel:[phone] Referring Provider: Marni Barbosa MD, [address] [facility], [place], [address]. tel:[phone] [facility], [address] [place] [address] [address], [place], [place], [id number], [place] tel:[phone] SEC Ryan [place] Professional Burning (chief complaint) Viral conjunctiviti s of both eyesAllergic conjunctiviti s of both eyes 0 Grant Batistaic. [address] [facility], [address], [place], [address], [place]. tel:[phone] Referring Provider: Marni Barbosa MD, [address], [place], [address]. tel:[phone] [facility], [address], [place], [place], [id number], [place] tel:[phone] SEC Ryan [place] Professiona l No Information 0 Gabino Lanier. [address] [facility], [address], [place], [place], [address], [place]. tel:[phone] Family History Family Member Type Diagnosis Age [...]
== END 2025-04-21 09:50 | disposition home or self-care (01) ==
LOC: CHSIMG 09:51
PROVIDERS: PCP Family Medicine; Visit Provider Family Medicine
DX: R19.7 Diarrhea, unspecified (principal)
CPT/HCPCS: 74018

== ENCOUNTER 2025-04-23 08:58 | Outpatient (CLI) | payer MEDICARE, SELFPAY ==
--- OUTSIDE RECORDS SUMMARY | 2025-04-23 09:02 | XMS_ITS | Referral Summary ---
Author Organization [facility] [address] Address [address] [place] [address] Phone Care Team Providers Care Hvac Instructor Name Role Phone Marni Barbosa MD Primary Care Provider [phone] Jag Burch MD Unavailable [phone] Homero Ordoñez NP Unavailable [phone] Encounters Date Type Department Care Team Description 04/06/2025 Orders Only [facility] [address] [facility] [address] [place] [address] Sandrine Mann, OD Intermediate uveitis of both eyes (Primary Dx) 03/26/2025 Telephone [facility] [address] [place] [address] Marni Barbosa MD from Last 3 Months Allergies No known active allergies Medications turmeric root extract 500 mg capsuleIndications :Arthritis of knee Take 500 mg by mouth 3 (three) times a day 90 capsule 6 08/22/20 21 Active Additional Information Patient not taking.Reported on 12/25/2024 blood-glucose meter miscIndications:Ty pe 2 diabetes mellitus without complication, without long-term current use of insulin (HCC) Use to test blood glucose once daily. 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 Dispense one touch Verio test strips 100 each 3 07/24/20 24 025 Active atorvastatin (LIPITOR) 40 mg tabletIndications: Type 2 diabetes mellitus with stage 3b chronic kidney disease, without long-term current use of insulin ([facility]),Multiple-typ e hyperlipidemia Take 1 tablet (40 [...] with meals 180 tablet 2 10/03/20 24 Active lisinopriL (PRINIVIL,ZESTRIL) 2.5 mg tablet Take 1 tablet (2.5 mg total) by mouth daily 90 tablet 3 11/13/19 25 Active furosemide (LASIX) 40 mg tablet Take [...] By: Dorian Restrepo MD 09/25/2024 4:27:21 PM TANK SETTER Moderate pulmonary hypertension 11/15/2024 Overview (11/15/2024): Discovered during hospitalization September 2025. Requested advice from Cardiology regarding further workup. Please refer to information under HFpEF Diarrhea 09/23/2024 Diabetic macular edema of left eye 09/23/2024 Assessment & Plan (12/25/2024 7:03 AM TANK SETTER): Stable today. Will follow with OCT after stopping difluprednate drops Assessment & Plan (09/23/2024 9:58 PM TANK SETTER): Resolved today with oral prednisone taper. Will follow with OCT as she has stopped prednisone. UTI (urinary tract infection) 09/22/2024 Assessment & Plan (09/22/2024 3:51 PM TANK SETTER): Acute, found upon recent ER visit s/p [...] admit for UTI/dehydration. -accepted at [facility]. Weakness 09/22/2024 Assessment & Plan (09/22/2024 4:33 PM TANK SETTER): Worse in the last 1-2 weeks but uncontrollable in the last 2 days. Likely related to questionable urosepsis, see plan for UTI above. Dehydration 09/22/2024 Assessment & Plan (09/22/2024 4:39 PM TANK SETTER): Acute, found upon recent CMP done in ER s/p fall 4 days ago. Na 133, chloride 95, creatinine stable. Orthostatic BP dropped almost 30 points upon standing in office today. Oral mucous membranes are pale and dry, skin is pale, turgor is slow. Consulted with Dr. Barbosa in office today, she suggested direct admit, accepted by Dr. Freedman at [facility]. Orthostatic hypotension 09/22/2024 Assessment & Plan (09/22/2024 4:40 PM TANK SETTER): Acute, + in office today. See plan for dehydration below. Accepted for direct admit to [facility]. Intermediate uveitis of both eyes 08/07/2024 Overview (08/19/2024): Diagnosis: Intermediate uveitis both eyes Complications: None Last active: 08/07/24 ou Systemic associations: None Labs: Positive: None Negative/normal: T pallidum antibody and CXR Care Team: Other notes: Referred by Tawanda Fournier Assessment & Plan (12/25/2024 7:02 AM TANK SETTER): She has no active inflammation today. She has had multiple adverse effects from prednisone including falls and hyperglycemia. Will plan for Ozurdex for further therapy if needed.. OK to stay off of steroid drops. Assessment & Plan (09/23/2024 9:53 PM TANK SETTER): She has no active inflammation today after [...] 07/24/2024 Assessment & Plan (12/25/2024 7:01 AM TANK SETTER): She has persistent CME that is stable and non-central OS. Observe at this point, stressed BG control. Assessment & Plan (09/23/2024 9:54 PM TANK SETTER): She is off of oral prednisone and [...] Arch support shoes with metatarsal pad from [employer] Hematoma and contusion 03/09/2023 [...] 06/11/2019 Assessment & Plan (12/09/2019 11:28 AM TANK SETTER): Blood pressure much better controlled. She brought home log and cuff with her to today's visit and blood pressure 120-140 systolic and 70-80 diastolic. We will continue present medication regimen and refills will be sent to pharmacy. Assessment & Plan (11/11/2019 11:33 AM TANK SETTER): Blood pressure remains elevated, but better controlled [...] weeks. Assessment & Plan (11/04/2019 5:05 PM TANK SETTER): With uncontrolled blood pressure upon arrival to [...] 12/04/2023 Assessment & Plan (12/09/2019 12:18 PM TANK SETTER): Patient reports issues of anxiety, tearfulness and depression with coping through her son's cancer and hospice care. Have discussed with patient and we will begin a low dose celexa. She will follow up in 6 weeks to determine effectiveness. She is to call with any questions or concerns. Grief support group encouraged Blurred vision 11/11/2019 08/22/2021 Assessment & Plan (11/11/2019 11:30 AM TANK SETTER): Patient is reporting blurred vision worse in [...] 08/22/2021 Assessment & Plan (11/11/2019 11:29 AM TANK SETTER): Improved s/p antibiotic eye drops. There is concern for possible allergic component as she reports occasional clear discharge and redness. She was encouraged to continue daily allergy pill and to see diesel engine pipe fitter for further evaluation. Assessment & Plan (11/04/2019 5:02 PM TANK SETTER): Patient has erythema and mucoid discharge noted [...] 0.6 oz pur e alcohol) [facility] Utilities Answer Date Recorded In the past 12 months has th e [employer], gas, oil, or water [employer] threatened to shut off services in your [...] often do you attend chur ch or taoism services? Never 09/23/2024 Do you belong to any clubs o r organizations such as restorationism groups, unions, fraternal or athletic groups, or [...] staff should administer the PHQ-9) 1 07/24/2024 [facility] - Occupational Stress Questionnaire Answer Date Recorded [...] any time in the past 12 m [facility], were you homeless or living in [...] on file Legal Sex Female 11:43 AM TANK SETTER Gender Identity Not on file Sexual Orientation Not on file Occupation Industry Job Start Date Job End Date retired Not on file Not on file Not on file Last Filed Vital Signs Vital Sign Reading Time Taken Comments Blood Pressure 139/74 12/25/2024 2:18 PM TANK SETTER Pulse 88 12/25/2024 2:18 PM TANK SETTER Temperature 36.7 C (98.1 F) 10/03/2024 2:53 PM TANK SETTER Respiratory Rate 18 12/25/2024 2:18 PM TANK SETTER Oxygen Saturation 93% 10/03/2024 2:53 PM TANK SETTER Inhaled Oxygen Concentration - - Weight 64.9 kg (143 lb) 12/25/2024 2:18 PM TANK SETTER Height 160 cm (5' 3) 12/25/2024 2:18 PM TANK SETTER Body Mass Index 25.33 12/25/2024 2:18 PM TANK SETTER Plan of Treatment Not on file Procedures Procedure Name Priority Date/Time Associated Diagnosis Comments EGFR Routine 10/03/2024 9:15 AM TANK SETTER HEMOGLOBIN A1C Routine 07/17/2024 8:05 AM CDT Type 2 diabetes mellitus without complication, without long-term current use of insulin (HCC) ALBUMIN CREATININE RATIO, URINE Routine 07/17/2024 8:05 AM CDT Type 2 diabetes mellitus without complication, without long-term current use of insulin (HCC) DEXA AXIAL SKELETON BONE DENSITY 1 OR MORE SITES Schedule Routine, Read Routine (OP Routine) 08/31/2023 12:55 PM TANK SETTER Menopause LIPID PANEL Routine 04/20/2020 12:37 PM CDT Benign hypertension Multiple-type hyperlipidemia from Last 3 Months or Most Recently Relevant to Health Maintenance Results * eGFR (10/03/2024 9:15 AM TANK SETTER) eGFR 63 >=60 mL/min/1. 73 m2 Comment: [...] last reviewed 2021. Blood 10/03/2024 9:15 AM TANK SETTER 10/03/2024 9:28 AM TANK SETTER us Geo Khanna MD LAB BLOOD ORDERABLES Final Resu lt TAYO [facility] ([facility] Department [place] [address] * Albumin Creatinine Ratio, Urine (07/17/2024 8:05 AM CDT) Albumin Ur 13.7 mg/L Comment: Interpretive Data No reference range established. Current interpretive data was last revised 2019. Testing performed by: [facility], [address] [place] [address], [place]., [address] Creatinine Ur 121.0 mg/dL TAYO Comment: Interpretive Data No reference range established. Current interpretive data was last revised 2019. Testing performed by: [address] [address] Albumin Creatinine Ratio, Ur 11 1 - 29 mg/g TAYO Comment:Testing performed by : [address] [address] Urine 07/17/2024 8:05 AM CDT 07/17/2024 12:44 PM CDT us Marni Barbosa MD LAB URINE ORDERABLES Final Result Performing Organization Address [facility] [employer] Phone Number FRANCESEMA [id number] [place] [address] [email or web address] [address] * (ABNORMAL) Hemoglobin A1c (07/17/2024 8:05 AM CDT) Hgb A1C 6.8(H) 4.0 - 5.6 % Comment:Testing performed by : [address] [address] Estimated Average Glucose 148 mg/dL TAYO Comment: The ADA recommends reporting an estimated Average Glucose (eAG) with all Hemoglobin A1c results using the equation derived from a study of 507 normal and diabetic adults. Minority populations were underrepresented and children were not included. (Diabetes Care 31:4628-4710, 2008). The eAG is not equivalent to a fasting glucose. Testing performed by: [address] [address] Blood 07/17/2024 8:05 AM CDT 07/17/2024 12:44 PM CDT us Marni Barbosa MD LAB BLOOD ORDERABLES Final Result Performing Organization Address [facility] [employer] Phone Number TAYO [id number] [facility] [email or web address] [address] * Dexa Axial Skeleton Bone Density 1 or 2 Site (08/31/2023 12:55 PM TANK SETTER) Anatomical Region Laterality Modality Body N/A Other 08/31/2023 1:23 PM TANK SETTER Narrative 08/31/2023 1:25 PM TANK SETTER EXAM DESCRIPTION: DEXA AXIAL SKELETON BONE DENSITY 1 OR MORE SITES REASON FOR STUDY: 82 y/o year old F with given history of: menopause Osteoporosis screening Post menopausal Mental Health Counselor/Model: [employer] SL (S/N [id number]) CLINICAL INFORMATION: Current height: 65.5 inches Maximum [...] Collin Vargas M.D. MF: HECTOR Report ID: [id number] Reading Location: [place] [address] Procedure Note Collin Vargas MD - 08/31/2023 EXAM DESCRIPTION: DEXA AXIAL SKELETON BONE DENSITY 1 OR MORE SITES REASON FOR STUDY: 82 y/o year old F with given history of: menopause Osteoporosis screening Post menopausal Mental Health Counselor/Model: [employer]lu[employer] SL (S/N [id number]) CLINICAL INFORMATION: Current height: 65.5 inches Maximum [...] Collin Vargas M.D. MF: MF Report ID: [id number] Reading Location: [place] [address] Marni Barbosa MD IMG DXA PROCEDURES Final [...] LAB BLOOD ORDERABL ES Final Result TAYO [address] [address] [place] [address] from Last 3 Months or Most Recently Relevant to Health Maintenance Insurance MEDICARE [employer] MEDICARE [employer] 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
--- OUTSIDE RECORDS SUMMARY | 2025-04-23 09:02 | XMS_ITS | Clinical Summary ---
Author Organization [facility] [place], [place] [address] [place] [address] Phone Care Team Providers Care Cattle Care Worker Name Role Phone Marni Barbosa MD Primary Care Provider [phone] Jag Burch MD Unavailable Homero Ordoñez NP Unavailable [phone] Allergies No known active allergies Medications turmeric root extract 500 mg capsuleIndications :Arthritis of knee Take 500 mg by mouth 3 (three) times a day 90 capsule 6 08/22/20 21 Active Additional Information Patient not taking.Reported on 12/25/2024 blood-glucose meter miscIndications:Ty pe 2 diabetes mellitus without complication, without long-term current use of insulin ([facility]) Use to test blood glucose [...] 1 tablet (88 mcg total) by mouth [employer] before breakfast 90 tablet 2 07/24/20 24 Active blood glucose diagnostic (glucose blood) stripIndications:T ype 2 diabetes mellitus with stage 3b chronic kidney disease, without long-term current use of insulin ([facility]) Use to test blood glucose once daily. Dispense one touch Verio test strips 100 each 3 07/24/20 24 025 Active atorvastatin (LIPITOR) 40 mg tabletIndications: Type 2 diabetes mellitus with stage 3b chronic kidney disease, without long-term current use of insulin ([facility]),Multiple-typ e hyperlipidemia Take 1 tablet [...] By: Dorian Restrepo MD 09/25/2024 4:27:21 PM ANCILLARY SERVICES MANAGER Moderate pulmonary hypertension 11/15/2024 Overview (11/15/2024): Discovered during hospitalization September 2025. Requested advice from Cardiology regarding further workup. Please refer to information under HFpEF Diarrhea 09/23/2024 Diabetic macular edema of left eye 09/23/2024 Assessment & Plan (12/25/2024 7:03 AM ANCILLARY SERVICES MANAGER): Stable today. Will follow with OCT after stopping difluprednate drops Assessment & Plan (09/23/2024 9:58 PM ANCILLARY SERVICES MANAGER): Resolved today with oral prednisone taper. Will follow with OCT as she has stopped prednisone. UTI (urinary tract infection) 09/22/2024 Assessment & Plan (09/22/2024 3:51 PM ANCILLARY SERVICES MANAGER): Acute, found upon recent ER visit [...] recommends direct admit for UTI/dehydration. -accepted at [facility]. Weakness 09/22/2024 Assessment & Plan (09/22/2024 4:33 PM ANCILLARY SERVICES MANAGER): Worse in the last 1-2 weeks but uncontrollable in the last 2 days. Likely related to questionable urosepsis, see plan for UTI above. Dehydration 09/22/2024 Assessment & Plan (09/22/2024 4:39 PM ANCILLARY SERVICES MANAGER): Acute, found upon recent CMP done in ER s/p fall 4 days ago. Na 133, chloride 95, creatinine stable. Orthostatic BP dropped almost 30 points upon standing in office today. Oral mucous membranes are pale and dry, skin is pale, turgor is slow. Consulted with Dr. Barbosa in office today, she suggested direct admit, accepted by Dr. Freedman at [facility]. Orthostatic hypotension 09/22/2024 Assessment & Plan (09/22/2024 4:40 PM ANCILLARY SERVICES MANAGER): Acute, + in office today. See plan for dehydration below. Accepted for direct admit to [facility]. 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 She has had multiple adverse effects from prednisone including falls and hyperglycemia. Will plan for Ozurdex for further therapy if needed.. OK to stay off of steroid drops. Assessment & Plan (09/23/2024 9:53 PM ANCILLARY SERVICES MANAGER): She has no active inflammation today [...] 07/24/2024 Assessment & Plan (12/25/2024 7:01 AM ANCILLARY SERVICES MANAGER): She has persistent CME that is stable and non-central OS. Observe at this point, stressed BG control. Assessment & Plan (09/23/2024 9:54 PM ANCILLARY SERVICES MANAGER): She is off of oral prednisone [...] Arch support shoes with metatarsal pad from [email or web address] Hematoma and contusion 03/09/2023 [...] 06/11/2019 Assessment & Plan (12/09/2019 11:28 AM ANCILLARY SERVICES MANAGER): Blood pressure much better controlled. She brought home log and cuff with her to today's visit and blood pressure 120-140 systolic and 70-80 diastolic. We will continue present medication regimen and refills will be sent to pharmacy. Assessment & Plan (11/11/2019 11:33 AM ANCILLARY SERVICES MANAGER): Blood pressure remains elevated, but better [...] weeks. Assessment & Plan (11/04/2019 5:05 PM ANCILLARY SERVICES MANAGER): With uncontrolled blood pressure upon arrival [...] 12/04/2023 Assessment & Plan (12/09/2019 12:18 PM ANCILLARY SERVICES MANAGER): Patient reports issues of anxiety, tearfulness and depression with coping through her son's cancer and hospice care. Have discussed with patient and we will begin a low dose celexa. She will follow up in 6 weeks to determine effectiveness. She is to call with any questions or concerns. Grief support group encouraged Blurred vision 11/11/2019 08/22/2021 Assessment & Plan (11/11/2019 11:30 AM ANCILLARY SERVICES MANAGER): Patient is reporting blurred vision worse [...] 08/22/2021 Assessment & Plan (11/11/2019 11:29 AM ANCILLARY SERVICES MANAGER): Improved s/p antibiotic eye drops. There is concern for possible allergic component as she reports occasional clear discharge and redness. She was encouraged to continue daily allergy pill and to see tuckpointer for further evaluation. Assessment & Plan (11/04/2019 5:02 PM ANCILLARY SERVICES MANAGER): Patient has erythema and mucoid discharge noted in left lower conjunctiva, with concern for possible bacterial conjunctivitis. Antibiotic ophthalmic solution sent. Patient instructed to use 2 drops in left eye QID x 5 days. If symptoms worsen or persist she was instructed to call. Encounters Date Type Department Care Team Description 04/06/2025 Orders Only [facility] [address] [facility] [address] [place] [address] Sandrine Mann, CALI Intermediate uveitis of both eyes (Primary Dx) 03/26/2025 Telephone [facility] [address] [place] [address] Marni Barbosa MD from Last 3 Months Immunizations Immunization Administration [...] COLONOSCOPY 10/22/2016 - 10/21/2017 Single polyp in [place] Medical History Medical History Date Comments Diabetes [...] drink = 0.6 oz pur e alcohol) [facility] Utilities Answer Date Recorded In the [...] often do you attend chur ch or alevism services? Never 09/23/2024 Do you belong to any clubs o r organizations such as baptism groups, unions, fraternal or athletic groups, or [...] staff should administer the PHQ-9) 1 07/24/2024 [facility] - Occupational [...] any time in the past 12 m [facility], were you homeless or living in a retirement (including now)? No 09/23/2024 Personal Safety Answer Date Recorded Have you ever been in or are you currently in a harmful physical or emotional relationship or is someone making you feel afraid or unsafe? Denies 09/22/2024 Comments No Sex and Gender Information Value Date Recorded Sex Assigned at Not on file Legal Sex Female 11:43 AM ANCILLARY SERVICES MANAGER Gender Identity Not on file Sexual [...] Comments Blood Pressure 139/74 12/25/2024 2:18 PM ANCILLARY SERVICES MANAGER Pulse 88 12/25/2024 2:18 PM ANCILLARY SERVICES MANAGER Temperature 36.7 C (98.1 F) 10/03/2024 2:53 PM ANCILLARY SERVICES MANAGER Respiratory Rate 18 12/25/2024 2:18 PM ANCILLARY SERVICES MANAGER Oxygen Saturation 93% 10/03/2024 2:53 PM ANCILLARY SERVICES MANAGER Inhaled Oxygen Concentration - - Weight 64.9 kg (143 lb) 12/25/2024 2:18 PM ANCILLARY SERVICES MANAGER Height 160 cm (5' 3) 12/25/2024 2:18 PM ANCILLARY SERVICES MANAGER Body Mass Index 25.33 12/25/2024 2:18 PM ANCILLARY SERVICES MANAGER Plan of Treatment Health Maintenance Due Date [...] Diagnosis Comments EGFR Routine 10/03/2024 9:15 AM ANCILLARY SERVICES MANAGER HEMOGLOBIN A1C Routine 07/17/2024 8:05 AM CDT Type 2 diabetes mellitus without complication, without long-term current use of insulin (HCC) ALBUMIN CREATININE RATIO, URINE Routine 07/17/2024 8:05 AM CDT Type 2 diabetes mellitus without complication, without long-term current use of insulin (HCC) DEXA AXIAL SKELETON BONE DENSITY 1 OR MORE SITES Schedule Routine, Read Routine (OP Routine) 08/31/2023 12:55 PM ANCILLARY SERVICES MANAGER Menopause LIPID PANEL Routine 04/20/2020 12:37 PM CDT Benign hypertension Multiple-type hyperlipidemia from Last 3 Months or Most Recently Relevant to Health Maintenance Results * eGFR (10/03/2024 9:15 AM ANCILLARY SERVICES MANAGER) eGFR 63 >=60 mL/min/1. 73 m2 [...] last reviewed 2021. Blood 10/03/2024 9:15 AM ANCILLARY SERVICES MANAGER 10/03/2024 9:28 AM ANCILLARY SERVICES MANAGER us Geo Khanna MD LAB BLOOD ORDERABLES Final Resu lt TAYO [facility] ([place]) [address] [facility] Department [place] [address] * Albumin Creatinine Ratio, Urine (07/17/2024 8:05 AM CDT) Albumin Ur 13.7 mg/L Comment: Interpretive Data No reference range established. Current interpretive data was last revised 2019. Testing performed by: [facility], [address] [place] [address]., [address] Creatinine Ur 121.0 mg/dL TAYO Comment: Interpretive Data No reference range established. Current interpretive data was last revised 2019. Testing performed by: [address] [address] Albumin Creatinine Ratio, Ur 11 1 - 29 mg/g TAYO Comment:Testing performed by : [address] [address] Urine 07/17/2024 8:05 AM CDT 07/17/2024 12:44 PM CDT Marni Barbosa MD LAB URINE ORDERABLES Final Result Performing Organization Address City/[facility] Co de Phone Number TAYO [address] Department [place] [address] * (ABNORMAL) Hemoglobin A1c (07/17/2024 8:05 AM CDT) Hgb A1C 6.8(H) 4.0 - 5.6 % Comment:Testing performed by : [address] [address] Estimated Average Glucose 148 mg/dL TAYO Comment: The ADA recommends reporting an estimated Average Glucose (eAG) with all Hemoglobin A1c results using the equation derived from a study of 507 normal and diabetic adults. Minority populations were underrepresented and children were not included. (Diabetes Care 31:9399-8298, 2008). The eAG is not equivalent to a fasting glucose. Testing performed by: [address] [address] Blood 07/17/2024 8:05 AM CDT 07/17/2024 12:44 PM CDT us Marni Barbosa MD LAB BLOOD ORDERABLES Final Result TAYO [place] [address] [address] Department [place] [address] * Dexa Axial Skeleton Bone Density 1 or 2 Site (08/31/2023 12:55 PM ANCILLARY SERVICES MANAGER) Anatomical Region Laterality Modality Body N/A Other 08/31/2023 1:23 PM ANCILLARY SERVICES MANAGER Narrative 08/31/2023 1:25 PM ANCILLARY SERVICES MANAGER EXAM DESCRIPTION: DEXA AXIAL SKELETON BONE DENSITY 1 OR MORE SITES REASON FOR STUDY: 82 y/o year old F with given history of: menopause Osteoporosis screening Post menopausal Out And Out Cigar Maker Hand/Model: [employer] Discovery SL ([id number]/N [id number]) CLINICAL INFORMATION: Current height: 65.5 inches Maximum [...] Collin Vargas M.D. MF: HECTOR Report ID: [id number] Reading Location: [id number] Procedure Note Collin Vargas MD - 08/31/2023 EXAM DESCRIPTION: DEXA AXIAL SKELETON BONE DENSITY 1 OR MORE SITES REASON FOR STUDY: 82 y/o year old F with given history of: menopause Osteoporosis screening Post menopausal Out And Out Cigar Maker Hand/Model: [employer] Discovery SL ([id number]/N [id number]) CLINICAL INFORMATION: Current height: 65.5 inches Maximum [...] Collin Vargas M.D. MF: HECTOR Report ID: [id number] Reading Location: [place] [address] us Marni Barbosa MD IMG DXA PROCEDURES Final [...] on 2018. HDL 37(L) >=40 mg/dL TAYO [place] Comment: Interpretive Data Ages < or = [...] 04/20/2020 12:39 PM CDT us Luci Barcenas ANALYTICAL LAB TECHNICIAN LAB BLOOD ORDER[place] [address] [place] Department of Laboratories [place], [place] [id number] from Last 3 Months or Most Recently Relevant to Health Maintenance Insurance MEDICARE [employer] MEDICARE [employer] MEDICARE [facility] Address: [facility] [address] [place] [address] [employer] Advance Directives For more information, please contact: [phone] Documents on File Type Date Recorded 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
--- OUTSIDE RECORDS SUMMARY | 2025-04-23 09:02 | XMS_ITS | Continuity of Care Document ---
Author Organization [facility] Address [address] [place] [address] Dr Atkins [address] [place] [address] Phone Care Team Providers Care Field Crop Harvest Contractor Name Role Phone Clementine Low OD Unavailable [...] route every day 10 MG - Active Glucophage 500 mg tablet take [...] Diagnoses Date Provider Providers Copied on Encounter [facility], [address] [place] [address] [address], [place], [place], [id number], tel:[phone] SEC [place] Professional 2 week s/p YAG PC (chief complaint) Post op visit 3 Devante CALI Clementine. [facility] [employer], [address], [place], [place], [address], [place]. tel:[phone] Referring Provider: Marni Barbosa MD, [address], [place], [address]. tel:[phone] [facility], [facility] [employer] [address], [place], [place], [id number], tel:[phone] SEC [place] Professional YAG PC (chief complaint) Presence of intraocular lensOther secondary cataract, left eye Mar-3 3 Gabino Lanier. [address] [facility] [place], [address], [place]. tel:[phone] Referring Provider: Marni Barbosa MD, [address] [place], [address]. tel:[phone] Office/outpa tient Visit, Est [facility], [facility] [employer] [address], [place], [place], [address], [place] tel:[phone] SEC [facility] [place] Professional Diabetic eye exam (chief complaint) Presence of intraocular lensType 2 diab with mild nonp rtnop without mclr edema, r eyeVitreous degeneration, right eyeOther secondary cataract, bilateralDry eye syndrome of bilateral lacrimal glandsOther secondary cataract, right eye Mar-0 3 Gabino Lanier. [address] [facility], [facility] [place], [place], [id number], [place]. tel:[phone] Referring Provider: Marni Barbosa MD, [address], [place], [address]. tel:[phone] [facility], [address] [place] [address] [address], [place], [place], [address], [place] tel:[phone] SEC [facility] Professional diabetic eye exam (chief complaint) Presence of intraocular lensType 2 diab with mild nonp rtnop without mclr edema, r eye Apr- 1 Lloyd Yannick. [address] [facility], [address], [place], [place], [address], [place]. tel:[phone] Referring Provider: Marni Barbosa MD, [address], [place], [address]. tel:[phone] [facility], [address] [place], [place] [address]st [facility] [address], [place], [place], [id number], [place] tel:[phone] SEC [facility] Professional No Information b-0 0 Grant OD Luis. [address] [place] [address], [address] [place] [address], [place], [address], [place]. tel:[phone] Referring Provider: Marni Barbosa MD, [address], [place], [address]. tel:[phone] [facility], [facility] [employer] [address], [place], [place], [address], [place] tel:[phone] SEC [facility] Professional Complete Exam (chief complaint) Viral conjunctiviti s of both eyesAllergic conjunctiviti s of both eyesPresence of intraocular lensType 2 diabetes mellitus without complication, without long-term current use of insulin b-0 0 Grant OD Luis. [address] [place] [address], [address] [place] [address], [place], [address], [place]. tel:[phone] Referring Provider: Marni Barbosa MD, [address], [place], [address]. tel:[phone] [facility], [address] [place] [address] [address], [place], [place], [address], [place] tel:[phone] SEC [place] Professional Burning (chief complaint) Viral conjunctiviti s of both eyesAllergic conjunctiviti s of both eyes 0 Grant Batistaic. [address] [facility], [address]th Floor, [place], [address], [place]. tel:[phone] Referring Provider: Marni Barbosa MD, [address], [place], [address]. tel:[phone] [facility], [address], [place], [place], [address], [place] tel:[phone] SEC [place] Professiona l No Information 0 Gabino Lanier. [address] [facility], [address], [place], [place], [address], [place]. tel:[phone] Family History Family Member Type Diagnosis Age [...]
[2025-04-23 09:27] LABS: Hematocrit 36.1 % (35.0-42.0); Hemoglobin 11.2 g/dL (11.7-13.8); Immature Granulocyte Percent A 0.3 % (0.0-0.0); Lymphocytes Absolute Auto 1.93 K/mm3 (1.10-4.50); Mean Corpuscular HGB Conc 31.0 g/dL (32-36); Mean Corpuscular Hemoglobin 27.7 pg (27.0-31.0); Mean Corpuscular Volume 89.1 fL (78.0-102.0); Nucleated Red Blood Cells Absolute Auto 0.00 K/mm3 (0.00-0.00); Nucleated Red Blood Cells Perc 0.0 % (0-0.0); Platelet Count Result 220 K/mm3 (150-420); Red Blood Count 4.05 M/mm3 (4.20-5.40); White Blood Count 6.4 K/mm3 (4.8-10.8)
[2025-04-23 09:52] LABS: Alanine Aminotransferase 10 U/L (6-35); Albumin Level 4.0 g/dL (3.5-5.1); Alkaline Phosphatase 92 U/L (38-126); Amylase 76 U/L (30-110); Anion Gap 8 mmol/L (4-12); Aspartate Amino Transferase 21 U/L (14-36); Bilirubin,Total 0.4 mg/dL (0.2-1.3); Blood Urea Nitrogen 36 mg/dL (7-17); Calcium 9.2 mg/dL (8.4-10.2); Carbon Dioxide 25 mmol/L (22-30); Chloride 105 mmol/L (98-107); Estimated Glomerular Filt Rate 45; Glucose 220 mg/dL (65-110); Lipase 86 U/L (23-300); Osmolality Calculated 301 mOsm/kg (285-295); Potassium 4.3 mmol/L (3.4-5.0); Sodium 138 mmol/L (137-145); Total Protein 6.4 g/dL (6.3-8.2)
[2025-04-23 10:09] LABS: Free T4 Free Thyroxine. 1.22 ng/dL (0.78-2.19)
[2025-04-23 10:23] LABS: Thyroid Stimulating Hormone 2.260 uIU/mL (0.465-4.680)
== END 2025-04-23 08:59 | disposition home or self-care (01) ==
PROVIDERS: PCP Family Medicine; Visit Provider Family Medicine
DX: I50.9 Heart failure, unspecified (principal)
CPT/HCPCS: 36415; 80053; 82150; 83690; 84439; 84443; 85025

== ENCOUNTER 2025-04-28 08:43 | Outpatient (CLI) | payer MEDICARE, SELFPAY ==
--- NOTE | ~2025-04-28 | CT_ITS ---
Non-contrast CT scan of the Abdomen and Pelvis Clinical indication: Diarrhea, cramping Technique: 2.5 mm axial scans were obtained through the abdomen and pelvis without intravenous or or al contrast. Dose reduction technique was used on this scan by utilizing automated exposure control a nd iterative reconstruction technique. The dose-length product (DLP) was 464.45 mGy-cm. Findings: Images through the lung bases are clear. Moderate to large hiatal hernia present. There is no evidence of renal or ureteral calculi. The kidneys and the ureters are nondilated. The liver, spleen, pancreas, and adrenals appear normal. Cholecystectomy clips are present. There are atherosclerotic calcifications of the aorta. . There is no evidence of bowel obstruction. Images through the pelvis were performed. There is no evidence of ascites or lymphadenopathy. Urinary bladder unremarkable. Status post hysterectomy. No pelvic mass seen. Impression: Moderate to large hiatal hernia. No acute abnormality seen. Reviewed, dictated and finalized at [facility]. Impression: Moderate to large hiatal hernia. No acute abnormality seen.
--- OUTSIDE RECORDS SUMMARY | 2025-04-28 08:47 | XMS_ITS | Clinical Summary ---
Author Organization [facility] [address] [place] [address] Phone Care Team Providers Care Insurance Billing Specialist Name Role Phone Marni Barbosa MD Primary Care Provider [phone] Jag Burch MD Unavailable [phone] Homero Ordoñez NP Unavailable [phone] Allergies No known active allergies Medications turmeric root extract 500 mg capsuleIndications :Arthritis of knee Take 500 mg by mouth 3 (three) times a day 90 capsule 6 08/22/20 21 Active Additional Information Patient not taking.Reported on 12/25/2024 blood-glucose meter miscIndications:Ty pe 2 diabetes mellitus without complication, without long-term current use of insulin ([facility]) Use to test blood glucose [...] 1 tablet (88 mcg total) by mouth bond writer before breakfast 90 tablet 2 07/24/20 24 Active blood glucose diagnostic (glucose blood) stripIndications:T ype 2 diabetes mellitus with stage 3b chronic kidney disease, without long-term current use of insulin ([facility]) Use to test blood glucose once daily. Dispense one touch Verio test strips 100 each 3 07/24/20 24 025 Active atorvastatin (LIPITOR) 40 mg tabletIndications: Type 2 diabetes mellitus with stage 3b chronic kidney disease, without long-term current use of insulin ([facility]),Multiple-typ e hyperlipidemia Take 1 tablet [...] By: Dorian Restrepo MD 09/25/2024 4:27:21 PM MORTARMAN Moderate pulmonary hypertension 11/15/2024 Overview (11/15/2024): Discovered during hospitalization September 2025. Requested advice from Cardiology regarding further workup. Please refer to information under HFpEF Diarrhea 09/23/2024 Diabetic macular edema of left eye 09/23/2024 Assessment & Plan (12/25/2024 7:03 AM MORTARMAN): Stable today. Will follow with OCT after stopping difluprednate drops Assessment & Plan (09/23/2024 9:58 PM MORTARMAN): Resolved today with oral prednisone taper. Will follow with OCT as she has stopped prednisone. UTI (urinary tract infection) 09/22/2024 Assessment & Plan (09/22/2024 3:51 PM MORTARMAN): Acute, found upon recent ER visit s/p fall on 09/18/24. Was given macrobid at first but culture came back resistant and was started on keflex on 09/20/24. Patient appears ill, afebrile, BP stable while sitting but orthostatic dropped almost 30 points. No acute abdominal findings or CVA tenderness. Consulted with Dr. Barbosa in office today, she recommends direct admit for UTI/dehydration. -accepted at [facility]. Weakness 09/22/2024 Assessment & Plan (09/22/2024 4:33 PM MORTARMAN): Worse in the last 1-2 weeks but uncontrollable in the last 2 days. Likely related to questionable urosepsis, see plan for UTI above. Dehydration 09/22/2024 Assessment & Plan (09/22/2024 4:39 PM MORTARMAN): Acute, found upon recent CMP done in ER s/p fall 4 days ago. Na 133, chloride 95, creatinine stable. Orthostatic BP dropped almost 30 points upon standing in office today. Oral mucous membranes are pale and dry, skin is pale, turgor is slow. Consulted with Dr. Barbosa in office today, she suggested direct admit, accepted by Dr. Freedman at [facility]. Orthostatic hypotension 09/22/2024 Assessment & Plan (09/22/2024 4:40 PM MORTARMAN): Acute, + in office today. See plan for dehydration below. Accepted for direct admit to [facility]. 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 She has had multiple adverse effects from prednisone including falls and hyperglycemia. Will plan for Ozurdex for further therapy if needed.. OK to stay off of steroid drops. Assessment & Plan (09/23/2024 9:53 PM MORTARMAN): She has no active inflammation today after [...] 07/24/2024 Assessment & Plan (12/25/2024 7:01 AM MORTARMAN): She has persistent CME that is stable and non-central OS. Observe at this point, stressed BG control. Assessment & Plan (09/23/2024 9:54 PM MORTARMAN): She is off of oral prednisone and [...] Arch support shoes with metatarsal pad from [employer] Hematoma and contusion 03/09/2023 [...] 06/11/2019 Assessment & Plan (12/09/2019 11:28 AM MORTARMAN): Blood pressure much better controlled. She brought home log and cuff with her to today's visit and blood pressure 120-140 systolic and 70-80 diastolic. We will continue present medication regimen and refills will be sent to pharmacy. Assessment & Plan (11/11/2019 11:33 AM MORTARMAN): Blood pressure remains elevated, but better controlled [...] weeks. Assessment & Plan (11/04/2019 5:05 PM MORTARMAN): With uncontrolled blood pressure upon arrival to [...] 12/04/2023 Assessment & Plan (12/09/2019 12:18 PM MORTARMAN): Patient reports issues of anxiety, tearfulness and depression with coping through her son's cancer and hospice care. Have discussed with patient and we will begin a low dose celexa. She will follow up in 6 weeks to determine effectiveness. She is to call with any questions or concerns. Grief support group encouraged Blurred vision 11/11/2019 08/22/2021 Assessment & Plan (11/11/2019 11:30 AM MORTARMAN): Patient is reporting blurred vision worse in [...] 08/22/2021 Assessment & Plan (11/11/2019 11:29 AM MORTARMAN): Improved s/p antibiotic eye drops. There is concern for possible allergic component as she reports occasional clear discharge and redness. She was encouraged to continue daily allergy pill and to see textile machinery instructor for further evaluation. Assessment & Plan (11/04/2019 5:02 PM MORTARMAN): Patient has erythema and mucoid discharge noted in left lower conjunctiva, with concern for possible bacterial conjunctivitis. Antibiotic ophthalmic solution sent. Patient instructed to use 2 drops in left eye QID x 5 days. If symptoms worsen or persist she was instructed to call. Encounters Date Type Department Care Team Description 04/06/2025 Orders Only [facility] [address] [place] [address] Sandrine Mann, CALI Intermediate uveitis of both eyes (Primary Dx) 03/26/2025 Telephone [facility] [address] [place] [address] Marni Barbosa MD from Last [...] COLONOSCOPY 10/22/2016 - 10/21/2017 Single polyp in [place] Medical History Medical History Date Comments Diabetes [...] drink = 0.6 oz pur e alcohol) [facility] Utilities Answer Date Recorded In the [...] often do you attend chur ch or pentecostalism services? Never 09/23/2024 Do you belong to any clubs o r organizations such as holiness groups, unions, fraternal or athletic groups, or [...] should administer the PHQ-9) 1 07/24/2024 [facility] - Occupational [...] any time in the past 12 m [facility], were you homeless or living in a [...] on file Legal Sex Female 11:43 AM MORTARMAN Gender Identity Not on file Sexual Orientation [...] Comments Blood Pressure 139/74 12/25/2024 2:18 PM MORTARMAN Pulse 88 12/25/2024 2:18 PM MORTARMAN Temperature 36.7 C (98.1 F) 10/03/2024 2:53 PM MORTARMAN Respiratory Rate 18 12/25/2024 2:18 PM MORTARMAN Oxygen Saturation 93% 10/03/2024 2:53 PM MORTARMAN Inhaled Oxygen Concentration - - Weight 64.9 kg (143 lb) 12/25/2024 2:18 PM MORTARMAN Height 160 cm (5' 3) 12/25/2024 2:18 PM MORTARMAN Body Mass Index 25.33 12/25/2024 2:18 PM MORTARMAN Plan of Treatment Health Maintenance Due Date [...] Diagnosis Comments EGFR Routine 10/03/2024 9:15 AM MORTARMAN HEMOGLOBIN A1C Routine 07/17/2024 8:05 AM CDT Type 2 diabetes mellitus without complication, without long-term current use of insulin ([facility]) ALBUMIN CREATININE RATIO, URINE Routine 07/17/2024 8:05 AM CDT Type 2 diabetes mellitus without complication, without long-term current use of insulin ([facility]) DEXA AXIAL SKELETON BONE DENSITY 1 OR MORE SITES Schedule Routine, Read Routine (OP Routine) 08/31/2023 12:55 PM MORTARMAN Menopause LIPID PANEL Routine 04/20/2020 12:37 PM CDT Benign hypertension Multiple-type hyperlipidemia from Last 3 Months or Most Recently Relevant to Health Maintenance Results * eGFR (10/03/2024 9:15 AM MORTARMAN) eGFR 63 >=60 mL/min/1. 73 m2 Comment: [...] last reviewed 2021. Blood 10/03/2024 9:15 AM MORTARMAN 10/03/2024 9:28 AM MORTARMAN us Geo Khanna MD LAB BLOOD ORDERABLES Final Resu lt TAYO [facility] ([place]) [address] [facility] Department [place] [address] * Albumin Creatinine Ratio, Urine (07/17/2024 8:05 AM CDT) Albumin Ur 13.7 mg/L Comment: Interpretive Data No reference range established. Current interpretive data was last revised 2019. Testing performed by: [facility], [address] [place] [address]., [address] Creatinine Ur 121.0 mg/dL TAYO Comment: Interpretive Data No reference range established. Current interpretive data was last revised 2019. Testing performed by: [address] [address] Albumin Creatinine Ratio, Ur 11 1 - 29 mg/g TAYO Comment:Testing performed by : [address] [address] Urine 07/17/2024 8:05 AM CDT 07/17/2024 12:44 PM CDT Marni Barbosa MD LAB URINE ORDERABLES Final Result Performing Organization Address City/[facility] Co de Phone Number TAYO [address] Department [place] [address] * (ABNORMAL) Hemoglobin A1c (07/17/2024 8:05 AM CDT) Hgb A1C 6.8(H) 4.0 - 5.6 % Comment:Testing performed by : [address] [address] Estimated Average Glucose 148 mg/dL TAYO Comment: The ADA recommends reporting an estimated Average Glucose (eAG) with all Hemoglobin A1c results using the equation derived from a study of 507 normal and diabetic adults. Minority populations were underrepresented and children were not included. (Diabetes Care 31:0281-3772, 2008). The eAG is not equivalent to a fasting glucose. 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 MF: HECTOR Report ID: [id number] Reading Location: [place] [address] us Marni Barbosa MD IMG DXA PROCEDURES [...] 04/20/2020 12:39 PM CDT us Luci Barcenas WAFER CLEANER LAB BLOOD ORDER[place] [address] [place] Department of Laboratories [place], [place] [id number] from Last 3 Months or Most Recently Relevant to Health Maintenance Insurance MEDICARE Reviews42 MEDICARE Reviews42 MEDICARE [facility] Address: [facility] [address] [place] [address] Reviews42 Advance Directives For more information, please contact: [phone] Documents on File Type Date Recorded Patient Manager Regional Sales Expl anation ADVANCE DIRECTIVE 04/30/2019 DNR ADVANCE DIRECTIVE 04/30/2019 POWER OF A [employer] * Full Code (Latest Code Status on File) Date Activated Date Inactivated Comments 09/22/2024 3:49 PM 10/03/2024 8:12 PM Care Teams Insurance Billing Specialist Relationship Specialty Start Date End Date Marni Barbosa MD PCP - General Internal Medicine 03/18/19 Jag Burch MD [address] [place] [address] Ophthalmology 07/24/24 Homero Ordoñez NP [address] [place] [address] Nurse Practitioner Internal Medicine 11/13/24
--- OUTSIDE RECORDS SUMMARY | 2025-04-28 08:47 | XMS_ITS | Continuity of Care Document ---
Author Organization [facility] Address [address] [place] [address] Dr Atkins [address] [place] [address] Phone Care Team Providers Care Burning Machine Operator Name Role Phone Clementine Low OD Unavailable [...] Date Provider Providers Copied on Encounter [facility], [address] [place] [address] [address], [place], [place], [id number], tel:[phone] SEC [place] Professional 2 week s/p YAG PC (chief complaint) Post op visit 3 Devante CALI Clementine. [facility] [address], [address], [place], [place], [id number], [place]. tel:[phone] Referring Provider: Marni Barbosa MD, [address], [place], [address]. tel:[phone] [facility], [facility] [address], [place], [place], [id number], tel:[phone] SEC [place] Professional YAG PC (chief complaint) Presence of intraocular lensOther secondary cataract, left eye Mar-3 3 Gabino Lanier. [address] [facility], [facility] [place], [id number], [place]. tel:[phone] Referring Provider: Marni Barbosa MD, [address] [place], [address]. tel:[phone] Office/outpa tient Visit, Est [facility], [facility] [address], [place], [place], [id number], [place] tel:[phone] SEC [place] Professional Diabetic eye exam (chief complaint) Presence of intraocular lensType 2 diab with mild nonp rtnop without mclr edema, r eyeVitreous degeneration, right eyeOther secondary cataract, bilateralDry eye syndrome of bilateral lacrimal glandsOther secondary cataract, right eye Mar-0 3 Gabino Lanier. [address] [facility], [facility] [place], [place], [id number], [place]. tel:[phone] Referring Provider: Marni Barbosa MD, [address], [place], [address]. tel:[phone] [facility], [address] [place] [address] [address], [place], [place], [id number], [place] tel:[phone] SEC [facility] Professional diabetic eye exam (chief complaint) Presence of intraocular lensType 2 diab with mild nonp rtnop without mclr edema, r eye Apr- 1 Lloyd Yannick. [address] [facility], [address], [place], [place], [id number], [place]. tel:[phone] Referring Provider: Marni Barbosa MD, [address], [place], [address]. tel:[phone] [facility], [address] [place], [place] [address]st [facility] [address], [place], [place], [id number], [place] tel:[phone] SEC [facility] Professional No Information b-0 0 Grant OD Luis. [address] [place] [address], [address] [place] [address], [place], [address], [place]. tel:[phone] Referring Provider: Marni Barbosa MD, [address], [place], [address]. tel:[phone] [facility], [facility] [employer] [address], [place], [place], [id number], [place] tel:[phone] SEC [facility] Professional Complete Exam (chief complaint) Viral conjunctiviti s of both eyesAllergic conjunctiviti s of both eyesPresence of intraocular lensType 2 diabetes mellitus without complication, without long-term current use of insulin b-0 0 Grant OD Luis. [address] [place] [address], [address] [place] [address], [place], [address], [place]. tel:[phone] Referring Provider: Marni Barbosa MD, [address], [place], [address]. tel:[phone] [facility], [address] [place] [address] [address], [place], [place], [id number], [place] tel:[phone] SEC [place] Professional Burning (chief complaint) Viral conjunctiviti s of both eyesAllergic conjunctiviti s of both eyes 0 Grant Batistaic. [address] [facility], [address]th Floor, [place], [address], [place]. tel:[phone] Referring Provider: Marni Barbosa MD, [address], [place], [address]. tel:[phone] [facility], [address] [place], [place], [place], [address], [place] tel:[phone] SEC [place] Professiona l No Information 0 Gabino Lanier. [address] [facility], [address], [place], [place], [address], [place]. tel:[phone] Family History Family Member Type Diagnosis Age [...]
--- OUTSIDE RECORDS SUMMARY | 2025-04-28 08:47 | XMS_ITS | Referral Summary ---
Author Organization [facility] [address] Address [address] [place] [address] Phone Care Team Providers Care Artist Agent Name Role Phone Marni Barbosa MD Primary Care Provider [phone] Jag Burch MD Unavailable [phone] Homero Ordoñez NP Unavailable [phone] Encounters Date Type Department Care Team Description 04/06/2025 Orders Only [facility] [address] [facility] [address] [place] [address] Sandrine Mann, OD Intermediate uveitis of both eyes (Primary Dx) 03/26/2025 Telephone [facility] [address] [place] [address] Marni Barbosa MD from Last [...] complication, without long-term current use of insulin ([facility]) Use to check blood glucose [...] 1 tablet (88 mcg total) by mouth machine erector before breakfast 90 tablet 2 07/24/20 24 Active blood glucose diagnostic (glucose blood) stripIndications:T ype 2 diabetes mellitus with stage 3b chronic kidney disease, without long-term current use of insulin ([facility]) Use to test blood glucose once daily. Dispense one touch Verio test strips 100 each 3 07/24/20 24 025 Active atorvastatin (LIPITOR) 40 mg tabletIndications: Type 2 diabetes mellitus with stage 3b chronic kidney disease, without long-term current use of insulin ([facility]),Multiple-typ e hyperlipidemia Take 1 tablet [...] By: Dorian Restrepo MD 09/25/2024 4:27:21 PM LINOLEUM TILE LAYER Moderate pulmonary hypertension 11/15/2024 Overview (11/15/2024): Discovered during hospitalization September 2025. Requested advice from Cardiology regarding further workup. Please refer to information under HFpEF Diarrhea 09/23/2024 Diabetic macular edema of left eye 09/23/2024 Assessment & Plan (12/25/2024 7:03 AM LINOLEUM TILE LAYER): Stable today. Will follow with OCT after stopping difluprednate drops Assessment & Plan (09/23/2024 9:58 PM LINOLEUM TILE LAYER): Resolved today with oral prednisone taper. Will follow with OCT as she has stopped prednisone. UTI (urinary tract infection) 09/22/2024 Assessment & Plan (09/22/2024 3:51 PM LINOLEUM TILE LAYER): Acute, found upon recent ER visit s/p fall on 09/18/24. Was given macrobid at first but culture came back resistant and was started on keflex on 09/20/24. Patient appears ill, afebrile, BP stable while sitting but orthostatic dropped almost 30 points. No acute abdominal findings or CVA tenderness. Consulted with Dr. Barbosa in office today, she recommends direct admit for UTI/dehydration. -[facility] Weakness 09/22/2024 Assessment & Plan (09/22/2024 4:33 PM LINOLEUM TILE LAYER): Worse in the last 1-2 weeks but uncontrollable in the last 2 days. Likely related to questionable urosepsis, see plan for UTI above. Dehydration 09/22/2024 Assessment & Plan (09/22/2024 4:39 PM LINOLEUM TILE LAYER): Acute, found upon recent CMP done in ER s/p fall 4 days ago. Na 133, chloride 95, creatinine stable. Orthostatic BP dropped almost 30 points upon standing in office today. Oral mucous membranes are pale and dry, skin is pale, turgor is slow. Consulted with Dr. Barbosa in office today, she suggested direct admit, accepted by Dr. Freedman [facility]. Orthostatic hypotension 09/22/2024 Assessment & Plan (09/22/2024 4:40 PM LINOLEUM TILE LAYER): Acute, + in office today. See plan for dehydration below. Accept[facility] for direct [facility]. Intermediate uveitis of both eyes 08/07/2024 Overview (08/19/2024): Diagnosis: Intermediate uveitis both eyes Complications: None Last active: 08/07/24 ou Systemic associations: None Labs: Positive: None Negative/normal: T pallidum antibody and CXR Care Team: Other notes: Referred by Tawanda Fournier Assessment & Plan (12/25/2024 7:02 AM LINOLEUM TILE LAYER): She has no active inflammation today. She has had multiple adverse effects from prednisone including falls and hyperglycemia. Will plan for Ozurdex for further therapy if needed.. OK to stay off of steroid drops. Assessment & Plan (09/23/2024 9:53 PM LINOLEUM TILE LAYER): She has no active inflammation today after [...] 07/24/2024 Assessment & Plan (12/25/2024 7:01 AM LINOLEUM TILE LAYER): She has persistent CME that is stable and non-central OS. Observe at this point, stressed BG control. Assessment & Plan (09/23/2024 9:54 PM LINOLEUM TILE LAYER): She is off of oral prednisone and [...] Arch support shoes with metatarsal pad from [employer] Hematoma and contusion 03/09/2023 [...] 06/11/2019 Assessment & Plan (12/09/2019 11:28 AM LINOLEUM TILE LAYER): Blood pressure much better controlled. She brought home log and cuff with her to today's visit and blood pressure 120-140 systolic and 70-80 diastolic. We will continue present medication regimen and refills will be sent to pharmacy. Assessment & Plan (11/11/2019 11:33 AM LINOLEUM TILE LAYER): Blood pressure remains elevated, but better controlled [...] weeks. Assessment & Plan (11/04/2019 5:05 PM LINOLEUM TILE LAYER): With uncontrolled blood pressure upon arrival to [...] 12/04/2023 Assessment & Plan (12/09/2019 12:18 PM LINOLEUM TILE LAYER): Patient reports issues of anxiety, tearfulness and depression with coping through her son's cancer and hospice care. Have discussed with patient and we will begin a low dose celexa. She will follow up in 6 weeks to determine effectiveness. She is to call with any questions or concerns. Grief support group encouraged Blurred vision 11/11/2019 08/22/2021 Assessment & Plan (11/11/2019 11:30 AM LINOLEUM TILE LAYER): Patient is reporting blurred vision worse in [...] 08/22/2021 Assessment & Plan (11/11/2019 11:29 AM LINOLEUM TILE LAYER): Improved s/p antibiotic eye drops. There is concern for possible allergic component as she reports occasional clear discharge and redness. She was encouraged to continue daily allergy pill and to see planner for further evaluation. Assessment & Plan (11/04/2019 5:02 PM LINOLEUM TILE LAYER): Patient has erythema and mucoid discharge noted [...] drink = 0.6 oz pur e alcohol) [facility] Utilities Answer Date Recorded In the past 12 months has th e [employer], gas, oil, or water [employer] threatened to shut off services in your [...] any clubs o r organizations such as uatsdin groups, unions, fraternal or athletic groups, or [...] staff should administer the PHQ-9) 1 07/24/2024 [employer] of Occupat ional [facility] - Occupational Stress Questionnaire Answer Date [...] time in the past 12 m [facility], were you homeless or living in a [...] on file Legal Sex Female 11:43 AM LINOLEUM TILE LAYER Gender Identity Not on file Sexual Orientation Not on file Occupation Industry Job Start Date Job End Date retired Not on file Not on file Not on file Last Filed Vital Signs Vital Sign Reading Time Taken Comments Blood Pressure 139/74 12/25/2024 2:18 PM LINOLEUM TILE LAYER Pulse 88 12/25/2024 2:18 PM LINOLEUM TILE LAYER Temperature 36.7 C (98.1 F) 10/03/2024 2:53 PM LINOLEUM TILE LAYER Respiratory Rate 18 12/25/2024 2:18 PM LINOLEUM TILE LAYER Oxygen Saturation 93% 10/03/2024 2:53 PM LINOLEUM TILE LAYER Inhaled Oxygen Concentration - - Weight 64.9 kg (143 lb) 12/25/2024 2:18 PM LINOLEUM TILE LAYER Height 160 cm (5' 3) 12/25/2024 2:18 PM LINOLEUM TILE LAYER Body Mass Index 25.33 12/25/2024 2:18 PM LINOLEUM TILE LAYER Plan of Treatment Not on file Procedures Procedure Name Priority Date/Time Associated Diagnosis Comments EGFR Routine 10/03/2024 9:15 AM LINOLEUM TILE LAYER HEMOGLOBIN A1C Routine 07/17/2024 8:05 AM CDT Type 2 diabetes mellitus without complication, without long-term current use of insulin ([facility]) ALBUMIN CREATININE RATIO, URINE Routine 07/17/2024 8:05 AM CDT Type 2 diabetes mellitus without complication, without long-term current use of insulin ([facility]) DEXA AXIAL SKELETON BONE DENSITY 1 OR MORE SITES Schedule Routine, Read Routine (OP Routine) 08/31/2023 12:55 PM LINOLEUM TILE LAYER Menopause LIPID PANEL Routine 04/20/2020 12:37 PM CDT Benign hypertension Multiple-type hyperlipidemia from Last 3 Months or Most Recently Relevant to Health Maintenance Results * eGFR (10/03/2024 9:15 AM LINOLEUM TILE LAYER) eGFR 63 >=60 mL/min/1. 73 m2 Comment: [...] last reviewed 2021. Blood 10/03/2024 9:15 AM LINOLEUM TILE LAYER 10/03/2024 9:28 AM LINOLEUM TILE LAYER us Geo Khanna MD LAB BLOOD ORDERABLES Final Resu lt [facility] ([place] 1 [facility] Department [place] [address] * Albumin Creatinine Ratio, Urine (07/17/2024 8:05 AM CDT) Albumin Ur 13.7 mg/L Comment: Interpretive Data No reference range established. Current interpretive data was last revised 2019. Testing performed by: [facility], [address] [place] [address], [place]., [address] Creatinine Ur 121.0 mg/dL TAYO Comment: Interpretive Data No reference range established. Current interpretive data was last revised 2019. Testing performed by: [address] [address] Albumin Creatinine Ratio, Ur 11 1 - 29 mg/g TAYO Comment:Testing performed by : [address] [address] Urine 07/17/2024 8:05 AM CDT 07/17/2024 12:44 PM CDT us Marni Barbosa MD LAB URINE ORDERABLES Final Result Performing Organization Address [facility]/[employer] Phone Number FRANCESEMA [id number] [place] [address] [place] [address] * (ABNORMAL) Hemoglobin A1c (07/17/2024 8:05 AM CDT) Hgb A1C 6.8(H) 4.0 - 5.6 % Comment:Testing performed by : [address] [address] Estimated Average Glucose 148 mg/dL TAYO Comment: The ADA recommends reporting an estimated Average Glucose (eAG) with all Hemoglobin A1c results using the equation derived from a study of 507 normal and diabetic adults. Minority populations were underrepresented and children were not included. (Diabetes Care 31:8979-2774, 2008). The eAG is not equivalent to a fasting glucose. Testing performed by: [address] [address] Blood 07/17/2024 8:05 AM CDT 07/17/2024 12:44 PM CDT us Marni Barbosa MD LAB BLOOD ORDERABLES Final Result Performing Organization Address [facility]/[employer] Phone Number TAYO [address] [facility] [place] [address] * Dexa Axial Skeleton Bone Density 1 or 2 Site (08/31/2023 12:55 PM LINOLEUM TILE LAYER) Anatomical Region Laterality Modality Body N/A Other 08/31/2023 1:23 PM LINOLEUM TILE LAYER Narrative 08/31/2023 1:25 PM LINOLEUM TILE LAYER EXAM DESCRIPTION: DEXA AXIAL SKELETON BONE DENSITY 1 OR MORE SITES REASON FOR STUDY: 82 y/o year old F with given history of: menopause Osteoporosis screening Post menopausal Escort Blind/Model: [address] (S/N [id number]) CLINICAL INFORMATION: Current height: 65.5 inches Maximum [...] Collin Vargas M.D. MF: HECTOR Report ID: [id number] Reading Location: [place] [address] Procedure Note Collin Vargas MD - 08/31/2023 EXAM DESCRIPTION: DEXA AXIAL SKELETON BONE DENSITY 1 OR MORE SITES REASON FOR STUDY: 82 y/o year old F with given history of: menopause Osteoporosis screening Post menopausal Escort Blind/Model: [address] (S/N [id number]) CLINICAL INFORMATION: Current height: 65.5 inches Maximum [...] Collin Vargas M.D. MF: MF Report ID: [id number] Reading Location: [place] [address] Marni Barbosa MD IMG DXA PROCEDURES Final [...] LAB BLOOD ORDERABL ES Final Result TAYO [address] [address] Department [place] [address] from Last 3 Months or Most Recently Relevant to Health Maintenance Insurance MEDICARE Privatext MEDICARE Privatext MEDICARE 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
== END 2025-04-28 08:44 | disposition home or self-care (01) ==
PROVIDERS: PCP Family Medicine; Visit Provider Family Medicine
DX: R93.5 Abnormal findings on diagnostic imaging of other abdominal regions, including retroperitoneum (principal); K44.9 Diaphragmatic hernia without obstruction or gangrene
CPT/HCPCS: 74176

== ENCOUNTER 2025-05-04 08:17 | Outpatient (CLI) | payer MEDICARE, SELFPAY ==
--- OUTSIDE RECORDS SUMMARY | 2025-05-04 08:23 | XMS_ITS | Continuity of Care Document ---
Author Organization [facility] Address [address] [place] [address] Dr Atkins [address] [place] [phone] Phone Care Team Providers Care Standpipe Tender Name Role Phone Clementine Low OD Unavailable [...] Diagnoses Date Provider Providers Copied on Encounter [facility], [address] [place] [address] [address], [place], [place], [id number], tel:[phone] SEC Ryan [place] Professional 2 week s/p YAG PC (chief complaint) Post op visit 3 Devante CLAI Clementine. [facility] [employer], [address], [place], [place], [id number], [place]. tel:[phone] Referring Provider: Marni Barbosa MD, [address], [place], [address]. tel:[phone] [facility], [facility] [address], [place], [place], [id number], tel:[phone] SEC Lou[place] Professional YAG PC (chief complaint) Presence of intraocular lensOther secondary cataract, left eye Mar-3 3 Gabino Lanier. [address] [facility], [facility] [place], [id number], [place]. tel:[phone] Referring Provider: Marni Barbosa MD, [address] [place], [address]. tel:[phone] Office/outpa tient Visit, Est [facility], [facility] [address], [place], [place], [id number], [place] tel:[phone] SEC Ryan MYERS Professional Diabetic eye exam (chief complaint) Presence of intraocular lensType 2 diab with mild nonp rtnop without mclr edema, r eyeVitreous degeneration, right eyeOther secondary cataract, bilateralDry eye syndrome of bilateral lacrimal glandsOther secondary cataract, right eye Mar-0 3 Gabino Lanier. [address] [facility], [facility] [place], [place], [id number], [place]. tel:[phone] Referring Provider: Marni Barbosa MD, [address], [place], [address]. tel:[phone] [facility], [address] [place] [address] [address], [place], [place], [id number], [place] tel:[phone] SEC [facility] Professional diabetic eye exam (chief complaint) Presence of intraocular lensType 2 diab with mild nonp rtnop without mclr edema, r eye Apr- 1 Lloyd Yannick. [address] [facility], [address], [place], [place], [id number], [place]. tel:[phone] Referring Provider: Marni Barbosa MD, [address], [place], [address]. tel:[phone] [facility], [address] [place], [place] [address]st [facility] [address], [place], [place], [id number], [place] tel:[phone] SEC [facility] Professional No Information b-0 0 Grant OD Luis. [address] [place] [address], [address] [place] [address], [place], [address], [place]. tel:[phone] Referring Provider: Marni Barbosa MD, [address], [place], [address]. tel:[phone] [facility], [facility] [address], [place], [place], [id number], [place] tel:[phone] SEC [facility] Professional Complete Exam (chief complaint) Viral conjunctiviti s of both eyesAllergic conjunctiviti s of both eyesPresence of intraocular lensType 2 diabetes mellitus without complication, without long-term current use of insulin b-0 0 Grant OD Luis. [address] [place] [address], [address] [place] [address], [place], [address], [place]. tel:[phone] Referring Provider: Marni Barbosa MD, [address], [place], [address]. tel:[phone] [facility], [address] [place] [address] [address], [place], [place], [id number], [place] tel:[phone] SEC Ryan [place] Professional Burning (chief complaint) Viral conjunctiviti s of both eyesAllergic conjunctiviti s of both eyes 0 Grant Batistaic. [address] [facility], [address], [place], [address], [place]. tel:[phone] Referring Provider: Marni Barbosa MD, [address], [place], [address]. tel:[phone] [facility] Eye [facility], [address] [address], [place], [place], [id number], [place] tel:[phone] SEC Louin [place] Professiona l No Information 0 Gabino Lanier. [address] [facility], [address], [place], [place], [id number], [place]. tel:[phone] Family History Family Member Type Diagnosis Age [...] No Information Instructions Date Instruction Additional Infor dnai Impression/Plan Impression/Plan Impression/Plan Impression/Plan Impression/Plan Impression/Plan Assessments Type Assessment Date assessment Post op visit Patient Care Teams Name Effective Dates (start - stop) Status Members No Information
--- OUTSIDE RECORDS SUMMARY | 2025-05-04 08:23 | XMS_ITS | Clinical Summary ---
Author Organization [facility] [address] Address [address] [place] [address] Phone Care Team Providers Care Winchman/Crane Operator Name Role Phone Marni Barbosa MD Primary Care Provider [phone] Jag Burch MD Unavailable [phone] Homero Ordoñez NP Unavailable [phone] Allergies No known active allergies Medications turmeric [...] 1 tablet (88 mcg total) by mouth rn [facility] before breakfast 90 tablet 2 07/24/20 24 [...] By: Dorian Restrepo MD 09/25/2024 4:27:21 PM MAJOR GIFTS MANAGER Moderate pulmonary hypertension 11/15/2024 Overview (11/15/2024): Discovered during hospitalization September 2025. Requested advice from Cardiology regarding further workup. Please refer to information under HFpEF Diarrhea 09/23/2024 Diabetic macular edema of left eye 09/23/2024 Assessment & Plan (12/25/2024 7:03 AM MAJOR GIFTS MANAGER): Stable today. Will follow with OCT after stopping difluprednate drops Assessment & Plan (09/23/2024 9:58 PM MAJOR GIFTS MANAGER): Resolved today with oral prednisone taper. Will follow with OCT as she has stopped prednisone. UTI (urinary tract infection) 09/22/2024 Assessment & Plan (09/22/2024 3:51 PM MAJOR GIFTS MANAGER): Acute, found upon recent ER visit [...] admit for UTI/dehydration. -accepted at [facility]. Weakness 09/22/2024 Assessment & Plan (09/22/2024 4:33 PM MAJOR GIFTS MANAGER): Worse in the last 1-2 weeks but uncontrollable in the last 2 days. Likely related to questionable urosepsis, see plan for UTI above. Dehydration 09/22/2024 Assessment & Plan (09/22/2024 4:39 PM MAJOR GIFTS MANAGER): Acute, found upon recent CMP done in ER s/p fall 4 days ago. Na 133, chloride 95, creatinine stable. Orthostatic BP dropped almost 30 points upon standing in office today. Oral mucous membranes are pale and dry, skin is pale, turgor is slow. Consulted with Dr. Barbosa in office today, she suggested direct admit, accepted by Dr. Freedman at [facility]. Orthostatic hypotension 09/22/2024 Assessment & Plan (09/22/2024 4:40 PM MAJOR GIFTS MANAGER): Acute, + in office today. See plan for dehydration below. Accepted for direct admit to [facility]. 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 She has had multiple adverse effects from prednisone including falls and hyperglycemia. Will plan for Ozurdex for further therapy if needed.. OK to stay off of steroid drops. Assessment & Plan (09/23/2024 9:53 PM MAJOR GIFTS MANAGER): She has no active inflammation today [...] 07/24/2024 Assessment & Plan (12/25/2024 7:01 AM MAJOR GIFTS MANAGER): She has persistent CME that is stable and non-central OS. Observe at this point, stressed BG control. Assessment & Plan (09/23/2024 9:54 PM MAJOR GIFTS MANAGER): She is off of oral prednisone [...] Arch support shoes with metatarsal pad from [employer] Hematoma and contusion 03/09/2023 [...] 06/11/2019 Assessment & Plan (12/09/2019 11:28 AM MAJOR GIFTS MANAGER): Blood pressure much better controlled. She brought home log and cuff with her to today's visit and blood pressure 120-140 systolic and 70-80 diastolic. We will continue present medication regimen and refills will be sent to pharmacy. Assessment & Plan (11/11/2019 11:33 AM MAJOR GIFTS MANAGER): Blood pressure remains elevated, but better [...] weeks. Assessment & Plan (11/04/2019 5:05 PM MAJOR GIFTS MANAGER): With uncontrolled blood pressure upon arrival [...] 12/04/2023 Assessment & Plan (12/09/2019 12:18 PM MAJOR GIFTS MANAGER): Patient reports issues of anxiety, tearfulness and depression with coping through her son's cancer and hospice care. Have discussed with patient and we will begin a low dose celexa. She will follow up in 6 weeks to determine effectiveness. She is to call with any questions or concerns. Grief support group encouraged Blurred vision 11/11/2019 08/22/2021 Assessment & Plan (11/11/2019 11:30 AM MAJOR GIFTS MANAGER): Patient is reporting blurred vision worse [...] 08/22/2021 Assessment & Plan (11/11/2019 11:29 AM MAJOR GIFTS MANAGER): Improved s/p antibiotic eye drops. There is concern for possible allergic component as she reports occasional clear discharge and redness. She was encouraged to continue daily allergy pill and to see mold maker for further evaluation. Assessment & Plan (11/04/2019 5:02 PM MAJOR GIFTS MANAGER): Patient has erythema and mucoid discharge noted in left lower conjunctiva, with concern for possible bacterial conjunctivitis. Antibiotic ophthalmic solution sent. Patient instructed to use 2 drops in left eye QID x 5 days. If symptoms worsen or persist she was instructed to call. Encounters Date Type Department Care Team Description 04/06/2025 Orders Only [facility] [address] [facility] [address] [place] [address] Sandrine Mann, CALI Intermediate uveitis of both eyes (Primary Dx) 03/26/2025 Telephone [facility] [address] [place] [address] Marni Barbosa MD from Last [...] COLONOSCOPY 10/22/2016 - 10/21/2017 Single polyp in [place] Medical History Medical History Date Comments Diabetes [...] = 0.6 oz pur e alcohol) [facility] Utilities Answer Date Recorded In the [...] often do you attend chur ch or church services? Never 09/23/2024 Do you belong to any clubs o r organizations such as zoroastrian groups, unions, fraternal or athletic groups, or [...] staff should administer the PHQ-9) 1 07/24/2024 [facility] - [facility]ational [...] any time in the past [facility], were you homeless or living in [...] on file Legal Sex Female 11:43 AM MAJOR GIFTS MANAGER Gender Identity Not on file Sexual [...] Comments Blood Pressure 139/74 12/25/2024 2:18 PM MAJOR GIFTS MANAGER Pulse 88 12/25/2024 2:18 PM MAJOR GIFTS MANAGER Temperature 36.7 C (98.1 F) 10/03/2024 2:53 PM MAJOR GIFTS MANAGER Respiratory Rate 18 12/25/2024 2:18 PM MAJOR GIFTS MANAGER Oxygen Saturation 93% 10/03/2024 2:53 PM MAJOR GIFTS MANAGER Inhaled Oxygen Concentration - - Weight 64.9 kg (143 lb) 12/25/2024 2:18 PM MAJOR GIFTS MANAGER Height 160 cm (5' 3) 12/25/2024 2:18 PM MAJOR GIFTS MANAGER Body Mass Index 25.33 12/25/2024 2:18 PM MAJOR GIFTS MANAGER Plan of Treatment Health Maintenance Due [...] Diagnosis Comments EGFR Routine 10/03/2024 9:15 AM MAJOR GIFTS MANAGER HEMOGLOBIN A1C Routine 07/17/2024 8:05 AM CDT Type 2 diabetes mellitus without complication, without long-term current use of insulin (HCC) ALBUMIN CREATININE RATIO, URINE Routine 07/17/2024 8:05 AM CDT Type 2 diabetes mellitus without complication, without long-term current use of insulin (HCC) DEXA AXIAL SKELETON BONE DENSITY 1 OR MORE SITES Schedule Routine, Read Routine (OP Routine) 08/31/2023 12:55 PM MAJOR GIFTS MANAGER Menopause LIPID PANEL Routine 04/20/2020 12:37 PM CDT Benign hypertension Multiple-type hyperlipidemia from Last 3 Months or Most Recently Relevant to Health Maintenance Results * eGFR (10/03/2024 9:15 AM MAJOR GIFTS MANAGER) eGFR 63 >=60 mL/min/1. 73 m2 [...] last reviewed 2021. Blood 10/03/2024 9:15 AM MAJOR GIFTS MANAGER 10/03/2024 9:28 AM MAJOR GIFTS MANAGER us Geo Khanna MD LAB BLOOD ORDERABLES Final Resu lt TAYO [facility] [address] [facility] Department [place] [address] * Albumin Creatinine Ratio, Urine (07/17/2024 8:05 AM CDT) Albumin Ur 13.7 mg/L Comment: Interpretive Data No reference range established. Current interpretive data was last revised 2019. Testing performed by: [facility], [address] [place] [address]., [address] Creatinine Ur 121.0 mg/dL TYAO Comment: Interpretive Data No reference range established. Current interpretive data was last revised 2019. Testing performed by: [address] [address] Albumin Creatinine Ratio, Ur 11 1 - 29 mg/g TAYO Comment:Testing performed by : [address] [address] Urine 07/17/2024 8:05 AM CDT 07/17/2024 12:44 PM CDT Marni Barbosa MD LAB URINE ORDERABLES Final Result Performing Organization Address [facility] Co de Phone Number TAYO [address] [place] [address] * (ABNORMAL) Hemoglobin A1c (07/17/2024 8:05 AM CDT) Hgb A1C 6.8(H) 4.0 - 5.6 % Comment:Testing performed by : [address] [address] Estimated Average Glucose 148 mg/dL TAYO Comment: The ADA recommends reporting an estimated Average Glucose (eAG) with all Hemoglobin A1c results using the equation derived from a study of 507 normal and diabetic adults. Minority populations were underrepresented and children were not included. (Diabetes Care 31:3572-2559, 2008). The eAG is not equivalent to a fasting glucose. Testing performed by: [address] [address] Blood 07/17/2024 8:05 AM CDT 07/17/2024 12:44 PM CDT us Marni Barbosa MD LAB BLOOD ORDERABLES Final Result TAYO [place] [address] [address] Department [place] [address] * Dexa Axial Skeleton Bone Density 1 or 2 Site (08/31/2023 12:55 PM MAJOR GIFTS MANAGER) Anatomical Region Laterality Modality Body N/A Other 08/31/2023 1:23 PM MAJOR GIFTS MANAGER Narrative 08/31/2023 1:25 PM MAJOR GIFTS MANAGER EXAM DESCRIPTION: DEXA AXIAL SKELETON BONE DENSITY 1 OR MORE SITES REASON FOR STUDY: 82 y/o year old F with given history of: menopause Osteoporosis screening Post menopausal Patient Care Specialist/Model: [employer] (S/N [id number]) CLINICAL INFORMATION: Current height: 65.5 inches Maximum [...] Collin Vargas M.D. MF: HECTOR Report ID: [id number] Reading Location: [id number] Procedure Note Collin Vargas MD - 08/31/2023 EXAM DESCRIPTION: DEXA AXIAL SKELETON BONE DENSITY 1 OR MORE SITES REASON FOR STUDY: 82 y/o year old F with given history of: menopause Osteoporosis screening Post menopausal Patient Care Specialist/Model: [employer] (S/N [id number]) CLINICAL INFORMATION: Current height: 65.5 inches Maximum [...] Collin Vargas M.D. MF: HECTOR Report ID: [id number] Reading Location: [place] [address] us Marni Barbosa MD IMG DXA PROCEDURES [...] 04/20/2020 12:39 PM CDT us Luci Barcenas [employer] LAB BLOOD [place] [address] [place] Department of Laboratories [place], [place] [id number] from Last 3 Months or Most Recently Relevant to Health Maintenance Insurance MEDICARE [employer] MEDICARE [employer] MEDICARE [facility] Address: [facility] [address] [place] [address] [employer] Advance Directives For more information, please contact: [phone] Documents on File Type Date Recorded Patient Set Designer Expl anation ADVANCE DIRECTIVE 04/30/2019 DNR ADVANCE DIRECTIVE 04/30/2019 POWER OF A [employer]NEY[employer] * Full Code (Latest Code Status on File) Date Activated Date Inactivated Comments 09/22/2024 3:49 PM 10/03/2024 8:12 PM Care Teams Winchman/Crane Operator Relationship Specialty Start Date End Date Marni Barbosa MD PCP - General Internal Medicine 03/18/19 Jag Burch MD [address] [place] [address] Ophthalmology 07/24/24 Homero Ordoñez NP [address] [place] [address] Nurse Practitioner Internal Medicine 11/13/24
--- OUTSIDE RECORDS SUMMARY | 2025-05-04 08:23 | XMS_ITS | Referral Summary ---
Author Organization [facility] [address] Address [address] [place] [address] Phone Care Team Providers Care Clinical Team Lead Name Role Phone Marni Barbosa MD Primary Care Provider [phone] Jag Burch MD Unavailable [phone] Homero Ordoñez NP Unavailable [phone] Encounters Date Type Department Care Team Description 04/06/2025 Orders Only [facility] [address] [facility] [address] [place] [address] Sandrine Mann, OD Intermediate uveitis of both eyes (Primary Dx) 03/26/2025 Telephone [facility] [address] [place] [address] Marni Barbosa MD from Last [...] [facility]) Use to check blood glucose levels once [...] 1 tablet (88 mcg total) by mouth care team coordinator scheduler before breakfast 90 tablet 2 07/24/20 24 [...] By: Dorian Restrepo MD 09/25/2024 4:27:21 PM FRONTLOAD DRIVER Moderate pulmonary hypertension 11/15/2024 Overview (11/15/2024): Discovered during hospitalization September 2025. Requested advice from Cardiology regarding further workup. Please refer to information under HFpEF Diarrhea 09/23/2024 Diabetic macular edema of left eye 09/23/2024 Assessment & Plan (12/25/2024 7:03 AM FRONTLOAD DRIVER): Stable today. Will follow with OCT after stopping difluprednate drops Assessment & Plan (09/23/2024 9:58 PM FRONTLOAD DRIVER): Resolved today with oral prednisone taper. Will follow with OCT as she has stopped prednisone. UTI (urinary tract infection) 09/22/2024 Assessment & Plan (09/22/2024 3:51 PM FRONTLOAD DRIVER): Acute, found upon recent ER visit s/p [...] direct admit for UTI/dehydration. -accepted at [facility]. Weakness 09/22/2024 Assessment & Plan (09/22/2024 4:33 PM FRONTLOAD DRIVER): Worse in the last 1-2 weeks but uncontrollable in the last 2 days. Likely related to questionable urosepsis, see plan for UTI above. Dehydration 09/22/2024 Assessment & Plan (09/22/2024 4:39 PM FRONTLOAD DRIVER): Acute, found upon recent CMP done in ER s/p fall 4 days ago. Na 133, chloride 95, creatinine stable. Orthostatic BP dropped almost 30 points upon standing in office today. Oral mucous membranes are pale and dry, skin is pale, turgor is slow. Consulted with Dr. Barbosa in office today, she suggested direct admit, accepted by Dr. Freedman at [facility]. Orthostatic hypotension 09/22/2024 Assessment & Plan (09/22/2024 4:40 PM FRONTLOAD DRIVER): Acute, + in office today. See plan for dehydration below. Accepted for direct admit to [facility]. 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 She has had multiple adverse effects from prednisone including falls and hyperglycemia. Will plan for Ozurdex for further therapy if needed.. OK to stay off of steroid drops. Assessment & Plan (09/23/2024 9:53 PM FRONTLOAD DRIVER): She has no active inflammation today after [...] 07/24/2024 Assessment & Plan (12/25/2024 7:01 AM FRONTLOAD DRIVER): She has persistent CME that is stable and non-central OS. Observe at this point, stressed BG control. Assessment & Plan (09/23/2024 9:54 PM FRONTLOAD DRIVER): She is off of oral prednisone and [...] Arch support shoes with metatarsal pad from [employer] Hematoma and contusion 03/09/2023 [...] 06/11/2019 Assessment & Plan (12/09/2019 11:28 AM FRONTLOAD DRIVER): Blood pressure much better controlled. She brought home log and cuff with her to today's visit and blood pressure 120-140 systolic and 70-80 diastolic. We will continue present medication regimen and refills will be sent to pharmacy. Assessment & Plan (11/11/2019 11:33 AM FRONTLOAD DRIVER): Blood pressure remains elevated, but better controlled [...] weeks. Assessment & Plan (11/04/2019 5:05 PM FRONTLOAD DRIVER): With uncontrolled blood pressure upon arrival to [...] 12/04/2023 Assessment & Plan (12/09/2019 12:18 PM FRONTLOAD DRIVER): Patient reports issues of anxiety, tearfulness and depression with coping through her son's cancer and hospice care. Have discussed with patient and we will begin a low dose celexa. She will follow up in 6 weeks to determine effectiveness. She is to call with any questions or concerns. Grief support group encouraged Blurred vision 11/11/2019 08/22/2021 Assessment & Plan (11/11/2019 11:30 AM FRONTLOAD DRIVER): Patient is reporting blurred vision worse in [...] 08/22/2021 Assessment & Plan (11/11/2019 11:29 AM FRONTLOAD DRIVER): Improved s/p antibiotic eye drops. There is concern for possible allergic component as she reports occasional clear discharge and redness. She was encouraged to continue daily allergy pill and to see disc pad plate filler for further evaluation. Assessment & Plan (11/04/2019 5:02 PM FRONTLOAD DRIVER): Patient has erythema and mucoid discharge noted [...] = 0.6 oz pur e alcohol) [facility] Utilities Answer Date Recorded In the past 12 months has th e [employer], gas, oil, or water [employer] threatened to shut off services in your [...] often do you attend chur ch or rastafari services? Never 09/23/2024 Do you belong to [...] staff should administer the PHQ-9) 1 07/24/2024 [facility] of Occupat ional [facility] - Occupational Stress Questionnaire Answer Date [...] in the past 12 m [facility], were you homeless or living in a halfway (including now)? No 09/23/2024 Personal Safety Answer Date Recorded Have you ever been in or are you currently in a harmful physical or emotional relationship or is someone making you feel afraid or unsafe? Denies 09/22/2024 Comments No Sex and Gender Information Value Date Recorded Sex Assigned at Not on file Legal Sex Female 11:43 AM FRONTLOAD DRIVER Gender Identity Not on file Sexual Orientation Not on file Occupation Industry Job Start Date Job End Date retired Not on file Not on file Not on file Last Filed Vital Signs Vital Sign Reading Time Taken Comments Blood Pressure 139/74 12/25/2024 2:18 PM FRONTLOAD DRIVER Pulse 88 12/25/2024 2:18 PM FRONTLOAD DRIVER Temperature 36.7 C (98.1 F) 10/03/2024 2:53 PM FRONTLOAD DRIVER Respiratory Rate 18 12/25/2024 2:18 PM FRONTLOAD DRIVER Oxygen Saturation 93% 10/03/2024 2:53 PM FRONTLOAD DRIVER Inhaled Oxygen Concentration - - Weight 64.9 kg (143 lb) 12/25/2024 2:18 PM FRONTLOAD DRIVER Height 160 cm (5' 3) 12/25/2024 2:18 PM FRONTLOAD DRIVER Body Mass Index 25.33 12/25/2024 2:18 PM FRONTLOAD DRIVER Plan of Treatment Not on file Procedures Procedure Name Priority Date/Time Associated Diagnosis Comments EGFR Routine 10/03/2024 9:15 AM FRONTLOAD DRIVER HEMOGLOBIN A1C Routine 07/17/2024 8:05 AM CDT Type 2 diabetes mellitus without complication, without long-term current use of insulin (HCC) ALBUMIN CREATININE RATIO, URINE Routine 07/17/2024 8:05 AM CDT Type 2 diabetes mellitus without complication, without long-term current use of insulin (HCC) DEXA AXIAL SKELETON BONE DENSITY 1 OR MORE SITES Schedule Routine, Read Routine (OP Routine) 08/31/2023 12:55 PM FRONTLOAD DRIVER Menopause LIPID PANEL Routine 04/20/2020 12:37 PM CDT Benign hypertension Multiple-type hyperlipidemia from Last 3 Months or Most Recently Relevant to Health Maintenance Results * eGFR (10/03/2024 9:15 AM FRONTLOAD DRIVER) eGFR 63 >=60 mL/min/1. 73 m2 Comment: [...] last reviewed 2021. Blood 10/03/2024 9:15 AM FRONTLOAD DRIVER 10/03/2024 9:28 AM FRONTLOAD DRIVER us Geo Khanna MD LAB BLOOD ORDERABLES Final Resu lt TAYO [facility] ([place] [address] [facility] Department [place] [address] * Albumin Creatinine Ratio, Urine (07/17/2024 8:05 AM CDT) Albumin Ur 13.7 mg/L Comment: Interpretive Data No reference range established. Current interpretive data was last revised 2019. Testing performed by: [facility], [address] [place] [address], [place]., [address] Creatinine Ur 121.0 mg/dL TAYO Comment: Interpretive Data No reference range established. Current interpretive data was last revised 2019. Testing performed by: [address] [address] Albumin Creatinine Ratio, Ur 11 1 - 29 mg/g TAYO Comment:Testing performed by : [address] [address] Urine 07/17/2024 8:05 AM CDT 07/17/2024 12:44 PM CDT us Marni Barbosa MD LAB URINE ORDERABLES Final Result Performing Organization Address [facility] Co de Phone Number FR[place] [phone] [place] [address] [place] [address] * (ABNORMAL) Hemoglobin A1c (07/17/2024 8:05 AM CDT) Hgb A1C 6.8(H) 4.0 - 5.6 % Comment:Testing performed by : [address] [address] Estimated Average Glucose 148 mg/dL TAYO Comment: The ADA recommends reporting an estimated Average Glucose (eAG) with all Hemoglobin A1c results using the equation derived from a study of 507 normal and diabetic adults. Minority populations were underrepresented and children were not included. (Diabetes Care 31:8029-7723, 2008). The eAG is not equivalent to a fasting glucose. Testing performed by: [address] [address] Blood 07/17/2024 8:05 AM CDT 07/17/2024 12:44 PM CDT us Marni Barbosa MD LAB BLOOD ORDERABLES Final Result Performing Organization Address [facility] Co de Phone Number TAYO [address] [facility] [place] [address] * Dexa Axial Skeleton Bone Density 1 or 2 Site (08/31/2023 12:55 PM FRONTLOAD DRIVER) Anatomical Region Laterality Modality Body N/A Other 08/31/2023 1:23 PM FRONTLOAD DRIVER Narrative 08/31/2023 1:25 PM FRONTLOAD DRIVER EXAM DESCRIPTION: DEXA AXIAL SKELETON BONE DENSITY 1 OR MORE SITES REASON FOR STUDY: 82 y/o year old F with given history of: menopause Osteoporosis screening Post menopausal Restaurant Hostess/Model: [employer] (S/N [id number]) CLINICAL INFORMATION: Current height: 65.5 inches Maximum [...] Collin Vargas M.D. MF: HECTOR Report ID: [id number] Reading Location: [place] [address] Procedure Note Collin Vargas MD - 08/31/2023 EXAM DESCRIPTION: DEXA AXIAL SKELETON BONE DENSITY 1 OR MORE SITES REASON FOR STUDY: 82 y/o year old F with given history of: menopause Osteoporosis screening Post menopausal Restaurant Hostess/Model: [employer] (S/N [id number]) CLINICAL INFORMATION: Current height: 65.5 inches Maximum [...] Collin Vargas M.D. MF: MF Report ID: [id number] Reading Location: [place] [address] Marni Barbosa MD IMG DXA PROCEDURES Final [...] revised on 2018. HDL 37(L) >=40 mg/dL TYAO Comment: Interpretive Data Ages < or = [...] LAB BLOOD ORDERABL ES Final Result TAYO [address] [address] Department [place] [address] from Last 3 Months or Most Recently Relevant to Health Maintenance Insurance MEDICARE [employer] MEDICARE [employer] MEDICARE [facility] [employer] Advance Directives For more information, please contact: [phone] Documents on File Type Date Recorded Patient Resource Development Manager Expl anation ADVANCE DIRECTIVE 04/30/2019 DNR ADVANCE DIRECTIVE 04/30/2019 POWER OF A [employer]NEY[employer] * Full Code (Latest Code Status on File) Date Activated Date Inactivated Comments 09/22/2024 3:49 PM 10/03/2024 8:12 PM Care Teams Clinical Team Lead Relationship Specialty Start Date End Date Marni Barbosa MD PCP - General Internal Medicine 03/18/19 Jag Burch MD [address] [place] [address] Ophthalmology 07/24/24 Homero Ordoñez NP [address] [place] [address] Nurse Practitioner Internal Medicine 11/13/24
[2025-05-04 08:55] LABS: Iron 49 ug/dL (37-170)
[2025-05-04 09:04] LABS: Percent Iron Saturation 13 % (20-50)
[2025-05-04 10:00] LABS: Vitamin B12 336.0 pg/mL (239-931)
[2025-05-04 14:33] LABS: Ferritin 22.60 ng/mL (11.1-264)
== END 2025-05-04 08:18 | disposition home or self-care (01) ==
LOC: CHSLAB 08:19
PROVIDERS: PCP Family Medicine; Visit Provider Family Medicine
DX: N18.30 Chronic kidney disease, stage 3 unspecified (principal)
CPT/HCPCS: 36415; 82607; 82728; 82746; 83540; 83550

== ENCOUNTER 2025-05-19 13:39 | Outpatient (CLI) | payer MEDICARE, SELFPAY ==
--- OUTSIDE RECORDS SUMMARY | 2025-05-19 13:45 | XMS_ITS | Referral Summary ---
Author Organization [facility] [address] Address [address] [place] [address] Phone Care Team Providers Care Manager Express Name Role Phone Jag Burch MD Unavailable [phone] Homero Ordoñez NP Unavailable [phone] Encounters Date Type Department Care Team Description 05/06/2025 11:30 AM CDT Imaging Exam [facility] [address] [facility] [address] [place] [address] Intermediate uveitis of both eyes 05/06/2025 11:30 AM CDT Office Visit [facility] [address] [facility] [address] [place] [address] Sandrine Mann, OD Intermediate uveitis of both eyes (Primary Dx); Type 2 diabetes mellitus with chronic kidney disease, without long-term current use of insulin, unspecified CKD stage (HCC); 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 1 each 12/10/19 24 Active lancets (OneTouch Delica Plus Lancet) 30 gauge miscIndications:Ty pe 2 diabetes mellitus without complication, without long-term current use of insulin ([facility]) Use to check blood glucose [...] 1 tablet (88 mcg total) by mouth metal reed tuner before breakfast 90 tablet 2 07/24/20 24 Active blood glucose diagnostic (glucose blood) stripIndications:T ype 2 diabetes mellitus with stage 3b chronic kidney disease, without long-term current use of insulin ([facility]) Use to test blood glucose once daily. Dispense one touch Verio test strips 100 each 3 07/24/20 24 025 Active atorvastatin (LIPITOR) 40 mg tabletIndications: Type 2 diabetes mellitus with stage 3b chronic kidney disease, without long-term current use of insulin ([facility]),Multiple-typ e hyperlipidemia Take 1 tablet [...] (six) hours as needed for pain Active cyclobenzaprine (FLEXERIL) 5 mg tablet 1 tablet (5 mg total) 3 (three) times a day as needed 04/18/20 25 Active furosemide (LASIX) 20 mg tablet 1 tablet (20 mg total) 04/14/20 25 Active levothyroxine (SYNTHROID) 50 mcg tablet 1 tablet (50 mcg total) 04/19/20 25 Active potassium chloride ER 10 mEq CR tablet 04/29/20 25 Active Ozempic 0.25 mg or 0.5 mg (2 mg/3 mL) pen injector injection 05/01/20 25 Active Active Problems Problem Noted Date Diagnosed [...] By: Dorian Restrepo MD 09/25/2024 4:27:21 PM POLYSTYRENE BEAD MOLDER Moderate pulmonary hypertension 11/15/2024 Overview (11/15/2024): Discovered during hospitalization September 2025. Requested advice from Cardiology regarding further workup. Please refer to information under HFpEF Diarrhea 09/23/2024 Diabetic macular edema of left eye 09/23/2024 Assessment & Plan (12/25/2024 7:03 AM POLYSTYRENE BEAD MOLDER): Stable today. Will follow with OCT after stopping difluprednate drops Assessment & Plan (09/23/2024 9:58 PM POLYSTYRENE BEAD MOLDER): Resolved today with oral prednisone taper. Will follow with OCT as she has stopped prednisone. UTI (urinary tract infection) 09/22/2024 Assessment & Plan (09/22/2024 3:51 PM POLYSTYRENE BEAD MOLDER): Acute, found upon recent ER visit s/p fall on 09/18/24. Was given macrobid at first but culture came back resistant and was started on keflex on 09/20/24. Patient appears ill, afebrile, BP stable while sitting but orthostatic dropped almost 30 points. No acute abdominal findings or CVA tenderness. Consulted with Dr. Barbosa in office today, she recommends direct admit for UTI/dehydration. -accepted at [facility]. Weakness 09/22/2024 Assessment & Plan (09/22/2024 4:33 PM POLYSTYRENE BEAD MOLDER): Worse in the last 1-2 weeks but uncontrollable in the last 2 days. Likely related to questionable urosepsis, see plan for UTI above. Dehydration 09/22/2024 Assessment & Plan (09/22/2024 4:39 PM POLYSTYRENE BEAD MOLDER): Acute, found upon recent CMP done in ER s/p fall 4 days ago. Na 133, chloride 95, creatinine stable. Orthostatic BP dropped almost 30 points upon standing in office today. Oral mucous membranes are pale and dry, skin is pale, turgor is slow. Consulted with Dr. Barbosa in office today, she suggested direct admit, accepted by Dr. Freedman at [facility]. Orthostatic hypotension 09/22/2024 Assessment & Plan (09/22/2024 4:40 PM POLYSTYRENE BEAD MOLDER): Acute, + in office today. See plan for dehydration below. Accepted for direct admit to [facility]. Intermediate uveitis of both eyes 08/07/2024 Overview (08/19/2024): Diagnosis: Intermediate uveitis both eyes Complications: None Last active: 08/07/24 ou Systemic associations: None Labs: Positive: None Negative/normal: T pallidum antibody and CXR Care Team: Other notes: Referred by Tawanda Fournier Assessment & Plan (05/14/2025 2:29 PM CDT): No active inflammation, monitor Cont Durezol every day (QD) OU Assessment & Plan (12/25/2024 7:02 AM POLYSTYRENE BEAD MOLDER): She has no active inflammation today. She has had multiple adverse effects from prednisone including falls and hyperglycemia. Will plan for Ozurdex for further therapy if needed.. OK to stay off of steroid drops. 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 Stressed BG control (HbA1C<7) to reduce the risk for diabetic ocular complications. Lab Results Component Value Date HGBA1C 6.8 (H) 07/17/2024 Assessment & Plan (12/25/2024 7:01 AM POLYSTYRENE BEAD MOLDER): She has persistent CME that is stable and non-central OS. Observe at this point, stressed BG control. Assessment & Plan (09/23/2024 9:54 PM POLYSTYRENE BEAD MOLDER): She is off of oral prednisone and [...] Arch support shoes with metatarsal pad from [employer] Hematoma and contusion 03/09/2023 [...] 06/11/2019 Assessment & Plan (12/09/2019 11:28 AM POLYSTYRENE BEAD MOLDER): Blood pressure much better controlled. She brought home log and cuff with her to today's visit and blood pressure 120-140 systolic and 70-80 diastolic. We will continue present medication regimen and refills will be sent to pharmacy. Assessment & Plan (11/11/2019 11:33 AM POLYSTYRENE BEAD MOLDER): Blood pressure remains elevated, but better controlled [...] weeks. Assessment & Plan (11/04/2019 5:05 PM POLYSTYRENE BEAD MOLDER): With uncontrolled blood pressure upon arrival to [...] 12/04/2023 Assessment & Plan (12/09/2019 12:18 PM POLYSTYRENE BEAD MOLDER): Patient reports issues of anxiety, tearfulness and depression with coping through her son's cancer and hospice care. Have discussed with patient and we will begin a low dose celexa. She will follow up in 6 weeks to determine effectiveness. She is to call with any questions or concerns. Grief support group encouraged Blurred vision 11/11/2019 08/22/2021 Assessment & Plan (11/11/2019 11:30 AM POLYSTYRENE BEAD MOLDER): Patient is reporting blurred vision worse in [...] 08/22/2021 Assessment & Plan (11/11/2019 11:29 AM POLYSTYRENE BEAD MOLDER): Improved s/p antibiotic eye drops. There is concern for possible allergic component as she reports occasional clear discharge and redness. She was encouraged to continue daily allergy pill and to see sheriffs detective for further evaluation. Assessment & Plan (11/04/2019 5:02 PM POLYSTYRENE BEAD MOLDER): Patient has erythema and mucoid discharge noted in left lower conjunctiva, with concern for possible bacterial conjunctivitis. Antibiotic ophthalmic solution sent. Patient instructed to use 2 drops in left eye QID x 5 days. If symptoms worsen or persist she was instructed to call. Immunizations Immunization Administration Dates Next Due COVID-19 MRNA ([employer]) .5 M L (50 MCG) VACCINE (12 YEARS AND UP) 08/02/2023 COVID-19 mRNA ([employer]) 0.3 m L (30 mcg) vaccine (12 [...] drink = 0.6 oz pur e alcohol) [facility] Utilities Answer Date Recorded In the past 12 months has [email or web address], [employer], oil, or water [employer] threatened to shut off services in your [...] 09/23/2024 How often do you attend chur or restorationist services? Never 09/23/2024 Do you belong to any clubs o r organizations such as catholic groups, unions, fraternal or athletic groups, or [...] staff should administer the PHQ-9) 1 07/24/2024 [facility] - Occupational Stress Questionnaire Answer Date [...] any time in the past 12 m [facility], were you homeless or living in a jail (including now)? No 09/23/2024 Personal Safety Answer Date Recorded Have you ever been in or are you currently in a harmful physical or emotional relationship or is someone making you feel afraid or unsafe? Denies 09/22/2024 Comments No Sex and Gender Information Value Date Recorded Sex Assigned at Not on file Legal Sex Female 11:43 AM POLYSTYRENE BEAD MOLDER Gender Identity Not on file Sexual Orientation Not on file Occupation Industry Job Start Date Job End Date retired Not on file Not on file Not on file Last Filed Vital Signs Vital Sign Reading Time Taken Comments Blood Pressure 139/74 12/25/2024 2:18 PM POLYSTYRENE BEAD MOLDER Pulse 88 12/25/2024 2:18 PM POLYSTYRENE BEAD MOLDER Temperature 36.7 C (98.1 F) 10/03/2024 2:53 PM POLYSTYRENE BEAD MOLDER Respiratory Rate 18 12/25/2024 2:18 PM POLYSTYRENE BEAD MOLDER Oxygen Saturation 93% 10/03/2024 2:53 PM POLYSTYRENE BEAD MOLDER Inhaled Oxygen Concentration - - Weight 64.9 kg (143 lb) 12/25/2024 2:18 PM POLYSTYRENE BEAD MOLDER Height 160 cm (5' 3) 12/25/2024 2:18 PM POLYSTYRENE BEAD MOLDER Body Mass Index 25.33 12/25/2024 2:18 PM POLYSTYRENE BEAD MOLDER Plan of Treatment Not on file Procedures Procedure Name Priority Date/Time Associated Diagnosis Comments OCT, RETINA - OU - BOTH EYES Routine 05/06/2025 11:42 AM CDT Intermediate uveitis of both eyes EGFR Routine 10/03/2024 9:15 AM POLYSTYRENE BEAD MOLDER HEMOGLOBIN A1C Routine 07/17/2024 8:05 AM CDT Type 2 diabetes mellitus without complication, without long-term current use of insulin (HCC) ALBUMIN CREATININE RATIO, URINE Routine 07/17/2024 8:05 AM CDT Type 2 diabetes mellitus without complication, without long-term current use of insulin (HCC) DEXA AXIAL SKELETON BONE DENSITY 1 OR MORE SITES Schedule Routine, Read Routine (OP Routine) 08/31/2023 12:55 PM POLYSTYRENE BEAD MOLDER Menopause LIPID PANEL Routine 04/20/2020 12:37 PM CDT Benign hypertension Multiple-type hyperlipidemia from Last 3 Months or Most Recently Relevant to Health Maintenance Results * OCT, Retina - OU - Both Eyes (05/06/2025 11:42 AM CDT) Anatomical Region Laterality Modality Head Optical Coherenc e Tomography Narrative 05/06/2025 11:42 AM CDT Right Eye Quality was good. Scan locations included subfoveal. Left Eye Quality was good. Scan locations included subfoveal. Notes OD: few nasal IR cysts, stable OS: rare temporal IR cysts, worse, not visually significant us Sandrine Mann OD OPHTH TOMOGRAPHY Final Res ult * eGFR (10/03/2024 9:15 AM POLYSTYRENE BEAD MOLDER) eGFR 63 >=60 mL/min/1. 73 m2 Comment: [...] last reviewed 2021. Blood 10/03/2024 9:15 AM POLYSTYRENE BEAD MOLDER 10/03/2024 9:28 AM POLYSTYRENE BEAD MOLDER us Geo Khanna MD LAB BLOOD ORDERABLES Final Resu lt [facility] [place] [facility] Department [place] [address] * Albumin Creatinine Ratio, Urine (07/17/2024 8:05 AM CDT) Pathologist [facility] Albumin Ur 13.7 mg/L Comment: Interpretive Data No reference range established. Current interpretive data was last revised 2019. Testing performed by: [address] [address] Creatinine Ur 121.0 mg/dL TAYO Comment: Interpretive Data No reference range established. Current interpretive data was last revised 2019. Testing performed by: [address] [address] Albumin Creatinine Ratio, Ur 11 1 - 29 mg/g TAYO Comment:Testing performed by : [address] [address] Urine 07/17/2024 8:05 AM CDT 07/17/2024 12:44 PM CDT us Marni Barbosa MD LAB URINE ORDERABLES Final Result [address] Department [place] [address] * (ABNORMAL) Hemoglobin A1c (07/17/2024 8:05 AM CDT) [facility] Hgb A1C 6.8(H) 4.0 - 5.6 % Comment:Testing performed by : [address] [address] Estimated Average Glucose 148 mg/dL TAYO Comment: The ADA recommends reporting an estimated Average Glucose (eAG) with all Hemoglobin A1c results using the equation derived from a study of 507 normal and diabetic adults. Minority populations were underrepresented and children were not included. (Diabetes Care 31:0183-0849, 2008). The eAG is not equivalent to a fasting glucose. Testing performed by: [address] [address] Blood 07/17/2024 8:05 AM CDT 07/17/2024 12:44 PM CDT us Marni Barbosa MD LAB BLOOD ORDERABLES Final Result [facility]O [place] [address] [address] Department [place] [address] * Dexa Axial Skeleton Bone Density 1 or 2 Site (08/31/2023 12:55 PM POLYSTYRENE BEAD MOLDER) Anatomical Region Laterality Modality Body N/A Other 08/31/2023 1:23 PM POLYSTYRENE BEAD MOLDER Narrative 08/31/2023 1:25 PM POLYSTYRENE BEAD MOLDER EXAM DESCRIPTION: DEXA AXIAL SKELETON BONE DENSITY 1 OR MORE SITES REASON FOR STUDY: 82 y/o year old F with given history of: menopause Osteoporosis screening Post menopausal Home Care Scheduler/Model: [employer] [place] (S/N [id number]) CLINICAL INFORMATION: Current height: 65.5 inches Maximum [...] Collin Vargas M.D. MF: HECTOR Report ID: [id number] Reading Location: [place] [address] Procedure Note Collin Vargas MD - 08/31/2023 EXAM DESCRIPTION: DEXA AXIAL SKELETON BONE DENSITY 1 OR MORE SITES REASON FOR STUDY: 82 y/o year old F with given history of: menopause Osteoporosis screening Post menopausal Home Care Scheduler/Model: [employer] [place] (S/N [id number]) CLINICAL INFORMATION: Current height: 65.5 inches Maximum [...] Collin Vargas M.D. MF: HECTOR Report ID: [id number] Reading Location: [place] [address] Marni Barbosa MD IMG DXA PROCEDURES Final [...] BLOOD ORDERABL ES Final Result T[facility]O [place] [address] [address] Department [place] [address] from Last 3 Months or Most Recently Relevant to Health Maintenance Insurance MEDICARE [employer] MEDICARE [employer] MEDICARE [employer] Advance Directives For more information, please contact: [phone] Documents on File Type Date Recorded Patient Harness Rigger Expl anation ADVANCE DIRECTIVE 04/30/2019 DNR ADVANCE DIRECTIVE 04/30/2019 POWER OF A [employer] * Full Code (Latest Code Status on File) Date Activated Date Inactivated Comments 09/22/2024 3:49 PM 10/03/2024 8:12 PM Care Teams Manager Express Relationship Specialty Start Date End Date Jag Burch MD [address] [place] [address] Ophthalmology 07/24/24 Homero Ordoñez NP [address] [place] [address] Nurse Practitioner Internal Medicine 11/13/24
--- OUTSIDE RECORDS SUMMARY | 2025-05-19 13:45 | XMS_ITS | Continuity of Care Document ---
Author Organization [facility] Address [address] [place] [address] [address] [place] [address] Phone Care Team Providers Care Safe Deposit Box Rental Clerk Name Role Phone Clementine Low OD Unavailable [...] Diagnoses Date Provider Providers Copied on Encounter [facility], [address] [place] [address] [address], [place], [place], [id number], tel:[phone] SEC Ryan [place] Professional 2 week s/p YAG PC (chief complaint) Post op visit 3 Devante CALI Clementine. [facility] [employer], [address], [place], [place], [address], [place]. tel:[phone] Referring Provider: Marni Barbosa MD, [address] [employer], [place], [address]. tel:[phone] [facility], [facility] [address], [place], [place], [id number], tel:[phone] SEC [place] Professional YAG PC (chief complaint) Presence of intraocular lensOther secondary cataract, left eye Mar-3 3 Gabino Lanier. [address] [facility] [place], [place], [id number], [place]. tel:[phone] Referring Provider: Marni Barbosa MD, [address] [place], [address]. tel:[phone] Office/outpa tient Visit, Est [facility], [facility] [address], [place], [place], [address], [place] tel:[phone] SEC Ryan [place] Professional Diabetic eye exam (chief complaint) Presence of intraocular lensType 2 diab with mild nonp rtnop without mclr edema, r eyeVitreous degeneration, right eyeOther secondary cataract, bilateralDry eye syndrome of bilateral lacrimal glandsOther secondary cataract, right eye Mar-0 3 Gabino Lanier. [address] [facility], [facility] [place], [place], [id number], [place]. tel:[phone] Referring Provider: Marni Barbosa MD, [address] [employer], [place], [address]. tel:[phone] [facility], [address] [place] [address] [address], [place], [place], [id number], [place] tel:[phone] SEC [facility] Professional diabetic eye exam (chief complaint) Presence of intraocular lensType 2 diab with mild nonp rtnop without mclr edema, r eye Apr- 1 Lloyd Yannick. [address] [facility], [address], [place], [place], [address], [place]. tel:[phone] Referring Provider: Marni Barbosa MD, [address] [employer], [place], [address]. tel:[phone] [facility], [address] [place], [place] [address]st [facility] [address], [place], [place], [id number], [place] tel:[phone] SEC [facility] Professional No Information b-0 0 Grant OD Luis. [address] [place] [address], [address] [place] [address], [place], [address], [place]. tel:[phone] Referring Provider: Marni Barbosa MD, [address] [employer], [place], [address]. tel:[phone] [facility], [facility] [employer] [address], [place], [place], [address], [place] tel:[phone] SEC [facility] Professional Complete Exam (chief complaint) Viral conjunctiviti s of both eyesAllergic conjunctiviti s of both eyesPresence of intraocular lensType 2 diabetes mellitus without complication, without long-term current use of insulin b-0 0 Grant OD Luis. [address] [place] [address], [address] [place] [address], [place], [address], [place]. tel:[phone] Referring Provider: Marni Barbosa MD, [address] [employer], [place], [address]. tel:[phone] [facility], [address] [place] [address] [address], [place], [place], [id number], [place] tel:[phone] SEC [place] Professional Burning (chief complaint) Viral conjunctiviti s of both eyesAllergic conjunctiviti s of both eyes 0 Grant Batistaic. [address] [facility], [address]th Floor, [place], [address], [place]. tel:[phone] Referring Provider: Marni Barbosa MD, [address], [place], [address]. tel:[phone] [facility] Eye [facility], [address] [place], [place], [place], [id number], [place] tel:[phone] SEC [place] Professiona l No Information 0 Gabino Lanier. [address] [facility], [address], [place], [place], [address], [place]. tel:[phone] Family History Family Member Type Diagnosis Age [...]
--- OUTSIDE RECORDS SUMMARY | 2025-05-19 13:45 | XMS_ITS | Clinical Summary ---
Author Organization [facility] [address] Address [address] [place] [address] Phone Care Team Providers Care Interior Design Professor Name Role Phone Jag Burch MD Unavailable [phone] Homero Ordoñez NP Unavailable [phone] Allergies No known active allergies Medications turmeric [...] 1 tablet (88 mcg total) by mouth devops architect before breakfast 90 tablet 2 07/24/20 24 Active blood glucose diagnostic (glucose blood) stripIndications:T ype 2 diabetes mellitus with stage 3b chronic kidney disease, without long-term current use of insulin ([facility]) Use to test blood glucose once daily. Dispense one touch Verio test strips 100 each 3 07/24/20 24 025 Active atorvastatin (LIPITOR) 40 mg tabletIndications: Type 2 diabetes mellitus with stage 3b chronic kidney disease, without long-term current use of insulin ([facility]),Multiple-typ e hyperlipidemia Take 1 tablet (40 mg [...] (three) times a day as needed 04/18/20 Active furosemide (LASIX) 20 mg tablet 1 tablet (20 mg total) 04/14/20 25 Active levothyroxine (SYNTHROID) 50 mcg tablet 1 tablet (50 mcg total) 04/19/20 25 Active potassium chloride ER 10 mEq CR tablet 04/29/20 25 Active Ozempic 0.25 mg or 0.5 mg (2 mg/3 mL) pen injector injection 05/01/20 Active Active Problems Problem Noted Date Diagnosed [...] By: Dorian Restrepo MD 09/25/2024 4:27:21 PM MANAGER BANK Moderate pulmonary hypertension 11/15/2024 Overview (11/15/2024): Discovered during hospitalization September 2025. Requested advice from Cardiology regarding further workup. Please refer to information under HFpEF Diarrhea 09/23/2024 Diabetic macular edema of left eye 09/23/2024 Assessment & Plan (12/25/2024 7:03 AM MANAGER BANK): Stable today. Will follow with OCT after stopping difluprednate drops Assessment & Plan (09/23/2024 9:58 PM MANAGER BANK): Resolved today with oral prednisone taper. Will follow with OCT as she has stopped prednisone. UTI (urinary tract infection) 09/22/2024 Assessment & Plan (09/22/2024 3:51 PM MANAGER BANK): Acute, found upon recent ER visit s/p [...] admit for UTI/dehydration. -accepted at [facility]. Weakness 09/22/2024 Assessment & Plan (09/22/2024 4:33 PM MANAGER BANK): Worse in the last 1-2 weeks but uncontrollable in the last 2 days. Likely related to questionable urosepsis, see plan for UTI above. Dehydration 09/22/2024 Assessment & Plan (09/22/2024 4:39 PM MANAGER BANK): Acute, found upon recent CMP done in ER s/p fall 4 days ago. Na 133, chloride 95, creatinine stable. Orthostatic BP dropped almost 30 points upon standing in office today. Oral mucous membranes are pale and dry, skin is pale, turgor is slow. Consulted with Dr. Barbosa in office today, she suggested direct admit, accepted by Dr. Freedman at [facility]. Orthostatic hypotension 09/22/2024 Assessment & Plan (09/22/2024 4:40 PM MANAGER BANK): Acute, + in office today. See plan for dehydration below. Accepted for direct admit to [facility]. 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 She has had multiple adverse effects from prednisone including falls and hyperglycemia. Will plan for Ozurdex for further therapy if needed.. OK to stay off of steroid drops. Assessment & Plan (09/23/2024 9:53 PM MANAGER BANK): She has no active inflammation today after [...] 07/17/2024 Assessment & Plan (12/25/2024 7:01 AM MANAGER BANK): She has persistent CME that is stable and non-central OS. Observe at this point, stressed BG control. Assessment & Plan (09/23/2024 9:54 PM MANAGER BANK): She is off of oral prednisone and [...] Arch support shoes with metatarsal pad from [employer] Hematoma and contusion 03/09/2023 [...] 06/11/2019 Assessment & Plan (12/09/2019 11:28 AM MANAGER BANK): Blood pressure much better controlled. She brought home log and cuff with her to today's visit and blood pressure 120-140 systolic and 70-80 diastolic. We will continue present medication regimen and refills will be sent to pharmacy. Assessment & Plan (11/11/2019 11:33 AM MANAGER BANK): Blood pressure remains elevated, but better controlled [...] weeks. Assessment & Plan (11/04/2019 5:05 PM MANAGER BANK): With uncontrolled blood pressure upon arrival to [...] 12/04/2023 Assessment & Plan (12/09/2019 12:18 PM MANAGER BANK): Patient reports issues of anxiety, tearfulness and depression with coping through her son's cancer and hospice care. Have discussed with patient and we will begin a low dose celexa. She will follow up in 6 weeks to determine effectiveness. She is to call with any questions or concerns. Grief support group encouraged Blurred vision 11/11/2019 08/22/2021 Assessment & Plan (11/11/2019 11:30 AM MANAGER BANK): Patient is reporting blurred vision worse in [...] 08/22/2021 Assessment & Plan (11/11/2019 11:29 AM MANAGER BANK): Improved s/p antibiotic eye drops. There is concern for possible allergic component as she reports occasional clear discharge and redness. She was encouraged to continue daily allergy pill and to see ad writer for further evaluation. Assessment & Plan (11/04/2019 5:02 PM MANAGER BANK): Patient has erythema and mucoid discharge noted in left lower conjunctiva, with concern for possible bacterial conjunctivitis. Antibiotic ophthalmic solution sent. Patient instructed to use 2 drops in left eye QID x 5 days. If symptoms worsen or persist she was instructed to call. Encounters Date Type Department Care Team Description 05/06/2025 11:30 AM CDT Imaging Exam [facility] [address] [place] [id number] Intermediate uveitis of both eyes 05/06/2025 11:30 AM CDT Office Visit [facility] [address] [place] [address] Sandrine Mann, OD Intermediate uveitis of both eyes (Primary Dx); Type 2 diabetes mellitus with chronic kidney disease, without long-term current use of insulin, unspecified CKD stage (HCC); 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) 04/06/2025 Orders Only [facility] [address] [place] [address] Sandrine Mann, OD Intermediate uveitis of both eyes (Primary Dx) 03/26/2025 Telephone [facility] [address] [place] [address] Marni Barbosa MD from Last [...] COLONOSCOPY 10/22/2016 - 10/21/2017 Single polyp in [place] Medical History Medical History Date Comments Diabetes [...] 0.6 oz pur e alcohol) [facility] Utilities Answer Date Recorded In the past 12 months has e [employer], gas, oil, or water [employer] threatened to shut off services in [...] often do you attend chur ch or anglican services? Never 09/23/2024 Do you belong to any clubs o r organizations such as mandaen groups, unions, fraternal or athletic groups, or [...] staff should administer the PHQ-9) 1 07/24/2024 [facility] - Occupational Stress Questionnaire Answer [...] any time in the past 12 m [facility], were you homeless or living [...] on file Legal Sex Female 11:43 AM MANAGER BANK Gender Identity Not on file Sexual Orientation [...] Comments Blood Pressure 139/74 12/25/2024 2:18 PM MANAGER BANK Pulse 88 12/25/2024 2:18 PM MANAGER BANK Temperature 36.7 C (98.1 F) 10/03/2024 2:53 PM MANAGER BANK Respiratory Rate 18 12/25/2024 2:18 PM MANAGER BANK Oxygen Saturation 93% 10/03/2024 2:53 PM MANAGER BANK Inhaled Oxygen Concentration - - Weight 64.9 kg (143 lb) 12/25/2024 2:18 PM MANAGER BANK Height 160 cm (5' 3) 12/25/2024 2:18 PM MANAGER BANK Body Mass Index 25.33 12/25/2024 2:18 PM MANAGER BANK Plan of Treatment Health Maintenance Due Date Last Done Comments Lipid Panel 04/20/2021 04/20/2020 Hemoglobin A1C 01/14/2025 07/17/2024, 01/0 05/2024, 04/26/2023, Additional history exists Covid-19 Vaccine (2023-2 5 season) 2025 08/07/2024, 01/26/2024, 01/26/2024, Additional history exists Influenza Vaccine (#1) 2025 , 07/19/2023, 07/19/2023, Additional history exists Albumin Creatinine Ratio, Urine [...] 10/01/2024, Additional history exists Dilated Eye Exam 05/06/2026 05/06/2025, 12/2024, 08/18/2024, Additional history exists DTaP/Tdap/Td Vaccine (2 - Td or Tdap) 06/22/2031 06/22/2021 Pneumococcal vaccine 65+ Completed 08/06/2020, 06/23 Zoster Vaccine Completed 02/01/2023, 11/10/2022 Hepatitis B Screening Completed 07/24/2024 Procedures Procedure Name Priority Date/Time Associated Diagnosis Comments OCT, RETINA - OU - BOTH EYES Routine 05/06/2025 11:42 AM CDT Intermediate uveitis of both eyes EGFR Routine 10/03/2024 9:15 AM MANAGER BANK HEMOGLOBIN A1C Routine 07/17/2024 8:05 AM CDT Type 2 diabetes mellitus without complication, without long-term current use of insulin (HCC) ALBUMIN CREATININE RATIO, URINE Routine 07/17/2024 8:05 AM CDT Type 2 diabetes mellitus without complication, without long-term current use of insulin (HCC) DEXA AXIAL SKELETON BONE DENSITY 1 OR MORE SITES Schedule Routine, Read Routine (OP Routine) 08/31/2023 12:55 PM MANAGER BANK Menopause LIPID PANEL Routine 04/20/2020 12:37 PM [...] Res ult * eGFR (10/03/2024 9:15 AM MANAGER BANK) eGFR 63 >=60 mL/min/1. 73 m2 Comment: [...] last reviewed 2021. Blood 10/03/2024 9:15 AM MANAGER BANK 10/03/2024 9:28 AM MANAGER BANK Geo Khanna MD LAB BLOOD ORDERABLES Final Resu lt TAYO [facility] [place] [address] * Albumin Creatinine Ratio, Urine (07/17/2024 8:05 AM CDT) Albumin Ur 13.7 mg/L Comment: Interpretive Data No reference range established. Current interpretive data was last revised 2019. Testing performed by: [facility], [address] [place] [address]., [id number] Creatinine Ur 121.0 mg/dL TAYO Comment: Interpretive Data No reference range established. Current interpretive data was last revised 2019. Testing performed by: [facility], [address] [place] [address]., [id number] Albumin Creatinine Ratio, Ur 11 1 - 29 mg/g TAYO Comment:Testing performed by : [facility], [address] [place] [address]., [id number] Urine 07/17/2024 8:05 AM CDT 07/17/2024 12:44 PM CDT Marni Barbosa MD LAB URINE ORDERABLES Final Result Performing Organization Address City/[facility]/ZIP Co de Phone Number TAYO [address] Department [place] [address] * (ABNORMAL) Hemoglobin A1c (07/17/2024 8:05 AM CDT) Hgb A1C 6.8(H) 4.0 - 5.6 % Comment:Testing performed by : [address] [address] Estimated Average Glucose 148 mg/dL TAYO Comment: The ADA recommends reporting an estimated Average Glucose (eAG) with all Hemoglobin A1c results using the equation derived from a study of 507 normal and diabetic adults. Minority populations were underrepresented and children were not included. (Diabetes Care 31:9459-0281, 2008). The eAG is not equivalent to a fasting glucose. Testing performed by: [facility], [address] [place] [address]., [address] Blood 07/17/2024 8:05 AM CDT 07/17/2024 12:44 PM CDT us Marni Barbosa MD LAB BLOOD ORDERABLES Final Result [facility] [address] [facility] [place] [address] * Dexa Axial Skeleton Bone Density 1 or 2 Site (08/31/2023 12:55 PM MANAGER BANK) Anatomical Region Laterality Modality Body N/A Other 08/31/2023 1:23 PM MANAGER BANK Narrative 08/31/2023 1:25 PM MANAGER BANK EXAM DESCRIPTION: DEXA AXIAL SKELETON BONE DENSITY 1 OR MORE SITES REASON FOR STUDY: 82 y/o year old F with given history of: menopause Osteoporosis screening Post menopausal Tire Mechanic/Model: Eachbaby Discovery SL (S/N [id number]) CLINICAL INFORMATION: Current height: 65.5 inches Maximum [...] Collin Vargas M.D. MF: HECTOR Report ID: [id number] Reading Location: [place] [address] Procedure Note Collin Vargas MD - 08/31/2023 EXAM DESCRIPTION: DEXA AXIAL SKELETON BONE DENSITY 1 OR MORE SITES REASON FOR STUDY: 82 y/o year old F with given history of: menopause Osteoporosis screening Post menopausal Tire Mechanic/Model: Eachbaby Discovery SL ([id number]/N [id number]) CLINICAL INFORMATION: Current height: 65.5 inches Maximum [...] Collin Vargas M.D. MF: HECTOR Report ID: [id number] Reading Location: [place] [address] Marni Barbosa MD IMG DXA PROCEDURES Final R esult * (ABNORMAL) Lipid panel (04/20/2020 12:37 PM CDT) [facility] Cholesterol 154 30 - 199 mg/dL TAYO [...] revised on 2018. Chol/HDL ratio 4 TAYO [place] Blood specimen (specimen) 04/20/2020 12:37 PM CDT 04/20/2020 12:39 PM CDT us Luci Barcenas NP LAB BLOOD ORDERABL ES Final Result [facility] [place] [address] [address] [place] [address] from Last 3 Months or Most Recently Relevant to Health Maintenance Insurance MEDICARE [employer] MEDICARE [employer] MEDICARE [employer] Advance Directives For more information, please contact: [phone] Documents on File Type Date Recorded Patient Watch Repair Technician Expl anation ADVANCE DIRECTIVE 04/30/2019 DNR ADVANCE DIRECTIVE 04/30/2019 POWER OF A [employer] * Full Code (Latest Code Status on File) Date Activated Date Inactivated Comments 09/22/2024 3:49 PM 10/03/2024 8:12 PM Care Teams Interior Design Professor Relationship Specialty Start Date End Date Jag Burch MD [address] [place] [address] Ophthalmology 07/24/24 Homero Ordoñez NP [address] [place] [address] Nurse Practitioner Internal Medicine 11/13/24
--- NOTE | 2025-05-19 13:56 | ECHO_ITS ---
Patient Info Name: Marielos Kimbrough Age: 84 years : 1940 Gender: Female Ht: 65 in Wt: 153 lbs BSA: 1.80 m2 HR: 84 bpm BP: 212 / 98 mmHg Technical Quality: Good Exam Date: 05/19/2025 1:57 PM Patient Status: O Admit Date: 05/19/2025 Exam Type: CA echo doppler color flow Complete two-dimensional, color flow and Doppler transthoracic echocardiogram is performed. Tone Cabinet Assembler: Barb Schmidt Attending Provider: Slim Holt MD Summary 1. Complete two-dimensional, color flow and Doppler transthoracic echocardiogram is performed. 2. Left ventricular chamber dimension is normal. 3. Left ventricular systolic function is normal, estimated at 55-60. 4. There is mild concentric increased left ventricular wall thickness. 5. The left ventricular diastolic function is abnormal. 6. E/e' 10 is mildly elevated. 7. Left atrial chamber dimension is mildly enlarged. 8. There is mild aortic valve sclerosis. 9. There is trace aortic valve regurgitation. 10. There is mild mitral valve regurgitation. 11. There is trace tricuspid valve regurgitation. 12. No pulmonary hypertension, estimated pulmonary arterial systolic pressure is 30 mmHg. Left Ventricle E/e' 10 is mildly elevated. Left ventricular chamber dimension is normal. Left ventricular systolic function is normal, estimated at 55-60. There is mild concentric increased left ventricular wall thickness. The left ventricular diastolic function is abnormal. Right Ventricle Right ventricular chamber dimension is normal. Right ventricular systolic function is normal and with normal TAPSE 2.0 cm. Left Atria Left atrial chamber dimension is mildly enlarged. Right Atria Right atrial chamber dimension is normal. Aortic Valve The aortic valve is trileaflet. There is mild aortic valve sclerosis. There is no aortic valve stenosis. There is trace aortic valve regurgitation. Pulmonic Valve There is no pulmonic regurgitation. Mitral Valve There is no mitral valve stenosis. There is mild mitral valve regurgitation. Tricuspid Valve There is trace tricuspid valve regurgitation. No pulmonary hypertension, estimated pulmonary arterial systolic pressure is 30 mmHg. Pericardium/Pleural There is no pericardial effusion. Inferior Vena Cava Normal inferior vena cava with >50% collapse upon inspiration consistent with normal right atrial pressure, 5 mmHg. Aorta The aortic root size at the sinus of Valsalva is normal. Left Ventricular Outflow Tract Name Value Normal LVOT 2D LVOT Diameter 2.0 cm LVOT Doppler LVOT Peak Velocity 49 cm/s LVOT Peak Gradient 1 mmHg LVOT Mean Gradient 0 mmHg LVOT VTI 9 cm LVOT VTI/AV VTI Ratio 0.3 LVOT Stroke Volume 30 ml LVOT CO 2.3 l/min LVOT CI 1.3 l/min/m2 Pulmonic Valve Name Value Normal RVOT Doppler RVOT Peak Velocity 82 cm/s RVOT Peak Gradient 3 mmHg PV Doppler PV Peak Velocity 107 cm/s PV Peak Gradient 5 mmHg Mitral Valve Name Value Normal MV Diastolic Function MV E Peak Velocity 119 cm/s MV A Peak Velocity 1 cm/s MV E/A 101.8 MV Decel Time (PW) 78 ms MV Annular TDI MV E/e' (Septal) 14.3 MV E/e' (Lateral) 8.4 MV E/e' (Average) 11.3 Tricuspid Valve Name Value Normal TV Regurgitation Doppler TR Peak Velocity 249 cm/s TR Peak Gradient 25 mmHg Estimated PAP/RSVP RA Pressure 5 mmHg <=5 PA Systolic Pressure 30 mmHg <36 RV Systolic Pressure 30 mmHg <36 TV Annular TDI TV Lateral Meagan s' Velocity 8.2 cm/s >=9.5 Aorta Name Value Normal Ascending Aorta Ao Root Diameter (MM) 2.9 cm Ao Root Diam Index (MM) 1.6 cm/m2 Aortic Valve Name Value Normal AV Doppler AV Peak Velocity 138 cm/s AV Peak Gradient 8 mmHg AV Mean Gradient 4 mmHg AV VTI 28 cm AV Area (Cont Eq VTI) 1.1 cm2 >=3.0 AV Area (Cont Eq Sammy) 1.1 cm2 AV DI (Sammy) 0.35 AV Regurgitation 2D LVOT Area 3.3 cm2 Ventricles Name Value Normal LV Dimensions 2D/MM IVS Diastolic Thickness (2D) 1.3 cm 0.6-1.0 LVID Diastole (2D) 3.9 cm 3.8-5.2 LVIW Diastolic Thickness (2D) 1.2 cm 0.6-0.9 LVID Systole (2D) 2.8 cm 2.2-3.5 LVOT Diameter 2.0 cm LV Mass (2D Cubed) 172.59 g 67.00-162.00 LV Mass Index (2D Cubed) 96 g/m2 43-95 Relative Wall Thickness (2D) 0.63 <=0.42 LV Fractional Shortening/Ejection Fraction 2D/MM LV Fractional Shortening (2D) 28 % 27-45 LV EF (2D Teichholz) 55 % LV Diastolic Volume (4C MOD) 75 ml LV EF (4C MOD) 41 % LV Diastolic Volume (2C MOD) 58 ml LV EF (2C MOD) 47 % LV Diastolic Volume (BP MOD) 67 ml 46-106 LV Diastolic Volume Index (BP MOD) 37 ml/m2 29-61 LV Systolic Volume (BP MOD) 37 ml 14-42 LV Systolic Volume Index (BP MOD) 21 ml/m2 8-24 LV EF (BP MOD) 45 % 54-74 LV Diastolic Length (4C) 7.3 cm LV Systolic Length (4C) 6.4 cm LV Stroke Volume (4C MOD) 31 ml Atria Name Value Normal LA Dimensions LA Dimension (MM) 4.6 cm 2.7-3.8 LA Volume (4C A-L) 66 ml LA Volume (BP A-L) 69 ml RA Dimensions RA Systolic Major [place] Length (4C) 4.8 cm 2.2-2.8 RA Area (4C) 11.1 cm2 <=18.0 Report Signatures
== END 2025-05-19 13:40 | disposition home or self-care (01) ==
LOC: CHSIMG 13:42
PROVIDERS: PCP Family Medicine; Visit Provider Family Medicine
DX: I50.9 Heart failure, unspecified (principal); I35.8 Other nonrheumatic aortic valve disorders; I34.0 Nonrheumatic mitral (valve) insufficiency
CPT/HCPCS: 93306

== ENCOUNTER 2025-06-01 13:41 | Outpatient (CLI) | payer MEDICARE, SELFPAY ==
--- OUTSIDE RECORDS SUMMARY | 2025-06-01 13:59 | XMS_ITS | Clinical Summary ---
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 Dispense one touch Verio test strips 100 each 3 07/24/20 24 025 Active atorvastatin (LIPITOR) 40 mg tabletIndications: Type 2 diabetes mellitus with stage 3b chronic kidney disease, without long-term current use of insulin ([facility]),Multiple-typ e hyperlipidemia Take 1 tablet (40 [...] Dorian Restrepo MD 09/25/2024 4:27:21 PM MEDIA RELATIONS DIRECTOR Moderate pulmonary hypertension 11/15/2024 Overview (11/15/2024): Discovered during hospitalization September 2025. Requested advice from Cardiology regarding further workup. Please refer to information under HFpEF Diarrhea 09/23/2024 Diabetic macular edema of left eye 09/23/2024 Assessment & Plan (12/25/2024 7:03 AM MEDIA RELATIONS DIRECTOR): Stable today. Will follow with OCT after stopping difluprednate drops Assessment & Plan (09/23/2024 9:58 PM MEDIA RELATIONS DIRECTOR): Resolved today with oral prednisone taper. Will follow with OCT as she has stopped prednisone. UTI (urinary tract infection) 09/22/2024 Assessment & Plan (09/22/2024 3:51 PM MEDIA RELATIONS DIRECTOR): Acute, found upon recent ER visit s/p [...] admit for UTI/dehydration. -accepted at [facility]. Weakness 09/22/2024 Assessment & Plan (09/22/2024 4:33 PM MEDIA RELATIONS DIRECTOR): Worse in the last 1-2 weeks but uncontrollable in the last 2 days. Likely related to questionable urosepsis, see plan for UTI above. Dehydration 09/22/2024 Assessment & Plan (09/22/2024 4:39 PM MEDIA RELATIONS DIRECTOR): Acute, found upon recent CMP done in ER s/p fall 4 days ago. Na 133, chloride 95, creatinine stable. Orthostatic BP dropped almost 30 points upon standing in office today. Oral mucous membranes are pale and dry, skin is pale, turgor is slow. Consulted with Dr. Barbosa in office today, she suggested direct admit, accepted by Dr. Freedman at [facility]. Orthostatic hypotension 09/22/2024 Assessment & Plan (09/22/2024 4:40 PM MEDIA RELATIONS DIRECTOR): Acute, + in office today. See plan for dehydration below. Accepted for direct admit to [facility]. Intermediate uveitis of both eyes [...] OU Assessment & Plan (12/25/2024 7:02 AM MEDIA RELATIONS DIRECTOR): She has no active inflammation today. She has had multiple adverse effects from prednisone including falls and hyperglycemia. Will plan for Ozurdex for further therapy if needed.. OK to stay off of steroid drops. Assessment & Plan (09/23/2024 9:53 PM MEDIA RELATIONS DIRECTOR): She has no active inflammation today after [...] 07/17/2024 Assessment & Plan (12/25/2024 7:01 AM MEDIA RELATIONS DIRECTOR): She has persistent CME that is stable and non-central OS. Observe at this point, stressed BG control. Assessment & Plan (09/23/2024 9:54 PM MEDIA RELATIONS DIRECTOR): She is off of oral prednisone and [...] Arch support shoes with metatarsal pad from [employer] Hematoma and contusion 03/09/2023 [...] Assessment & Plan (12/09/2019 11:28 AM MEDIA RELATIONS DIRECTOR): Blood pressure much better controlled. She brought home log and cuff with her to today's visit and blood pressure 120-140 systolic and 70-80 diastolic. We will continue present medication regimen and refills will be sent to pharmacy. Assessment & Plan (11/11/2019 11:33 AM MEDIA RELATIONS DIRECTOR): Blood pressure remains elevated, but better controlled [...] Assessment & Plan (11/04/2019 5:05 PM MEDIA RELATIONS DIRECTOR): With uncontrolled blood pressure upon arrival to [...] Assessment & Plan (12/09/2019 12:18 PM MEDIA RELATIONS DIRECTOR): Patient reports issues of anxiety, tearfulness and depression with coping through her son's cancer and hospice care. Have discussed with patient and we will begin a low dose celexa. She will follow up in 6 weeks to determine effectiveness. She is to call with any questions or concerns. Grief support group encouraged Blurred vision 11/11/2019 08/22/2021 Assessment & Plan (11/11/2019 11:30 AM MEDIA RELATIONS DIRECTOR): Patient is reporting blurred vision worse in [...] Assessment & Plan (11/11/2019 11:29 AM MEDIA RELATIONS DIRECTOR): Improved s/p antibiotic eye drops. There is concern for possible allergic component as she reports occasional clear discharge and redness. She was encouraged to continue daily allergy pill and to see biomass technician for further evaluation. Assessment & Plan (11/04/2019 5:02 PM MEDIA RELATIONS DIRECTOR): Patient has erythema and mucoid discharge noted in left lower conjunctiva, with concern for possible bacterial conjunctivitis. Antibiotic ophthalmic solution sent. Patient instructed to use 2 drops in left eye QID x 5 days. If symptoms worsen or persist she was instructed to call. Encounters Date Type Department Care Team Description 05/06/2025 11:30 AM CDT Imaging Exam [facility] [address] [place] [id number] Intermediate uveitis of both eyes 05/06/2025 11:30 AM CDT Office Visit [facility] [address] [place] [address] Sandrine Mann, OD Intermediate uveitis of both eyes (Primary Dx); Type 2 diabetes mellitus with chronic kidney disease, without long-term current use of insulin, unspecified CKD stage (HCC); 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) 04/06/2025 Orders Only [facility] [address] [place] [address] Sandrine Mann, OD Intermediate uveitis of both eyes (Primary Dx) 03/26/2025 Telephone [facility] [address] [place] [address] Marni Barbosa MD from Last [...] COLONOSCOPY 10/22/2016 - 10/21/2017 Single polyp in [place] Medical History Medical History Date Comments Diabetes [...] 0.6 oz pur e alcohol) [facility] Utilities Answer Date Recorded In the past 12 months has e [employer], gas, oil, or water [email or web address] threatened to shut off services in your home? No 09/23/2024 Social Connection and Isolation Panel Answer Date Recorded In a typical week, how many times do you talk on the phone with family, friends, or neighbors? Three times a week 09/23/2024 How often do you get togethe r with friends or relatives? Once a week 09/23/2024 How often do you attend chur ch or roman catholic services? Never 09/23/2024 Do you belong to any clubs o r organizations such as faith groups, unions, fraternal or athletic groups, or [...] staff should administer the PHQ-9) 1 07/24/2024 [facility] - Occupational Stress Questionnaire Answer Date Recorded [...] in the past 12 m [facility], were you homeless or living in a chcf (including now)? No 09/23/2024 Personal Safety Answer Date Recorded Have you ever been in or are you currently in a harmful physical or emotional relationship or is someone making you feel afraid or unsafe? Denies 09/22/2024 Comments No Sex and Gender Information Value Date Recorded Sex Assigned at Not on file Legal Sex Female 11:43 AM MEDIA RELATIONS DIRECTOR Gender Identity Not on file Sexual Orientation [...] Blood Pressure 139/74 12/25/2024 2:18 PM MEDIA RELATIONS DIRECTOR Pulse 88 12/25/2024 2:18 PM MEDIA RELATIONS DIRECTOR Temperature 36.7 C (98.1 F) 10/03/2024 2:53 PM MEDIA RELATIONS DIRECTOR Respiratory Rate 18 12/25/2024 2:18 PM MEDIA RELATIONS DIRECTOR Oxygen Saturation 93% 10/03/2024 2:53 PM MEDIA RELATIONS DIRECTOR Inhaled Oxygen Concentration - - Weight 64.9 kg (143 lb) 12/25/2024 2:18 PM MEDIA RELATIONS DIRECTOR Height 160 cm (5' 3) 12/25/2024 2:18 PM MEDIA RELATIONS DIRECTOR Body Mass Index 25.33 12/25/2024 2:18 PM MEDIA RELATIONS DIRECTOR Plan of Treatment Health Maintenance Due Date [...] eyes EGFR Routine 10/03/2024 9:15 AM MEDIA RELATIONS DIRECTOR HEMOGLOBIN A1C Routine 07/17/2024 8:05 AM CDT Type 2 diabetes mellitus without complication, without long-term current use of insulin (HCC) ALBUMIN CREATININE RATIO, URINE Routine 07/17/2024 8:05 AM CDT Type 2 diabetes mellitus without complication, without long-term current use of insulin (HCC) DEXA AXIAL SKELETON BONE DENSITY 1 OR MORE SITES Schedule Routine, Read Routine (OP Routine) 08/31/2023 12:55 PM MEDIA RELATIONS DIRECTOR Menopause LIPID PANEL Routine 04/20/2020 12:37 PM [...] temporal IR cysts, worse, not visually significant Sandrine Mann OD OPHTH TOMOGRAPHY Final Res ult * eGFR (10/03/2024 9:15 AM MEDIA RELATIONS DIRECTOR) eGFR 63 >=60 mL/min/1. 73 m2 Comment: [...] reviewed 2021. Blood 10/03/2024 9:15 AM MEDIA RELATIONS DIRECTOR 10/03/2024 9:28 AM MEDIA RELATIONS DIRECTOR Geo Khanna MD LAB BLOOD ORDERABLES Final Resu lt Performing Organization Address City/[facility]/ZIP Co de Phone Number TAYO [facility] [address] [facility] Department [place] [address] * Albumin Creatinine Ratio, Urine (07/17/2024 8:05 AM CDT) Albumin Ur 13.7 mg/L Comment: Interpretive Data No reference range established. Current interpretive data was last revised 2019. Testing performed by: [address] [address] Creatinine Ur 121.0 mg/dL TAYO Comment: Interpretive Data No reference range established. Current interpretive data was last revised 2019. Testing performed by: [facility], [address] [place] [address]., [id number] Albumin Creatinine Ratio, Ur 11 1 - 29 mg/g TAYO Comment:Testing performed by : [facility], [address] [place] [address]., [id number] Urine 07/17/2024 8:05 AM CDT 07/17/2024 12:44 PM CDT Marni Barbosa MD LAB URINE ORDERABLES Final Result Performing Organization Address [facility] Co de Phone Number TAYO [address] Department [place] [address] * (ABNORMAL) Hemoglobin A1c (07/17/2024 8:05 AM CDT) Hgb A1C 6.8(H) 4.0 - 5.6 % Comment:Testing performed by : [address] [address] Estimated Average Glucose 148 mg/dL TAYO Comment: The ADA recommends reporting an estimated Average Glucose (eAG) with all Hemoglobin A1c results using the equation derived from a study of 507 normal and diabetic adults. Minority populations were underrepresented and children were not included. (Diabetes Care 31:9242-5810, 2008). The eAG is not equivalent to a fasting glucose. Testing performed by: [facility], [address] [place] [address]., [id number] Blood 07/17/2024 8:05 AM CDT 07/17/2024 12:44 PM CDT us Marni Barbosa MD LAB BLOOD ORDERABLES Final Result TAYO [address] [facility] Department [place] [address] * Dexa Axial Skeleton Bone Density 1 or 2 Site (08/31/2023 12:55 PM MEDIA RELATIONS DIRECTOR) Anatomical Region Laterality Modality Body N/A Other 08/31/2023 1:23 PM MEDIA RELATIONS DIRECTOR Narrative 08/31/2023 1:25 PM MEDIA RELATIONS DIRECTOR EXAM DESCRIPTION: DEXA AXIAL SKELETON BONE DENSITY 1 OR MORE SITES REASON FOR STUDY: 82 y/o year old F with given history of: menopause Osteoporosis screening 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 MF: HECTOR Report ID: [id number] Reading Location: [place] [address] Marni Barbosa MD IM DXA PROCEDURES Final R esult * (ABNORMAL) Lipid panel (04/20/2020 12:37 PM CDT) [facility] Cholesterol 154 30 - 199 mg/dL TAYO [...] BLOOD ORDERABL ES Final Result TAYO [place] [address] [address] Department [place] [address] from Last 3 Months or Most Recently Relevant to Health Maintenance Insurance MEDICARE [facility] Address: [address] [address] [employer] Medical MEDICARE [employer] Medical MEDICARE [facility] Address: [address] [address] [place] [address] [employer] Advance Directives For more information, please contact: [phone] Documents on File Type Date Recorded Patient Assisted Living Assistant Expl anation ADVANCE DIRECTIVE 04/30/2019 DNR ADVANCE DIRECTIVE 04/30/2019 POWER OF A [employer] * Full Code (Latest Code Status on File) Date Activated Date Inactivated Comments 09/22/2024 3:49 PM 10/03/2024 8:12 PM Care Teams Civil Litigation Attorney Relationship Specialty Start Date End Date Jag Burch MD [address] [place] [address] Ophthalmology 07/24/24 Homero Ordoñez NP [address] [place] [address] Nurse Practitioner Internal Medicine 11/13/24
[2025-06-01 14:05] LABS: Hemoglobin A1C 7.6 % (<5.7)
== END 2025-06-01 13:42 | disposition home or self-care (01) ==
LOC: CHSLAB 13:43
PROVIDERS: PCP Family Medicine; Visit Provider Family Medicine
DX: E11.9 Type 2 diabetes mellitus without complications (principal)
CPT/HCPCS: 36415; 83036

== ENCOUNTER 2025-08-26 09:56 | Outpatient (CLI) | payer MEDICARE, SELFPAY ==
--- OUTSIDE RECORDS SUMMARY | 2023-02-06 07:45 | XMS_ITS | Continuity of Care Document ---
Author Organization [facility] Address [address] [place] [address] [address] [place] [address] Phone Care Team Providers Care Office Machine Service Supervisor Name Role Phone Clementine Low OD Unavailable Unavailable Allergies, Adverse Reactions, Alerts Substance Reaction Status Criticality No Known Allergies Active No Inform ation Medications Medication Instructions Dosage Effective Dates (start - stop) Status Comments citalopram 10 mg tablet take 1 tablet by oral route every day 10 MG - Active Ozempic 0.25 mg or 0.5 mg (2 mg/1.5 mL) subcutaneous pen injector inject (0.25MG) by subcutaneous route every week for 4 weeks then inject 0.5 mg subcutaneously once weekly using rotating injectionsites - Active Norvasc 2.5 mg tablet take 1 tablet by oral route every day 2.5 MG - Active Lipitor 10 mg tablet take 1 tablet by or al route every day 10 MG - Active Glucotrol 5 mg tablet take 1 tablet by oral route 2 times every day before meals - Active Zestoretic 10 mg-12.5 mg tablet take 1 tablet by oral route every day 1.00 tablet - Active Glucophage 500 mg tablet take 1 tablet by oral route 2 times every day with morning and evening meals - Active Tirosint 88 mcg capsule take 1 capsule by oral route every day 88 MCG - Active Procedures Procedure Date No Charge Refraction Post-op Follow-up Visit No Charge Refraction After Cataract Laser Surgery Fundus Photography W/ Report No Charge Refraction After Cataract Laser Surgery Office/outpatient Visit, Est Fundus Photography W/ Report Eye Exam & Treatment Petar Eye Mask Eye Exam & Treatment Eye Exam, New Patient Advance Directives Directive Yes / No Effective Date File Name No Information Encounters Encounter Description Practice Location Reason(s) For Visit Diagnoses Date Provider Providers Copied on Encounter [facility], [address] [place] [address] [employer] [address], [place], [place], [id number], tel:[phone] SEC Ryan [place] Professional 2 week s/p YAG PC (chief complaint) Post op visit 3 Devante CALI Clementine. [facility] [address], [address], [place], [place], [address], [place]. tel:[phone] Referring Provider: Marni Barbosa MD, [address], [place], [address]. tel:[phone] [facility], [facility] [address], [place], [place], [address], tel:[phone] SEC Ryan [place] Professional YAG PC (chief complaint) Presence of intraocular lensOther secondary cataract, left eye Mar-3 3 Gabino Lanier. [address] [facility] [place], [address], [place]. tel:[phone] Referring Provider: Marni Barbosa MD, [address] [place], [address]. tel:[phone] Office/outpa tient Visit, Est [facility], [facility] [address], [place], [place], [address], [place] tel:[phone] SEC Ryan [place]ERS Professional Diabetic eye exam (chief complaint) Presence of intraocular lensType 2 diab with mild nonp rtnop without mclr edema, r eyeVitreous degeneration, right eyeOther secondary cataract, bilateralDry eye syndrome of bilateral lacrimal glandsOther secondary cataract, right eye Mar-0 3 Gabino Lanier. [address] [facility], [facility] [place], [address], [place]. tel:[phone] Referring Provider: Marni Barbosa MD, [address], [place], [address]. tel:[phone] [facility], [address] [place] [address] [address], [place], [place], [address], [place] tel:[phone] SEC [facility] Professional diabetic eye exam (chief complaint) Presence of intraocular lensType 2 diab with mild nonp rtnop without mclr edema, r eye Apr- 1 Lloyd Yannick. [address] [facility], [address], [place], [place], [address], [place]. tel:[phone] Referring Provider: Marni Barbosa MD, [address], [place], [address]. tel:[phone] [facility], [address] [place], [place] [address]st [facility] [address], [place], [place], [address], [place] tel:[phone] SEC [facility] Professional No Information b-0 0 Grant OD Luis. [address] [place] [address], [address] [place] [address], [place], [address], [place]. tel:[phone] Referring Provider: Marni Barbosa MD, [address], [place], [address]. tel:[phone] [facility], [facility] [employer] [address], [place], [place], [address], [place] tel:[phone] SEC [facility] Professional Complete Exam (chief complaint) Viral conjunctiviti s of both eyesAllergic conjunctiviti s of both eyesPresence of intraocular lensType 2 diabetes mellitus without complication, without long-term current use of insulin b-0 0 Grant OD Luis. [address] [place] [address], [address] [place] [address], [place], [address], [place]. tel:[phone] Referring Provider: Marni Barbosa MD, [address], [place], [address]. tel:[phone] [facility], [address] [place] [address] [address], [place], [place], [address], [place] tel:[phone] SEC Ryan [place] Professional Burning (chief complaint) Viral conjunctiviti s of both eyesAllergic conjunctiviti s of both eyes 0 Grant Batistaic. [address] [facility], 6th Floor, [place], [address], [place]. tel:[phone] Referring Provider: Marni Barbosa MD, [address], [place], [address]. tel:[phone] [facility] Eye [facility], [address], [place], [place], [address], [place] tel:[phone] SEC [place] Professiona l No Information 0 Gabino Lanier. [address] [facility], [address], [place], [place], [address], [place]. tel:[phone] Family History Family Member Type Diagnosis Age At Onset No Information Payers Payer name Insurance type Covered green party ID Authoriza tion(s) No Information Social History Type Description Quantity Date Captured Comments Alcohol Use Details No Caffeine Use Details Tobacco Use Status Current non-smoker Smoking Status Never smoker Non-Smoking Tobacco Use Details : No Details Available : No Details Available Sex Female Chief Complaint And Reason For Visit From encounter dated '02/06/2023 13:45'. 2 week s/p YAG PC (chief complaint). Description: The 82 year old patient presents for evaluation of 2 week s/p YAG PC in the left eye. Patient states VA seems cloudy she has been using gel gtts and thinks that maybe the problem. Reason For Referral Reason For Referral No Information Plan Of Treatment Date Type Action Status Patient Education Learning About Vitreous Detachment completed Patient Education Diabetic Retinopathy: C are Instructio~ completed History Of Present Illness Encounter Date Complaint History Of Prese nt Illness 2 week s/p YAG PC The 82 year ol d patient presents for evaluation of 2 week s/p YAG PC in the left eye. Patient states VA seems cloudy she has been using gel gtts and thinks that maybe the problem. YAG PC The 82 year old patient presents for evaluation of YAG PC in the left eye and 3 week s/p YAG PC OD. Patient states VA seems about the same. Patient states she is having a lot of issues with allergies. c/o with the left eye is difficulty seeing in bright sunlight and seeing street signs. Diabetic eye exam The 82 year ol d patient presents for evaluation of Diabetic eye exam in the right eye and left eye. Patient states eyes are burning and itching pretty bad. Patient states she has difficulty seeing in bright sunlight and trouble seeing road signs far away. Patient using Refresh prn. Patient is a Type 2 diab, BS checked a couple days ago @ 124, a1c 7.2, and PCP treats her diab. diabetic eye exam The 80 year ol d female presents for a complete Type II diabetic exam ou. Patient is pseudo ou. Patient states BS was 175 after dinner last night. PCP treats DM. Patient states she has allergies and sometimes eyes will water and burn. Complete Exam The 79 year old female presents for evaluation of Complete Exam in the right eye and left eye. Hx of PCIOL OU and diab. Patient states eyes are still burning and itching OU. Patient using OCuSOFT scrubs, art tear prn OU and Zaditor qd OU. Patient is a Type 2 diab x 10 years, NOT on Insulin, BS checked yesterday @ 223, a1c 7.5, and PCP treats her diab. Burning The 79 year old female presents for evaluation of Burning and Itching in the right eye and left eye. Hx of PCIOL OU. Patient states Dr. Barcenas referred her here due to Acute Conjunctivitis in both eyes. Patient states her eyes have been burning and itching over the last couple of weeks. Patient seen Dr. Rasmussen and was given Poly to use for 5 days 4 times a day OU. Patient used the gtt as directed f/u with PCP due to still having the issues PCP wanted her to see an eye doctor. Dr. Barcenas is working for Dr. Barbosa due to Chelsey being out due to a surgery. Patient is a Type 2 diab x 10 years, NOT on Insulin, BS checked a couple of days ago @ 200's, a1c 7.5, and PCP treats her diab. Functional Status Date Functional Assessmen t No Information Instructions Date Instruction Additional Infor dani Impression/Plan Impression/Plan Impression/Plan Impression/Plan Impression/Plan Impression/Plan Assessments Type Assessment Date assessment Post op visit Patient Care Teams Name Effective Dates (start - stop) Status Members No Information
[2025-08-26 10:31] LABS: Add Urine Microscopic? YES; Glucose Urine UA 3+ (Negative); Leukocyte Esterase Ur 1+ (Negative); Nitrate Urine Negative (Negative); Specific Grav Ur 1.015 (1.010-1.020)
[2025-08-26 10:32] LABS: Hematocrit 39.1 % (35.0-42.0); Hemoglobin 12.6 g/dL (11.7-13.8); Mean Corpuscular HGB Conc 32.2 g/dL (32-36); Mean Corpuscular Hemoglobin 28.4 pg (27.0-31.0); Mean Corpuscular Volume 88.1 fL (78.0-102.0); Platelet Count Result 258 K/mm3 (150-420); Red Blood Count 4.44 M/mm3 (4.20-5.40); White Blood Count 8.0 K/mm3 (4.8-10.8)
[2025-08-26 10:40] LABS: Appearance Urine Sl Cloudy (Clear)
[2025-08-26 10:44] LABS: Hemoglobin A1C 8.4 % (<5.7)
[2025-08-26 10:56] LABS: MALB Creatinine Ratio 13.7 mg/g (0-30)
[2025-08-26 11:00] LABS: Alanine Aminotransferase 16 U/L (6-35); Albumin Level 4.6 g/dL (3.5-5.1); Alkaline Phosphatase 156 U/L (38-126); Anion Gap 11 mmol/L (4-12); Aspartate Amino Transferase 22 U/L (14-36); Bilirubin,Total 1.3 mg/dL (0.2-1.3); Blood Urea Nitrogen 28 mg/dL (7-17); Calcium 9.6 mg/dL (8.4-10.2); Carbon Dioxide 25 mmol/L (22-30); Chloride 105 mmol/L (98-107); Estimated Glomerular Filt Rate 46; Glucose 333 mg/dL (65-110); Osmolality Calculated 310 mOsm/kg (285-295); Potassium 4.8 mmol/L (3.4-5.0); Sodium 141 mmol/L (137-145); Total Protein 7.3 g/dL (6.3-8.2)
--- OUTSIDE RECORDS SUMMARY | 2025-08-27 09:47 | XMS_ITS | Clinical Summary ---
Author Organization [facility] [place] [facility] [place] [address] Address [address] [place] [address] Phone Care Team Providers Care Network Planner Name Role Phone Jag Burch MD Unavailable [phone] Homero Ordoñez NP Unavailable [phone] Slim Holt MD Primary Care Provide r Allergies No known active allergies Medications turmeric root extract 500 mg capsuleIndications :Arthritis of knee Take 500 mg by mouth 3 (three) times a day 90 capsule 6 08/22/20 21 Active Additional Information Patient not taking.Reported on 08/03/2025 blood-glucose meter miscIndications:Ty pe 2 diabetes mellitus without complication, without long-term current use of insulin ([facility]) Use to test blood glucose [...] nightly 90 capsule 1 07/24/20 24 Active Additional Information Patient not taking.Reported on 08/03/2025 levothyroxine (SYNTHROID) 88 mcg tabletIndications: Hypothyroidism, adult Take 1 tablet (88 mcg total) by mouth corporate manager before breakfast 90 tablet 2 07/24/20 24 Active blood glucose diagnostic (glucose blood) stripIndications:T ype 2 diabetes mellitus with stage 3b chronic kidney disease, without long-term current use of insulin ([facility]) Use to test blood glucose once daily. Dispense one touch Verio test strips 100 each 3 07/24/20 24 Active atorvastatin (LIPITOR) 40 mg tabletIndications: Type 2 diabetes mellitus with stage 3b chronic kidney disease, without long-term current use of insulin ([facility]),Multiple-typ e hyperlipidemia Take 1 tablet [...] before meals 90 tablet 09/26/20 24 Active Additional Information Patient not taking.Reported on 08/03/[address] (PROTONIX) 40 mg EC tabletIndications: [...] 180 tablet 2 10/03/20 24 026 Active furosemide (LASIX) 40 mg tablet Take 1 tablet (40 mg total) by mouth daily 90 tablet 3 11/13/19 25 026 Active spironolactone (ALDACTONE) 25 mg tablet Take 1 tablet (25 mg total) by mouth daily 90 tablet 3 11/13/19 25 026 Active Additional Information Patient not taking.Reported on 08/03/2025 dapagliflozin propanediol (FARXIGA) 10 mg tablet 1 [...] mL) pen injector injection 05/01/20 25 Active lisinopriL (PRINIVIL,ZESTRIL) 10 mg tablet Take 1 tablet (10 mg total) by mouth daily 90 tablet 3 07/02/20 25 026 Active losartan (COZAAR) 100 mg tablet 06/27/20 25 Active loperamide (IMODIUM) 2 mg capsule Take 1 capsule (2 mg total) by mouth 4 (four) times a day as needed for diarrhea Active polyethylene glycol (MIRALAX) 17 gram packetIndications: constipation Take 1 packet (17 g total) by mouth daily Active polysaccharide iron complex (NU-IRON) 150 mg iron capsuleIndications :Iron Deficiency Anemia Take 1 capsule (150 mg total) by mouth 2 (two) times a day Active amLODIPine (NORVASC) 10 mg tablet 07/29/20 25 Active bromfenac 0.07 % drops Administer 1 drop into both eyes 2 (two) times a day 3 mL 11 08/03/20 25 Active olopatadine (PATADAY) 0.2 % ophthalmic solutionIndication s:Allergic Conjunctivitis Administer 1 drop into both eyes daily 2.5 mL 11 08/03/20 25 Active olopatadine (PATADAY) 0.2 % ophthalmic solutionIndication s:Allergic Conjunctivitis 1 drop daily 025 Discontin ued(Reord er) Active Problems Problem Noted Date Diagnosed Date Allergic conjunctivitis of both eyes 08/07/2025 Assessment & Plan (08/07/2025 11:26 AM CDT): She has allergic conjunctivitis without systemic allergic symptoms. Start olopatadine 0.2% daily OU as needed. Refractive error 08/07/2025 Assessment & Plan (08/07/2025 11:27 AM CDT): Will update MRx with Dr. Mann next visit Acute on chronic heart failu re with [...] By: Dorian Restrepo MD 09/25/2024 4:27:21 PM LINE MAINTENANCE TECHNICIAN Moderate pulmonary hypertension 11/15/2024 Overview (11/15/2024): Discovered during hospitalization September 2025. Requested advice from Cardiology regarding further workup. Please refer to information under HFpEF Diarrhea 09/23/2024 Diabetic macular edema of left eye 09/23/2024 Assessment & Plan (08/07/2025 11:23 AM CDT): Unclear if this is due to diabetes or previous inflammation. Will start with topical NSAIDs, if this is not effective will consider anti-VEGF therapy. Start bromfenac BID OU Assessment & Plan (12/25/2024 7:03 AM LINE MAINTENANCE TECHNICIAN): Stable today. Will follow with OCT after stopping difluprednate drops Assessment & Plan (09/23/2024 9:58 PM LINE MAINTENANCE TECHNICIAN): Resolved today with oral prednisone taper. Will follow with OCT as she has stopped prednisone. UTI (urinary tract infection) 09/22/2024 Assessment & Plan (09/22/2024 3:51 PM LINE MAINTENANCE TECHNICIAN): Acute, found upon recent ER visit s/p [...] 09/22/2024 Assessment & Plan (09/22/2024 4:33 PM LINE MAINTENANCE TECHNICIAN): Worse in the last 1-2 weeks but uncontrollable in the last 2 days. Likely related to questionable urosepsis, see plan for UTI above. Dehydration 09/22/2024 Assessment & Plan (09/22/2024 4:39 PM LINE MAINTENANCE TECHNICIAN): Acute, found upon recent CMP done in [...] 09/22/2024 Assessment & Plan (09/22/2024 4:40 PM LINE MAINTENANCE TECHNICIAN): Acute, + in office today. See plan for dehydration below. Accepted for direct admit to [facility]. 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 She has had multiple adverse effects from prednisone including falls and hyperglycemia. Will plan for Ozurdex for further therapy if needed. Continue difluprednate daily OU Assessment & Plan (05/14/2025 2:29 PM CDT): No active inflammation, monitor Cont Durezol every day (QD) OU Assessment & Plan (12/25/2024 7:02 AM LINE MAINTENANCE TECHNICIAN): She has no active inflammation today. She has had multiple adverse effects from prednisone including falls and hyperglycemia. Will plan for Ozurdex for further therapy if needed.. OK to stay off of steroid drops. Assessment & Plan (09/23/2024 9:53 PM LINE MAINTENANCE TECHNICIAN): She has no active inflammation today after [...] 07/17/2024 Assessment & Plan (12/25/2024 7:01 AM LINE MAINTENANCE TECHNICIAN): She has persistent CME that is stable and non-central OS. Observe at this point, stressed BG control. Assessment & Plan (09/23/2024 9:54 PM LINE MAINTENANCE TECHNICIAN): She is off of oral prednisone and [...] Arch support shoes with metatarsal pad from [employer] Hematoma and contusion 03/09/2023 [...] 06/11/2019 Assessment & Plan (12/09/2019 11:28 AM LINE MAINTENANCE TECHNICIAN): Blood pressure much better controlled. She brought home log and cuff with her to today's visit and blood pressure 120-140 systolic and 70-80 diastolic. We will continue present medication regimen and refills will be sent to pharmacy. Assessment & Plan (11/11/2019 11:33 AM LINE MAINTENANCE TECHNICIAN): Blood pressure remains elevated, but better controlled [...] weeks. Assessment & Plan (11/04/2019 5:05 PM LINE MAINTENANCE TECHNICIAN): With uncontrolled blood pressure upon arrival to [...] 12/04/2023 Assessment & Plan (12/09/2019 12:18 PM LINE MAINTENANCE TECHNICIAN): Patient reports issues of anxiety, tearfulness and depression with coping through her son's cancer and hospice care. Have discussed with patient and we will begin a low dose celexa. She will follow up in 6 weeks to determine effectiveness. She is to call with any questions or concerns. Grief support group encouraged Blurred vision 11/11/2019 08/22/2021 Assessment & Plan (11/11/2019 11:30 AM LINE MAINTENANCE TECHNICIAN): Patient is reporting blurred vision worse in [...] 08/22/2021 Assessment & Plan (11/11/2019 11:29 AM LINE MAINTENANCE TECHNICIAN): Improved s/p antibiotic eye drops. There is concern for possible allergic component as she reports occasional clear discharge and redness. She was encouraged to continue daily allergy pill and to see electrician deck for further evaluation. Assessment & Plan (11/04/2019 5:02 PM LINE MAINTENANCE TECHNICIAN): Patient has erythema and mucoid discharge noted in left lower conjunctiva, with concern for possible bacterial conjunctivitis. Antibiotic ophthalmic solution sent. Patient instructed to use 2 drops in left eye QID x 5 days. If symptoms worsen or persist she was instructed to call. Encounters Date Type Department Care Team Description 08/03/2025 11:30 AM CDT Office Visit [facility] Medicine Ophthalmology [address] [place] [address] Health 6th [place] [phone] Jurgen Davis MD Intermediate uveitis of both eyes (Primary Dx); Diabetic macular edema of left eye; Type 2 diabetes mellitus with chronic kidney disease, without long-term current use of insulin, unspecified CKD stage (HCC); Allergic conjunctivitis of both eyes; Refractive error 07/02/2025 2:00 PM CDT Office Visit [facility] at [address] [place] [phone] Homero Ordoñez NP Multiple-type hyperlipidemia (Primary Dx); Hypertension complicating diabetes (HCC); Type 2 diabetes mellitus with chronic kidney disease, without long-term current use of insulin, unspecified CKD stage (HCC); Orthostatic hypotension from Last 3 Months Immunizations Immunization Administration [...] COLONOSCOPY 10/22/2016 - 10/21/2017 Single polyp in [place] Medical History Medical History Date Comments Diabetes mellitus, type 2 Hypertension Hypothyroid Cataract bilateral Varicose vein of [...] drink = 0.6 oz pur e alcohol) [facility] Utilities Answer Date Recorded In the past 12 months has e electric, gas, oil, or water company [...] often do you attend chur ch or orthodoxy services? Never 09/23/2024 Do you belong to any clubs o r organizations such as scientologist groups, unions, fraternal or athletic groups, or [...] staff should administer the PHQ-9) 1 07/24/2024 [facility] - Occupational Stress Questionnaire Answer [...] medical appointments or from getting medications? No 12/0 12/2023 In the past 12 months, has [...] any time in the past 12 m [facility], were you homeless or living in [...] on file Legal Sex Female 11:43 AM LINE MAINTENANCE TECHNICIAN Gender Identity Not on file Sexual Orientation [...] Sign Reading Time Taken Comments Blood Pressure 196/80 07/02/2025 2:00 PM CDT Pulse 79 07/02/2025 2:00 PM CDT Temperature 36.7 C (98.1 F) 10/03/2024 2:53 PM LINE MAINTENANCE TECHNICIAN Respiratory Rate 18 07/02/2025 2:00 PM CDT Oxygen Saturation 93% 10/03/2024 2:53 PM LINE MAINTENANCE TECHNICIAN Inhaled Oxygen Concentration - - Weight 73.9 kg (163 lb) 07/02/2025 2:00 PM CDT Height 152.4 cm (5') 07/02/2025 2:00 PM CDT Body Mass Index 31.83 07/02/2025 2:00 PM CDT Plan of Treatment Health Maintenance Due Date Last Done Comments Hepatitis B Screening 1958 Lipid Panel 04/20/2021 04/20/2020 Hemoglobin A1C 01/14/2025 07/17/2024, 01/0 05/2024, 04/26/2023, Additional history exists Covid-19 Vaccine (2024-2 6 season) 2025 08/07/2024, 01/26/2024, 01/26/2024, Additional history [...] 10/01/2024, Additional history exists Dilated Eye Exam 08/03/2026 08/03/2025, , 12/22/2024, Additional history exists DTaP/Tdap/Td Vaccine (2 - Td or Tdap) 06/22/2031 06/22/2021 Pneumococcal vaccine 65+ Completed 08/06/2020, 06/23 Zoster Vaccine Completed 02/01/2023, 11/10/2022 Procedures Procedure Name Priority Date/Time Associated Diagnosis Comments OCT, RETINA - OU - BOTH EYES Routine 08/03/2025 11:30 AM CDT Diabetic macular edema of left eye EGFR Routine 10/03/2024 9:15 AM LINE MAINTENANCE TECHNICIAN HEMOGLOBIN A1C Routine 07/17/2024 8:05 AM CDT Type 2 diabetes mellitus without complication, without long-term current use of insulin (HCC) ALBUMIN CREATININE RATIO, URINE Routine 07/17/2024 8:05 AM CDT Type 2 diabetes mellitus without complication, without long-term current use of insulin (HCC) DEXA AXIAL SKELETON BONE DENSITY 1 OR MORE SITES Schedule Routine, Read Routine (OP Routine) 08/31/2023 12:55 PM LINE MAINTENANCE TECHNICIAN Menopause LIPID PANEL Routine 04/20/2020 12:37 PM CDT Benign hypertension Multiple-type hyperlipidemia from Last 3 Months or Most Recently Relevant to Health Maintenance Results * OCT, Retina - OU - Both Eyes (08/03/2025 11:30 AM CDT) Anatomical Region Laterality Modality Head Optical Coherenc e Tomography Narrative 08/07/2025 11:21 AM CDT Right Eye Quality was good. Scan locations included subfoveal. Left Eye Quality was good. Scan locations included subfoveal. Notes OD: few nasal cystoid spaces, new from prior. OCT is thickened by automated segmentation. OS: Worsening of non-central cytosid spaces. OCT is thickened by automated segmentation. us Jurgen Davis MD OPHTH TOMOGRAPHY Final Res ult * eGFR (10/03/2024 9:15 AM LINE MAINTENANCE TECHNICIAN) eGFR 63 >=60 mL/min/1. 73 m2 Comment: [...] last reviewed 2021. Blood 10/03/2024 9:15 AM LINE MAINTENANCE TECHNICIAN 10/03/2024 9:28 AM LINE MAINTENANCE TECHNICIAN Geo Khanna MD LAB BLOOD ORDERABLES Final Resu lt Performing Organization Address City/[facility]/ZIP Co de Phone Number FRANCESEMA [facility] ([facility] Department [place] [address] * Albumin Creatinine Ratio, Urine (07/17/2024 8:05 AM CDT) Albumin Ur 13.7 mg/L Comment: Interpretive Data No reference range established. Current interpretive data was last revised 2019. Testing performed by: [address] [address] Creatinine Ur 121.0 mg/dL TAYO Comment: Interpretive Data No reference range established. Current interpretive data was last revised 2019. Testing performed by: [address] [address] Albumin Creatinine Ratio, Ur 11 1 - 29 mg/g TAYO Comment:Testing performed by : [address] [address] Urine 07/17/2024 8:05 AM CDT 07/17/2024 12:44 PM CDT Marni Barbosa MD LAB URINE ORDERABLES Final Result Performing Organization Address [facility]/ZIP Co de Phone Number TAYO [address] Department [place] [address] * (ABNORMAL) Hemoglobin A1c (07/17/2024 8:05 AM CDT) Hgb A1C 6.8(H) 4.0 - 5.6 % Comment:Testing performed by : [address] [address] Estimated Average Glucose 148 mg/dL TAYO Comment: The [place] recommends reporting an estimated Average Glucose (eAG) with all Hemoglobin A1c results using the equation derived from a study of 507 normal and diabetic adults. Minority populations were underrepresented and children were not included. (Diabetes Care 31:6401-5577, 2008). The eAG is not equivalent to a fasting glucose. Testing performed by: [facility], [address] [place] [address]., [address] Blood 07/17/2024 8:05 AM CDT 07/17/2024 12:44 PM CDT us Marni Barbosa MD LAB BLOOD ORDERABLES Final Result TAYO [address] [facility] Department [place] [address] * Dexa Axial Skeleton Bone Density 1 or 2 Site (08/31/2023 12:55 PM LINE MAINTENANCE TECHNICIAN) Anatomical Region Laterality Modality Body N/A Other 08/31/2023 1:23 PM LINE MAINTENANCE TECHNICIAN Narrative 08/31/2023 1:25 PM LINE MAINTENANCE TECHNICIAN EXAM DESCRIPTION: DEXA AXIAL SKELETON BONE DENSITY 1 OR MORE SITES REASON FOR STUDY: 82 y/o year old F with given history of: menopause Osteoporosis screening Post menopausal Rink Rat/Model: [employer] Lab Discovery SL (S/N [id number]) CLINICAL INFORMATION: Current height: 65.5 inches Maximum [...] Collin Vargas M.D. MF: HECTOR Report ID: [id number] Reading Location: [place] [address] Procedure Note Collin Vargas MD - 08/31/2023 EXAM DESCRIPTION: DEXA AXIAL SKELETON BONE DENSITY 1 OR MORE SITES REASON FOR STUDY: 82 y/o year old F with given history of: menopause Osteoporosis screening Post menopausal Rink Rat/Model: [employer]ers Lab Discovery SL (S/N [id number]) CLINICAL INFORMATION: Current height: 65.5 inches Maximum [...] Collin Vargas M.D. MF: HECTOR Report ID: [id number] Reading Location: [place] [address] us Marni Barbosa MD IMG DXA PROCEDURES Final R esult * (ABNORMAL) Lipid panel (04/20/2020 12:37 PM CDT) [facility] Cholesterol 154 30 - 199 mg/dL TAYO [...] 2018. LDL, calculated 45 <=129 mg/dL TAYO Comment: Interpretive Data Ages < [...] on 2018. 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
== END 2025-08-26 09:57 | disposition home or self-care (01) ==
LOC: CHSLAB 10:02
PROVIDERS: PCP Family Medicine; Visit Provider Family Medicine
DX: E11.9 Type 2 diabetes mellitus without complications (principal); E03.9 Hypothyroidism, unspecified; D64.9 Anemia, unspecified
CPT/HCPCS: 36415; 80053; 81001; 82043; 83036; 85027